=== PATIENT | female | born 1940 | race Two or more races ===

== ENCOUNTER 2019-05-01 16:51 | Inpatient (IN) | payer MEDICARE, MEDICAID ==
[~2019-05-01] VITALS: Ht 162.6 cm; Wt 118.1 kg
[~2019-05-01 16:51] MED LIST: ADVAIR 100-501 EACH INH; ALBUTEROL SULF8.5 GM INH; AMBIEN10 MG ORAL; AMIODARONE HCL200 MG ORAL; ATIVAN0.5 MG ORAL; ATIVAN2 MG ORAL; COLACE100 MG ORAL; GABAPENTIN300 MG ORAL; IBUPROFEN600 MG ORAL; LANOXIN250 MCG ORAL; LASIX20 M1 ORAL; LEVAQUIN250 M1 ORAL; MEDROL DOSEPAK4 MG ORAL; MYLANTA ORAL; NASAL SPRAY30 M1 NASAL; NITROSTAT0.4 M1 SL; PRAVACHOL20 MG ORAL; PREVACID15 MG ORAL; PROMETHAZINE-C118 M1 ORAL; QUETIAPINE FUMA25 MG ORAL; SPIRIVA18 MCG INH; THEOPHYLLINE A100 MG ORAL; TOPROL XL50 MG ORAL; TYLENOL650 MG/20. ORAL; XARELTO10 MG ORAL
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
[2019-05-01 17:00] VITALS: BP 156/75
[2019-05-01] MEDS ORDERED: Ipratropium 0.02% Inh Soln 2.5ml UD HHN ONE (17:00)
[2019-05-01] MEDS ORDERED: Solu-MEDROL 125mg Inj IVP ONE (17:00)
[2019-05-01] MEDS ORDERED: Albuterol ud Inhalation HHN ONE (17:00)
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
--- NOTE | 2019-05-01 17:05 | NUR ---
ED Nurse Note: rspiratory therapist on bedside giving nebulization.
--- NOTE | 2019-05-01 17:28 | NUR ---
ED Nurse Note: xray on bedside
[2019-05-01 17:41] LABS: BASOPHILS % (AUTO) 0.8 % (0.0-2.0); EOSINOPHILS % (AUTO) 2.1 % (0.0-3.0); HEMATOCRIT 37.8 % (37.0-47.0); HEMOGLOBIN 11.5 G/DL (12.0-16.0); LYMPHOCYTES % (AUTO) 17.3 % (20.0-45.0); MEAN CORPUSCULAR VOLUME 76 FL (80-99); MONOCYTES % (AUTO) 6.2 % (1.0-10.0); NEUTROPHILS % (AUTO) 73.6 % (45.0-75.0); PLATELET COUNT 269 K/UL (150-450); RED BLOOD COUNT 4.95 M/UL (4.20-5.40); RED CELL DISTRIBUTION WIDTH 17.2 % (11.6-14.8); WHITE BLOOD COUNT 10.7 K/UL (4.8-10.8)
[2019-05-01 17:54] LABS: ANION GAP 8 mmol/L (5-15); BLOOD UREA NITROGEN 10 mg/dL (7-18); CALCIUM 8.9 MG/DL (8.5-10.1); CARBON DIOXIDE 28 MMOL/L (21-32); CHLORIDE 106 MMOL/L (98-107); CREATININE 0.9 MG/DL (0.55-1.30); INR 1.6 (0.9-1.1); POTASSIUM 3.5 MMOL/L (3.5-5.1); SODIUM 142 MMOL/L (136-145)
[2019-05-01 18:03] LABS: ALANINE AMINOTRANSFERASE 16 U/L (12-78); ALBUMIN 3.3 G/DL (3.4-5.0); ALBUMIN/GLOBULIN RATIO 0.8 (1.0-2.7); ALKALINE PHOSPHATASE 96 U/L (46-116); ASPARTATE AMINO TRANSFERASE 29 U/L (15-37); BILIRUBIN,TOTAL 0.3 MG/DL (0.2-1.0); CREATINE KINASE 45 U/L (26-308)
[2019-05-01 18:13] VITALS: BP 158/80
[2019-05-01 18:14] LABS: APPEARANCE,URINE CLEAR; BILIRUBIN, URINE NEGATIVE (NEGATIVE); GLUCOSE, URINE (UA) NEGATIVE (NEGATIVE); KETONES,URINE NEGATIVE (NEGATIVE); LEUKOCYTE ESTERASE ,URINE 1+ (NEGATIVE); NITRITE,URINE NEGATIVE (NEGATIVE); PH,URINE 7 (4.5-8.0); PROTEIN,URINE 1+ (NEGATIVE); UROBILINOGEN,URINE 4 MG/DL (0.0-1.0)
[2019-05-01 18:15] LABS: COLOR,URINE YELLOW
[2019-05-01] MEDS ORDERED: Hydromorphone 0.5mg/0.5ml inj IVP ONE (18:30)
--- NOTE | 2019-05-01 18:34 | NUR ---
ED Nurse Note: ermd on bedside talking to pt regarding the hospital admission, pt is aware.
[2019-05-01] MEDS ORDERED: LORazepam Inj 2mg/ml 1ml IV ONE (19:00)
--- NOTE | 2019-05-01 19:35 | NUR ---
ED Nurse Note: Anabelle's O2 sat went down to 77, placed patient on 2L via NC.
[2019-05-01] MEDS ORDERED: Nitroglycerin Subl 0.4mg tab SL PRN (19:45)
[2019-05-01] MEDS ORDERED: LORazepam 0.5mg tab ORAL PRN (19:45)
[2019-05-01 20:00] VITALS: BP 161/85
[2019-05-01 20:50] VITALS: BP 155/76
--- NOTE | 2019-05-01 20:50 | NUR ---
ED Nurse Note: Patient was transfered to Tele due to CP, for observation. Patient was transfered to the unit via gurney by ACLS protocol, with all belongings. AAO x4, VSS at this time, skin is intact, warm to touch.
--- NOTE | 2019-05-01 21:00 | NUR ---
NURSE NOTES: Received report and patient via gurney from JERRY Steward from ED. Patient is awake showing no signs of acute distress. Respiration even and non labored 1.5L O2 NC. No sob noted. AOx4. ekg monitor tech on showing A-fib(hx, controlled). IV on right AC 20g patent and intact. Oriented to room and unit. Bed in lowest position, wheels locked and alarm on. Call light within reach. All needs attended and met. Will continue plan of care.
[2019-05-01] MEDS: Docusate 100mg cap ORAL SCH (21:32)
[2019-05-01] MEDS: QUEtiapine 200mg tab ORAL SCH (21:32)
[2019-05-01] MEDS: ALPRAZolam 0.5mg tab ORAL PRN (21:39)
--- NOTE | 2019-05-01 22:45 | History and Physical Report ---
DATE OF ADMISSION: 05/01/2019 REASON FOR ADMISSION: 1. Shortness of breath. 2. Chest pain. HISTORY OF PRESENT ILLNESS: The patient is a 78-year-old female brought in by EMS after complaining of some shortness of breath and wheezing along with chest pain. She does have known COPD and atrial fibrillation with multiple admissions in the past for similar complaints. The patient states she quit smoking approximately four years ago and that today despite her breathing treatments, she started to wheeze and not feel well and started developing progressive shortness of breath. The patient says she is quite anxious and takes Xanax on a regular basis and she feels dehydrated. She had been on Lasix. PAST MEDICAL HISTORY: 1. Atrial fibrillation. 2. COPD. 3. Chest pain. 4. Coronary artery disease. 5. Anxiety. 6. Hyperlipidemia. 7. CHF. PAST SURGICAL HISTORY: Noncontributory. ALLERGIES: Codeine and morphine. FAMILY HISTORY: Positive for hypertension and diabetes. REVIEW OF SYSTEMS: NEUROLOGIC: The patient denies headache, change in vision, syncope, or presyncopal episodes. CARDIOVASCULAR: She was having some chest pressure and tightness. PULMONARY: Mild shortness of breath and nonproductive cough. GASTROINTESTINAL/GENITOURINARY: No change in urinary or bowel habits. No nausea, vomiting, or diarrhea. ENDOCRINOLOGY: No night sweats, fevers, or chills. PHYSICAL EXAMINATION: VITAL SIGNS: Blood pressure 158/80, respiratory rate 20, pulse 90, and temperature 98.2. 100% oxygen saturation on room air. GENERAL: The patient is awake and alert, in mild respiratory distress. HEENT: Extraocular muscles intact. No lymphadenopathy noted. Oropharyngeal mucosa is clear and dry. CARDIOVASCULAR: S1, S2, irregular. PULMONARY: Mild diffuse expiratory wheezing, anterior and posterior upper and lower lobes. Fair air movement in all lung cid. ABDOMEN: Obese, nondistended, and nontender. EXTREMITIES: Mild erythema with edema. LABORATORY DATA: Labs dated 05/01/2019, white cell count 10.7, hemoglobin 11.5, and platelet count 269,000. Toxicology screen negative. BUN 10, creatinine 0.9, potassium 3.5, sodium 142. Troponin 0. ASSESSMENT AND PLAN: 1. Chronic obstructive pulmonary disease exacerbation. At this time, nebulizer treatments along with IV steroids have been initiated. Pulmonary has been consulted for further evaluation and management along with gentle hydration. 2. Chest pain. At this time, the patient says she has a history of coronary artery disease. Troponins are negative and unremarkable EKG and as such Cardiology has been consulted for further evaluation and management. Troponin initially at 0. We will repeat in a.m. 3. Hypertension. We will adjust medications as deemed appropriate. 4. Chronic anxiety followed by Psychiatry, on Xanax 2 mg every evening along with Seroquel 200 mg. 5. DVT prophylaxis. The patient is already on Xarelto. 6. Atrial fibrillation, chronic in nature. The patient on Xarelto. Edward Garcia MD DR: DERRICK JOB#: [id number] CC:
[2019-05-02] VITALS: BP 119/73
[2019-05-02] MEDS: Solu-MEDROL 40mg Inj IVP SCH ×4 (01:07→17:25)
[2019-05-02] MEDS: Albuterol/Ipratropium 3ml neb HHN SCH ×4 (01:44→19:13)
[2019-05-02 04:00] VITALS: BP 135/66
[2019-05-02 07:17] LABS: HEMATOCRIT 39.2 % (37.0-47.0); HEMOGLOBIN 11.9 G/DL (12.0-16.0); MEAN CORPUSCULAR VOLUME 78 FL (80-99); PLATELET COUNT 276 K/UL (150-450); RED BLOOD COUNT 5.02 M/UL (4.20-5.40); RED CELL DISTRIBUTION WIDTH 18.6 % (11.6-14.8)
--- NOTE | 2019-05-02 07:17 | NUR ---
HAND-OFF: Report given to JERRY Palacio.
--- NOTE | 2019-05-02 07:18 | NUR ---
NURSE NOTES: Received report from JERRY Venegas. Patient is resting in bed, sleeping in semi winters position. patient in stable condition with no hugh and symptoms of acute distress at this time. Breathing is unlabored with 1.5 liter Nasal cannula. Bed is in lowest position with two side rails up, brakes engaged . Call light and bed side table are within reach. Will continue plan of care.
[2019-05-02 07:41] LABS: ANION GAP 7 mmol/L (5-15); BLOOD UREA NITROGEN 11 mg/dL (7-18); CALCIUM 9.3 MG/DL (8.5-10.1); CARBON DIOXIDE 29 MMOL/L (21-32); CHLORIDE 107 MMOL/L (98-107); CREATININE 0.9 MG/DL (0.55-1.30); SODIUM 143 MMOL/L (136-145)
[2019-05-02 08:00] VITALS: BP 140/74
[2019-05-02] MEDS: Docusate 100mg cap ORAL SCH ×2 (09:04→20:41)
[2019-05-02] MEDS: Amiodarone 200mg tab ORAL SCH ×2 (09:04→17:26)
[2019-05-02] MEDS: Metoprolol Succinate XL 50mg tab ORAL SCH (09:05)
[2019-05-02] MEDS: Xarelto 15mg tab ORAL SCH (09:05)
[2019-05-02] MEDS: Aspirin Baby 81mg ORAL SCH (09:05)
--- NOTE | 2019-05-02 09:26 | Nephrology Progress Note ---
Assessment/Plan Assessment/Plan: 1. COPD exacerbation. -nebulizer treatments along with IV steroids - Pulmonary has been consulted for further evaluation and management - IVFs stopped 2. Chest pain. she has a history of coronary artery disease. - Troponins are negative and unremarkable EKG - Cardiology has been consulted 3. Hypertension. We will adjust medications as deemed appropriate. 4. Chronic anxiety followed by Psychiatry, on Xanax 2 mg every evening along with Seroquel 200 mg. 5. DVT prophylaxis. The patient is already on Xarelto. 6. Atrial fibrillation, chronic in nature. The patient on Xarelto. Subjective Date patient seen: May 02, 2019 Time patient seen: 09:23 ROS Limited/Unobtainable: No Allergies: Coded Allergies: CODEINE (Verified Allergy, Unknown, 09/03/16) MORPHINE (Unverified Allergy, Unknown, 05/01/19) Subjective Patient says chest pain better but still little short of breath Objective Last 24 Hour Vital Signs Date Time Temp Pulse Resp B/P (MAP) Pulse Ox O2 Delivery O2 Flow Rate FiO2 05/02/19 09:05 84 140/74 05/02/19 08:00 98.9 84 18 140/74 (96) 98 05/02/19 06:59 72 16 92 Nasal Cannula 2.0 28 05/02/19 06:58 76 18 97 Nasal Cannula 2.0 28 05/02/19 06:50 36 05/02/19 06:50 71 16 92 Room Air 21 05/02/19 04:00 87 05/02/19 04:00 98.6 100 18 135/66 (89) 95 05/02/19 01:50 86 20 96 Nasal Cannula 2.0 28 05/02/19 01:39 91 20 92 Nasal Cannula 2.0 28 05/02/19 00:00 98.6 80 20 119/73 (88) 97 05/02/19 00:00 103 05/01/19 21:00 Nasal Cannula 1.5 05/01/19 21:00 Nasal Cannula 1.5 05/01/19 20:50 98.3 98 20 155/76 97 Room Air 21 05/01/19 20:50 98.3 98 20 161/85 97 Room Air 21 05/01/19 20:00 96 05/01/19 20:00 98.3 98 20 161/85 (110) 97 05/01/19 19:08 98.2 05/01/19 18:13 90 20 158/80 95 05/01/19 17:10 88 18 100 Room Air 21 05/01/19 17:00 98.2 63 16 156/75 93 Room Air 21 05/01/19 17:00 63 16 93 Room Air 21 05/01/19 17:00 36 05/01/19 17:00 63 16 Room Air 21 05/01/19 17:00 78 16 93 Room Air 21 05/01/19 16:44 98.2 84 18 156/75 (102) 95 Room Air Intake and Output 05/01/19 05/02/19 19:00 07:00 Intake Total 300 ml 500 ml Balance 300 ml 500 ml Intake IV Total 300 ml Other 500 ml # Voids 3 Laboratory Tests 05/01/19 17:00: White Blood Count 10.7, Red Blood Count 4.95, Hemoglobin 11.5L, Hematocrit 37.8 , Mean Corpuscular Volume 76L, Mean Corpuscular Hemoglobin 23.3L, Mean Corpuscular Hemoglobin Concent 30.5L, Red Cell Distribution Width 17.2H, Platelet Count 269, Mean Platelet Volume 7.2, Neutrophils (%) (Auto) 73.6, Lymphocytes (%) (Auto) 17.3L, Monocytes (%) (Auto) 6.2, Eosinophils (%) (Auto) 2.1, Basophils (%) (Auto) 0.8, Prothrombin Time 16.7H, Prothromb Time International Ratio 1.6H, Activated Partial Thromboplast Time 45H, Sodium Level 142, Potassium Level 3.5, Chloride Level 106, Carbon Dioxide Level 28, Anion Gap 8, Blood Urea Nitrogen 10, Creatinine 0.9, Estimat Glomerular Filtration Rate , Glucose Level 119H, Lactic Acid Level 1.80, Calcium Level 8.9, Magnesium Level 1.9, Total Bilirubin 0.3, Aspartate Amino Transf (AST/SGOT) 29, Alanine Aminotransferase (ALT/SGPT) 16, Alkaline Phosphatase 96, Total Creatine Kinase 45, Troponin I 0.000, Pro-B-Type Natriuretic Peptide 1638H, Total Protein 7.2, Albumin 3.3L, Globulin 3.9, Albumin/Globulin Ratio 0.8L, Lipase 117, Serum Alcohol < 3 05/01/19 17:52: Urine Color Yellow, Urine Appearance Clear, Urine pH 7, Urine Specific [place] 1.005, Urine Protein 1+H, Urine Glucose (UA) Negative, Urine Ketones Negative, Urine Blood 1+H, Urine Nitrite Negative, Urine Bilirubin Negative, Urine Urobilinogen 4H, Urine Leukocyte Esterase 1+H, Urine RBC 0-2, Urine WBC 0-2, Urine Squamous Epithelial Cells Few, Urine Bacteria Occasional, Urine Opiates Screen Negative, Urine Barbiturates Screen Negative, Phencyclidine (PCP) Screen Negative, Urine Amphetamines Screen Negative, Urine Benzodiazepines Screen Negative, Urine Cocaine Screen Negative, Urine Marijuana (THC) Screen Negative 05/02/19 06:26: White Blood Count 9.0, Red Blood Count 5.02, Hemoglobin 11.9L, Hematocrit 39.2, Mean Corpuscular Volume 78L, Mean Corpuscular Hemoglobin 23.7L, Mean Corpuscular Hemoglobin Concent 30.3L, Red Cell Distribution Width 18.6H, Platelet Count 276, Mean Platelet Volume 7.7, Neutrophils (%) (Auto) , Lymphocytes (%) (Auto) , Monocytes (%) (Auto) , Eosinophils (%) (Auto) , Basophils (%) (Auto) , Sodium Level 143, Potassium Level 4.0, Chloride Level 107 , Carbon Dioxide Level 29, Anion Gap 7, Blood Urea Nitrogen 11, Creatinine 0.9, Estimat Glomerular Filtration Rate , Glucose Level 202H, Calcium Level 9.3, Troponin I 0.001, Differential Total Cells Counted 100, Neutrophils % (Manual) 85H, Lymphocytes % (Manual) 13L, Monocytes % (Manual) 2, Eosinophils % (Manual) 0, Basophils % (Manual) 0, Band Neutrophils 0, Platelet Estimate Adequate, Platelet Morphology Normal, Anisocytosis 1+ Height (Feet): 5 Height (Inches): 4.00 Weight (Pounds): 265 General Appearance: no apparent distress, alert EENT: normal ENT inspection Neck: normal alignment, supple Cardiovascular: normal rate, regular rhythm Respiratory/Chest: expiratory wheezing Abdomen: non tender, soft Edema: 1+ Arm (L), 1+ Arm (R), 1+ Leg (L), 1+ Leg (R), 1+ Pedal (L), 1+ Pedal ( R), 1+ Generalized Edward Garcia MD May 02, 2019 09:26
--- NOTE | 2019-05-02 11:20 | Diagnostic Imaging Report ---
Indication: Shortness of breath Technique: One view of the chest Comparison: 02/12/2016 Findings: The heart is enlarged. There is mild interstitial congestion. There is a new finding since prior exam. The pleural spaces are grossly clear. Impression: Cardiomegaly with evidence of mild interstitial edema.
--- NOTE | 2019-05-02 11:52 | NUR ---
PT NOTE Attempted to see patient for PT evaluation. Received patient asleep, arouseable to verbal stimuli. Began to interview patient regarding prior living situation and prior functional status. While speaking with the patient. the patient fell asleep and was not arouseable to verbal stimuli. Unable to complete PT evaluation at this time. Hakeem EDWARDS notified, will re-attempt PT evaluation tomorrow.
--- NOTE | 2019-05-02 11:56 | Consultation ---
History of Present Illness General Date patient seen: May 02, 2019 Time patient seen: 11:52 Chief Complaint: Chest Pain Present Illness HPI pt was brought in by ambulance from home c/o sob and chest pain. pt stated she has chest pain after having argument with her son, she was complaining of some shortness of breath and wheezing along with chest pain. She does have known COPD and atrial fibrillation with multiple admissions in the past for similar complaints. The patient states she quit smoking approximately four years ago and that today despite her breathing treatments, she started to wheeze and not feel well and started developing progressive shortness of breath. Chest x ray with Cardiomegaly with evidence of mild interstitial edema. Troponin negative, BNp elevated Allergies: Coded Allergies: CODEINE (Verified Allergy, Unknown, 09/03/16) MORPHINE (Unverified Allergy, Unknown, 05/01/19) Medication History Scheduled Amiodarone Hcl* (Cordarone*), 200 MG ORAL EVERY 12 HOURS, (Reported) Furosemide* (Lasix*), 20 MG ORAL TWICE A DAY, (Reported) Gabapentin* (Gabapentin*), 600 MG ORAL QHS, (Reported) Lansoprazole* (Prevacid*), MG ORAL DAILY, (Reported) Lorazepam* (Ativan*), 0.5 MG ORAL QHS, (Reported) Metoprolol Succinate* (Toprol Xl*), 50 MG ORAL DAILY, (Reported) Pravastatin Sod* (Pravachol*), 40 MG ORAL BEDTIME, (Reported) Rivaroxaban (Xarelto*), 15 MG ORAL DAILY, (Reported) Scheduled PRN Acetaminophen (Acetaminophen), 650 MG ORAL Q6H PRN for Prn Headache/Temp > 101, (Reported) Ibuprofen* (Motrin*), 600 MG ORAL Q6H PRN for For Pain, (Reported) Nitroglycerin (Nitrostat), 0.4 MG SL Q5M X3 DOSES PRN for CHEST PAIN, (Reported) Patient History Healthcare decision maker N Resuscitation status Full Code Advanced Directive on File Review of Systems Constitutional: Reports: no symptoms Eye: Reports: no symptoms ENT: Reports: no symptoms Respiratory: Reports: no symptoms Cardiovascular: Reports: chest pain Gastrointestinal: Reports: no symptoms Genitourinary: Reports: no symptoms Musculoskeletal: Reports: no symptoms Skin: Reports: no symptoms Psychiatric: Reports: no symptoms Neurological: Reports: no symptoms Endocrine: Reports: no symptoms Hematologic/Lymphatic: Reports: no symptoms Physical Exam General Appearance: no apparent distress, alert Lines, tubes and drains: peripheral HEENT: normocephalic, atraumatic, anicteric Neck: non-tender, normal alignment, supple, normal inspection Respiratory/Chest: chest wall non-tender, lungs clear, normal breath sounds Cardiovascular/Chest: normal peripheral pulses, normal rate, arrhythmia Abdomen: normal bowel sounds, non tender, soft, no organomegaly, no mass Extremities: normal range of motion, non-tender Last 24 Hour Vital Signs Date Time Temp Pulse Resp B/P (MAP) Pulse Ox O2 Delivery O2 Flow Rate FiO2 05/02/19 09:05 84 140/74 05/02/19 08:00 81 05/02/19 08:00 98.9 84 18 140/74 (96) 98 05/02/19 06:59 72 16 92 Nasal Cannula 2.0 28 05/02/19 06:58 76 18 97 Nasal Cannula 2.0 28 05/02/19 06:50 36 05/02/19 06:50 71 16 92 Room Air 21 05/02/19 04:00 87 05/02/19 04:00 98.6 100 18 135/66 (89) 95 05/02/19 01:50 86 20 96 Nasal Cannula 2.0 28 05/02/19 01:39 91 20 92 Nasal Cannula 2.0 28 05/02/19 00:00 98.6 80 20 119/73 (88) 97 05/02/19 00:00 103 05/01/19 21:00 Nasal Cannula 1.5 05/01/19 21:00 Nasal Cannula 1.5 05/01/19 20:50 98.3 98 20 155/76 97 Room Air 21 05/01/19 20:50 98.3 98 20 161/85 97 Room Air 21 05/01/19 20:00 96 05/01/19 20:00 98.3 98 20 161/85 (110) 97 05/01/19 19:08 98.2 05/01/19 18:13 90 20 158/80 95 05/01/19 17:10 88 18 100 Room Air 21 05/01/19 17:00 98.2 63 16 156/75 93 Room Air 21 05/01/19 17:00 63 16 93 Room Air 21 05/01/19 17:00 36 05/01/19 17:00 63 16 Room Air 21 05/01/19 17:00 78 16 93 Room Air 21 05/01/19 16:44 98.2 84 18 156/75 (102) 95 Room Air Intake and Output 05/01/19 05/02/19 19:00 07:00 Intake Total 300 ml 500 ml Balance 300 ml 500 ml Intake IV Total 300 ml Other 500 ml # Voids 3 Laboratory Tests Test 05/01/19 17:00 05/01/19 17:52 05/02/19 06:26 White Blood Count 10.7 K/UL (4.8-10.8) 9.0 K/UL (4.8-10.8) Red Blood Count 4.95 M/UL (4.20-5.40) 5.02 M/UL (4.20-5.40) Hemoglobin 11.5 G/DL (12.0-16.0) L 11.9 G/DL (12.0-16.0) L Hematocrit 37.8 % (37.0-47.0) 39.2 % (37.0-47.0) Mean Corpuscular Volume 76 FL (80-99) L 78 FL (80-99) L Mean Corpuscular Hemoglobin 23.3 PG (27.0-31.0) L 23.7 PG (27.0-31.0) L Mean Corpuscular Hemoglobin Concent 30.5 G/DL (32.0-36.0) L 30.3 G/DL (32.0-36.0) L Red Cell Distribution Width 17.2 % (11.6-14.8) H 18.6 % (11.6-14.8) H Platelet Count 269 K/UL (150-450) 276 K/UL (150-450) Mean Platelet Volume 7.2 FL (6.5-10.1) 7.7 FL (6.5-10.1) Neutrophils (%) (Auto) 73.6 % (45.0-75.0) % (45.0-75.0) Lymphocytes (%) (Auto) 17.3 % (20.0-45.0) L % (20.0-45.0) Monocytes (%) (Auto) 6.2 % (1.0-10.0) % (1.0-10.0) Eosinophils (%) (Auto) 2.1 % (0.0-3.0) % (0.0-3.0) Basophils (%) (Auto) 0.8 % (0.0-2.0) % (0.0-2.0) Prothrombin Time 16.7 SEC (9.30-11.50) H Prothromb Time International Ratio 1.6 (0.9-1.1) H Activated Partial Thromboplast Time 45 SEC (23-33) H Sodium Level 142 MMOL/L (136-145) 143 MMOL/L (136-145) Potassium Level 3.5 MMOL/L (3.5-5.1) 4.0 MMOL/L (3.5-5.1) Chloride Level 106 MMOL/L (98-107) 107 MMOL/L (98-107) Carbon Dioxide Level 28 MMOL/L (21-32) 29 MMOL/L (21-32) Anion Gap 8 mmol/L (5-15) 7 mmol/L (5-15) Blood Urea Nitrogen 10 mg/dL (7-18) 11 mg/dL (7-18) Creatinine 0.9 MG/DL (0.55-1.30) 0.9 MG/DL (0.55-1.30) Estimat Glomerular Filtration Rate mL/min (>60) mL/min (>60) Glucose Level 119 MG/DL (74-106) H 202 MG/DL (74-106) H Lactic Acid Level 1.80 mmol/L (0.4-2.0) Calcium Level 8.9 MG/DL (8.5-10.1) 9.3 MG/DL (8.5-10.1) Magnesium Level 1.9 MG/DL (1.8-2.4) Total Bilirubin 0.3 MG/DL (0.2-1.0) Aspartate Amino Transf (AST/SGOT) 29 U/L (15-37) Alanine Aminotransferase (ALT/SGPT) 16 U/L (12-78) Alkaline Phosphatase 96 U/L (46-116) Total Creatine Kinase 45 U/L (26-308) Troponin I 0.000 ng/mL (0.000-0.056) 0.001 ng/mL (0.000-0.056) Pro-B-Type Natriuretic Peptide 1638 pg/mL (0-125) H Total Protein 7.2 G/DL (6.4-8.2) Albumin 3.3 G/DL (3.4-5.0) L Globulin 3.9 g/dL Albumin/Globulin Ratio 0.8 (1.0-2.7) L Lipase 117 U/L (73-393) Serum Alcohol < 3 mg/dL Urine Color Yellow Urine Appearance Clear Urine pH 7 (4.5-8.0) Urine Specific [place] 1.005 (1.005-1.035) Urine Protein 1+ (NEGATIVE) H Urine Glucose (UA) Negative (NEGATIVE) Urine Ketones Negative (NEGATIVE) Urine Blood 1+ (NEGATIVE) H Urine Nitrite Negative (NEGATIVE) Urine Bilirubin Negative (NEGATIVE) Urine Urobilinogen 4 MG/DL (0.0-1.0) H Urine Leukocyte Esterase 1+ (NEGATIVE) H Urine RBC 0-2 /HPF (0 - 2) Urine WBC 0-2 /HPF (0 - 2) Urine Squamous Epithelial Cells Few /LPF (NONE/OCC) Urine Bacteria Occasional /HPF (NONE) Urine Opiates Screen Negative (NEGATIVE) Urine Barbiturates Screen Negative (NEGATIVE) Phencyclidine (PCP) Screen Negative (NEGATIVE) Urine Amphetamines Screen Negative (NEGATIVE) Urine Benzodiazepines Screen Negative (NEGATIVE) Urine Cocaine Screen Negative (NEGATIVE) Urine Marijuana (THC) Screen Negative (NEGATIVE) Differential Total Cells Counted 100 Neutrophils % (Manual) 85 % (45-75) H Lymphocytes % (Manual) 13 % (20-45) L Monocytes % (Manual) 2 % (1-10) Eosinophils % (Manual) 0 % (0-3) Basophils % (Manual) 0 % (0-2) Band Neutrophils 0 % (0-8) Platelet Estimate Adequate Platelet Morphology Normal Anisocytosis 1+ Height (Feet): 5 Height (Inches): 4.00 Weight (Pounds): 265 Medications Current Medications Medications (Trade) Dose Ordered Sig/Hoa Route PRN Reason Start Time Stop Time Status Last Admin Dose Admin Acetaminophen (Tylenol) 650 mg Q4H PRN ORAL Mild Pain (Pain Scale 1-3) 05/01/19 19:45 05/31/19 19:44 Albuterol/ Ipratropium (Albuterol/ Ipratropium) 3 ml Q6HRT HHN 05/02/19 01:00 05/07/19 00:59 05/02/19 06:57 Alprazolam (Xanax) 2 mg QHS PRN ORAL For Anxiety 05/01/19 20:00 05/08/19 19:59 05/01/19 21:39 Amiodarone HCl (Cordarone) 200 mg BID ORAL 05/02/19 09:00 06/01/19 08:59 05/02/19 09:04 Aspirin (ASA) 81 mg DAILY ORAL 05/02/19 09:00 06/01/19 08:59 05/02/19 09:05 Dextrose (Dextrose 50%) 25 ml Q30M PRN IV Hypoglycemia 05/01/19 19:45 05/31/19 19:44 Dextrose (Dextrose 50%) 50 ml Q30M PRN IV Hypoglycemia 05/01/19 19:45 05/31/19 19:44 Docusate Sodium (Colace) 100 mg EVERY 12 HOURS ORAL 05/01/19 21:00 05/31/19 20:59 05/02/19 09:04 Famotidine (Pepcid) 40 mg DAILY ORAL 05/02/19 09:00 06/01/19 08:59 05/02/19 09:05 Gabapentin (Neurontin) 600 mg QHS ORAL 05/01/19 21:00 05/31/19 20:59 05/01/19 21:32 Methylprednisolone Sodium Succinate (Solu-MEDROL) 40 mg EVERY 6 HOURS IVP 05/02/19 00:00 06/01/19 00:00 05/02/19 05:56 Metoprolol Succinate (Toprol XL) 50 mg DAILY ORAL 05/02/19 09:00 06/01/19 08:59 05/02/19 09:05 Nitroglycerin (Ntg) 0.4 mg Q5M PRN SL Prn Chest Pain 05/01/19 19:45 05/31/19 19:44 Pravastatin Sodium (Pravachol) 40 mg QHS ORAL 05/01/19 21:00 05/31/19 20:59 05/01/19 21:32 Quetiapine Fumarate (SEROquel) 200 mg QHS ORAL 05/01/19 21:00 05/31/19 20:59 05/01/19 21:32 Rivaroxaban (Xarelto) 15 mg DAILY ORAL 05/02/19 09:00 06/01/19 08:59 05/02/19 09:05 Assessment/Plan Assessment/Plan: Assessment: 1. Atrial fibrillation. 2. COPD. 3. Chest pain. 4. Coronary artery disease. 5. Anxiety. 6. Hyperlipidemia. 7. CHF. 8. chest pain PLAN: Echocardiogram to evaluate LV function Lexican stress test given CP and hx of CAD Continue xarelto amiodarone and metoprolol for AFIB Continue aspirin and pravastatin for CAD Vahe Garrett MD May 02, 2019 11:56
[2019-05-02] MEDS ORDERED: Lexiscan 0.4mg/5ml syringe IV PRN (11:58)
[2019-05-02 12:00] VITALS: BP 150/81
--- NOTE | 2019-05-02 12:16 | Diagnostic Imaging Report ---
Indication: Bilateral leg pain Technique: Grayscale duplex images of the bilateral lower extremity veins Comparison: none Findings: Bilaterally, grayscale duplex images demonstrate no evidence of intraluminal thrombus. Normal phasic Doppler waveforms, demonstrating normal augmentation response, no evidence of valvular insufficiency. Normal compressibility. Impression: Negative for evidence of lower extremity deep venous thrombosis This agrees with the preliminary interpretation provided overnight by Dr. Osorio
--- NOTE | 2019-05-02 13:00 | Consultation ---
Consult Note Consult Note HISTORY OF PRESENT ILLNESS: The patient is a 78-year-old female brought in by EMS after complaining of some shortness of breath and wheezing along with chest pain. She has a history of COPD and atrial fibrillation with multiple admissions in the past for similar complaints. The patient states she quit smoking approximately four years ago and that today despite her breathing treatments, she started to wheeze and not feel well and started developing progressive shortness of breath. The patient says she is quite anxious and takes Xanax on a regular basis and she feels dehydrated. She had been on Lasix. PAST MEDICAL HISTORY: 1. Atrial fibrillation. 2. COPD. 3. Chest pain. 4. Coronary artery disease. 5. Anxiety. 6. Hyperlipidemia. 7. CHF. PAST SURGICAL HISTORY: Noncontributory. ALLERGIES: Codeine and morphine. FAMILY HISTORY: Positive for hypertension and diabetes. REVIEW OF SYSTEMS: NEUROLOGIC: The patient denies headache, change in vision, syncope, or presyncopal episodes. CARDIOVASCULAR: She was having some chest pressure and tightness. PULMONARY: Mild shortness of breath and nonproductive cough. GASTROINTESTINAL/GENITOURINARY: No change in urinary or bowel habits. No nausea, vomiting, or diarrhea. ENDOCRINOLOGY: No night sweats, fevers, or chills. PHYSICAL EXAMINATION: VITAL SIGNS: Blood pressure 158/80, respiratory rate 20, pulse 90, and temperature 98.2. 100% oxygen saturation on room air. GENERAL: The patient is awake and alert, in mild respiratory distress. HEENT: Extraocular muscles intact. No lymphadenopathy noted. Oropharyngeal mucosa is clear and dry. CARDIOVASCULAR: S1, S2, irregular. PULMONARY: Mild diffuse expiratory wheezing, anterior and posterior upper and lower lobes. Fair air movement in all lung cid. ABDOMEN: Obese, nondistended, and nontender. EXTREMITIES: Mild erythema with edema. LABORATORY DATA: Labs dated 05/01/2019, white cell count 10.7, hemoglobin 11.5, and platelet count 269,000. Toxicology screen negative. BUN 10, creatinine 0.9, potassium 3.5, sodium 142. Troponin 0. ASSESSMENT AND PLAN: 1. Chronic obstructive pulmonary disease exacerbation. Agree with nebulizer treatments along with IV steroids have been initiated. 2. Chest pain. Troponins are negative and unremarkable EKG 3. Hypertension. 4. Chronic anxiety 5. DVT prophylaxis. The patient is already on Xarelto. 6. Atrial fibrillation, chronic in nature. The patient on Xarelto. Hugo Estrella MD, MD May 02, 2019 13:00
--- NOTE | 2019-05-02 14:16 | NUR ---
ST NOTE: REFERRED FOR SWALLOW EVALUATION BY DR. FLORENCE SEE FULL REPORT TO FOLLOW. DYSPHAGIA RISK FACTORS FOR THIS 78 Y.O. AMERICAN-SPEAKING (DOLORES) FEMALE: ACUTE COPD EXACERBATION, CP, AND SOB, RR 16, CARDIOMEGALY WITH EVIDENCE OF MID INTERSTITIAL EDEMA. PER RT PROBLEMS CLEARING HER SECRETIONS. POOR AND MISSING DENTITION (HAS ONE UPPER LOOSE TOOTH MD AWARE AND CANNOT BE PULLED NOW) H/O DEMENTIA, SMOKING QUIT 4 YEARS AGO, OBESE CLASS II, ANXIETY, HTN, CAD, AF, CHF. CURRENTLY ON LOW REG TEXTURE DIET AND THIN LIQUIDS (PER RN COUGHS WITH MEAL ? INTAKE NOT RECORDED) ON 1999 JESÚS RESTRICTION SCREENING AND INITIAL IMPRESSIONS: PATIENT ALERT (ON 1.5 LITERS 02 NC) AND SAYS SHE COUGHS ON THIN LIQUIDS. GIVEN 3 OZ SEQUENTIAL SIPS WATER TEST KERMIT SWALLOW PROTOCOL, ONLY ABLE TO TAKE 2 SIPS VIA STRAW BEFORE SHE NEEDS TO TAKE A BREATH. NO OVERT S/S OF ASPIRATION BUT PT REPORTEDLY COUGHS WITH THIS CONSISTENCY. GROSSLY FUNCTIONAL SWALLOW WITH NECTAR THICK LIQUIDS VIA CUP ONE SIP BEST AND PUREED TSP. PATIENT STATES SHE CANNOT SWALLOW SOLIDS SINCE HER THROAT CLOSES UP (REFUSED MASTICATED SOLIDS BUT JERRY BROWN SAYS SHE COUGHS DURING MEALS). HAS SILENT ASP RISK DUE TO DEMENTIA DX AND ASP RISK DUE TO COPD EXACERBATION RECOMMENDATIONS: DOWNGRADE TO LOW NA PUREED AND NECTAR THICK LIQUIDS WITH POSTED ASP/REFLUX PREC FOR NOW SUPERVISE MEALS MOD BARIUM SWALLOW STUDY TO FURTHER ASSESS SWALLOW, DETERMINE SILENT ASP RISK/ETIOLOGY, AND ATTEMPT TRIAL TX TECHNIQUES SKILLED DYSPHAGIA MANAGEMENT AND TX COG-COM EVAL/TX D/W JRERY BROWN AND DR FLORENCE PATIENT AGREES.
--- NOTE | 2019-05-02 14:44 | NUR ---
CASE MANAGEMENT:REVIEW 78 YR OLD FEMALE FROM HOME TO ER CC: CHEST PAIN AND SOB SI: CHEST PAIN. COPD 98.3 84 18 156/75 95% ON RA...SATS DROPPED TO 77% BNP+1638 IS: PLACED ON 2L/NC DUONEB HHN IV SOLUMEDROL 1L NS BOLUS CHEST XRAY BLOOD CX : TO TELEMETRY IS: ASA PO QD DUONEB HHN Q6HRS RTC XARELTO PO QD IV SOLUMEDROL Q6HRS INTERQUAL CRITERIA MET
[2019-05-02 16:00] VITALS: BP 131/79
--- NOTE | 2019-05-02 18:03 | Cardiology Report ---
APPROVED REPORT EXAM: Two-dimensional and M-mode echocardiogram with Doppler and color Doppler. INDICATION Chest Pain M-Mode DIMENSIONS IVSd1.3 (0.7-1.1cm)Left Atrium (MM)3.8 (1.6-4.0cm) LVDd5.4 (3.5-5.6cm)Aortic Root3.0 (2.0-3.7cm) PWd1.0 (0.7-1.1cm)Aortic Cusp Exc.1.8 (1.5-2.0cm) IVSs1.6 cm LVDs3.8 (2.5-4.0cm) PWs1.3 cm Other Information Technically limited study due to body habitus. Normal left ventricular chamber size, systolic function and wall motion. Left ventricular ejection fraction estimated to be 60%. Mild left ventricular hypertrophy . Trace posterior pericardial effusion Mild left atrial enlargement Right ventricle seem fore shortened otherwise chamber size are within normal limits. Aortic valve calcification with evidence of adequate cusp excursion on one view Mildly thickened mitral valve leaflets with normal excursion. Mild mitral annulus and aortic root calcification. Pulmonic valve not well visualized. Normal tricuspid valve structure IVC meausured at 1.4cm with physiologic collapse . A color flow and spectral Doppler study was performed and revealed: Mild aortic insufficiency doppler images show a Peak gradient 24 mmhg , and mean gradient of 11 mmhg across the aortic valve however, there may flow contamination from the TR profile Mitral inflow indicate normal left ventricular diastolic function. mild to moderate mitral regurgitation. Moderate tricuspid regurgitation. Tricuspid systolic velocities suggests peak right ventricular systolic pressure of 59mmHg, consistent with moderate pulmonary hypertension turbulent flow noted at the pulmonic valve level , more detail imaging will need to be done , i have asked the tech to repeat imaging in this area to clearer information
--- NOTE | 2019-05-02 18:51 | Cardiology Report ---
APPROVED REPORT EKG Measurement Heart [id number] Atrial fibrillation Low voltage QRS Prolonged QT Abnormal ECG
--- NOTE | 2019-05-02 19:30 | NUR ---
HAND-OFF: Report given to JERRY Queen.
--- NOTE | 2019-05-02 19:48 | NUR ---
NURSE NOTES: RECEIVED PATIENT RESTING IN BED, NO COMPLAINTS OF PAIN AT THIS TIME. FALL AND ASPIRATION PRECAUTIONS IN PLACE: CALL LIGHT AND BEDSIDE TABLE WITHIN REACH, BED IN LOW POSITION AND BED ALARM ON ZONE 2. WILL CONTINUE WITH PLAN OF CARE.
[2019-05-02 20:00] VITALS: BP 142/76
[2019-05-02] MEDS: QUEtiapine 200mg tab ORAL SCH (20:41)
[2019-05-03] VITALS: BP 151/76
[2019-05-03] MEDS: Solu-MEDROL 40mg Inj IVP SCH ×2 (00:15→06:20)
[2019-05-03] MEDS: Albuterol/Ipratropium 3ml neb HHN SCH ×4 (01:05→19:57)
--- NOTE | 2019-05-03 02:32 | NUR ---
HAND-OFF: Report given to Devang CAMARENA RN. PATIENT RESTING IN BED, NO SIGNS OF DISTRESS NOTED.
--- NOTE | 2019-05-03 02:40 | NUR ---
NURSE NOTES: Received report from JERRY Queen. Patient in bed asleep showing no signs of acute distress. Respiration even and non labored on 1.5L O2NC. No sob noted. VS stable. IV patent and intact. Bed in lowest position, wheels locked and alarm on. Call light within reach. All needs attended and met. Will continue plan of care,.
[2019-05-03 04:00] VITALS: BP 152/83
--- NOTE | 2019-05-03 07:33 | NUR ---
HAND-OFF: Report given to JERRY Saravia.
--- NOTE | 2019-05-03 07:33 | NUR ---
NURSE NOTES: Report received from Marvin EDWARDS. Pt asleep but responsive to verbal stimuli. No c/o pain. No signs of distress noted. IV site RAC 20G SL intact and asymptomatic. Bed in its lowest position and locked. On O2 1.5 via N/C. No SOB noted. Rhythm with A-fib reported from previous shift. HOB elevated with 45degree. Call light within reach. Will continue to plan of care.
--- NOTE | 2019-05-03 07:59 | Nephrology Progress Note ---
Assessment/Plan Assessment/Plan: 1. COPD exacerbation. -nebulizer treatments. wean steroids - Pulmonary mgmt 2. Chest pain. she has a history of coronary artery disease. - Troponins are negative and unremarkable EKG - lexistress test. Appreciate cardiology - DC patient once cleared by cardiology 3. Hypertension. stable 4. Chronic anxiety followed by Psychiatry, on Xanax 2 mg every evening along with Seroquel 200 mg. 5. DVT prophylaxis. The patient is already on Xarelto. 6. Atrial fibrillation, chronic in nature. The patient on Xarelto and amio Subjective Date patient seen: May 03, 2019 Time patient seen: 07:55 ROS Limited/Unobtainable: No Allergies: Coded Allergies: CODEINE (Verified Allergy, Unknown, 09/03/16) MORPHINE (Unverified Allergy, Unknown, 05/01/19) Subjective Patient says chest pain better. Feeling and breathing better Objective Last 24 Hour Vital Signs Date Time Temp Pulse Resp B/P (MAP) Pulse Ox O2 Delivery O2 Flow Rate FiO2 05/03/19 07:00 78 18 93 Nasal Cannula 2.0 28 05/03/19 04:00 97.4 82 18 152/83 (106) 93 05/03/19 04:00 86 05/03/19 01:08 92 18 96 Nasal Cannula 2.0 28 05/03/19 01:06 89 18 94 Nasal Cannula 2.0 28 05/03/19 00:00 97.8 92 18 151/76 (101) 95 05/03/19 00:00 90 05/02/19 21:00 Nasal Cannula 1.5 05/02/19 20:00 98.1 95 18 142/76 (98) 94 05/02/19 20:00 89 05/02/19 19:23 88 18 97 Nasal Cannula 2.0 28 05/02/19 19:13 85 18 93 Nasal Cannula 2.0 28 05/02/19 19:13 85 18 93 Nasal Cannula 2.0 28 05/02/19 16:00 89 05/02/19 16:00 97.5 80 18 131/79 (96) 98 05/02/19 13:03 77 16 96 Nasal Cannula 2.0 28 05/02/19 12:50 76 18 94 Nasal Cannula 2.0 28 05/02/19 12:50 36 05/02/19 12:00 85 05/02/19 12:00 98.0 86 19 150/81 (104) 96 05/02/19 09:05 84 140/74 05/02/19 09:00 Nasal Cannula 1.5 05/02/19 08:00 81 05/02/19 08:00 98.9 84 18 140/74 (96) 98 Intake and Output 05/02/19 05/03/19 19:00 07:00 Intake Total 650 ml 120 ml Balance 650 ml 120 ml Intake Oral 120 ml Other 650 ml # Voids 3 Height (Feet): 5 Height (Inches): 4.00 Weight (Pounds): 260 General Appearance: no apparent distress, alert EENT: normal ENT inspection Neck: normal alignment, supple Cardiovascular: normal rate, regular rhythm Respiratory/Chest: expiratory wheezing Abdomen: non tender, soft Edema: 1+ Arm (L), 1+ Arm (R), 1+ Leg (L), 1+ Leg (R), 1+ Pedal (L), 1+ Pedal ( R), 1+ Generalized Edward Garcia MD May 03, 2019 07:59
[2019-05-03] MEDS: Metoprolol Succinate XL 50mg tab ORAL SCH (08:09)
--- NOTE | 2019-05-03 08:30 | Pulmonology Progress Note ---
Assessment/Plan Assessment/Plan ASSESSMENT AND PLAN: 1. Chronic obstructive pulmonary disease exacerbation. Agree with nebulizer treatments along with steroids. 2. Chest pain. Troponins are negative and unremarkable EKG 3. Hypertension. 4. Chronic anxiety 5. DVT prophylaxis. The patient is already on Xarelto. 6. Atrial fibrillation, chronic in nature. Continue Xarelto. Subjective Interval Events: Looking and feeling better Constitutional: Reports: no symptoms HEENT: Repors: no symptoms Respiratory: Reports: no symptoms, shortness of breath Cardiovascular: Reports: no symptoms Gastrointestinal/Abdominal: Reports: no symptoms Allergies: Coded Allergies: CODEINE (Verified Allergy, Unknown, 09/03/16) MORPHINE (Unverified Allergy, Unknown, 05/01/19) Objective Last 24 Hour Vital Signs Date Time Temp Pulse Resp B/P (MAP) Pulse Ox O2 Delivery O2 Flow Rate FiO2 05/03/19 07:11 90 18 96 Nasal Cannula 2.0 28 05/03/19 07:10 90 18 96 Nasal Cannula 2.0 28 05/03/19 07:00 78 18 93 Nasal Cannula 2.0 28 05/03/19 04:00 97.4 82 18 152/83 (106) 93 05/03/19 04:00 86 05/03/19 01:08 92 18 96 Nasal Cannula 2.0 28 05/03/19 01:06 89 18 94 Nasal Cannula 2.0 28 05/03/19 00:00 97.8 92 18 151/76 (101) 95 05/03/19 00:00 90 05/02/19 21:00 Nasal Cannula 1.5 05/02/19 20:00 98.1 95 18 142/76 (98) 94 05/02/19 20:00 89 05/02/19 19:23 88 18 97 Nasal Cannula 2.0 28 05/02/19 19:13 85 18 93 Nasal Cannula 2.0 28 05/02/19 19:13 85 18 93 Nasal Cannula 2.0 28 05/02/19 16:00 89 05/02/19 16:00 97.5 80 18 131/79 (96) 98 05/02/19 13:03 77 16 96 Nasal Cannula 2.0 28 05/02/19 12:50 76 18 94 Nasal Cannula 2.0 28 05/02/19 12:50 36 05/02/19 12:00 85 05/02/19 12:00 98.0 86 19 150/81 (104) 96 05/02/19 09:05 84 140/74 05/02/19 09:00 Nasal Cannula 1.5 Intake and Output 05/02/19 05/03/19 19:00 07:00 Intake Total 650 ml 120 ml Balance 650 ml 120 ml Intake Oral 120 ml Other 650 ml # Voids 3 General Appearance: no acute distress Respiratory/Chest: chest wall non-tender, decreased breath sounds Cardiovascular: normal peripheral pulses Microbiology Date/Time Source Procedure Growth Status 05/01/19 17:10 Blood Blood Culture - Preliminary NO GROWTH AFTER 24 HOURS Resulted 05/01/19 16:55 Blood Blood Culture - Preliminary NO GROWTH AFTER 24 HOURS Resulted Current Medications Medications (Trade) Dose Ordered Sig/Hoa Route PRN Reason Start Time Stop Time Status Last Admin Dose Admin Acetaminophen (Tylenol) 650 mg Q4H PRN ORAL Mild Pain (Pain Scale 1-3) 05/01/19 19:45 05/31/19 19:44 Albuterol/ Ipratropium (Albuterol/ Ipratropium) 3 ml Q6HRT HHN 05/02/19 01:00 05/07/19 00:59 05/03/19 07:00 Alprazolam (Xanax) 2 mg QHS PRN ORAL For Anxiety 05/01/19 20:00 05/08/19 19:59 05/01/19 21:39 Amiodarone HCl (Cordarone) 200 mg BID ORAL 05/02/19 09:00 06/01/19 08:59 05/02/19 17:26 Aspirin (ASA) 81 mg DAILY ORAL 05/02/19 09:00 06/01/19 08:59 05/02/19 09:05 Dextrose (Dextrose 50%) 25 ml Q30M PRN IV Hypoglycemia 05/01/19 19:45 05/31/19 19:44 Dextrose (Dextrose 50%) 50 ml Q30M PRN IV Hypoglycemia 05/01/19 19:45 05/31/19 19:44 Docusate Sodium (Colace) 100 mg EVERY 12 HOURS ORAL 05/01/19 21:00 05/31/19 20:59 05/02/19 20:41 Famotidine (Pepcid) 40 mg DAILY ORAL 05/02/19 09:00 06/01/19 08:59 05/02/19 09:05 Gabapentin (Neurontin) 600 mg QHS ORAL 05/01/19 21:00 05/31/19 20:59 05/02/19 20:41 Metoprolol Succinate (Toprol XL) 50 mg DAILY ORAL 05/02/19 09:00 06/01/19 08:59 05/02/19 09:05 Nitroglycerin (Ntg) 0.4 mg Q5M PRN SL Prn Chest Pain 05/01/19 19:45 05/31/19 19:44 Pravastatin Sodium (Pravachol) 40 mg QHS ORAL 05/01/19 21:00 05/31/19 20:59 05/02/19 20:41 Prednisone (predniSONE) 20 mg DAILY ORAL 05/03/19 09:00 06/02/19 08:59 Quetiapine Fumarate (SEROquel) 200 mg QHS ORAL 05/01/19 21:00 05/31/19 20:59 05/02/19 20:41 Regadenoson (Lexiscan) 0.4 mg ONCE PRN IV cardiology 05/02/19 11:58 05/03/19 23:59 Rivaroxaban (Xarelto) 15 mg DAILY ORAL 05/02/19 09:00 06/01/19 08:59 05/02/19 09:05 Hugo Ortiz MD May 03, 2019 08:30
[2019-05-03 09:00] VITALS: BP 156/91
--- NOTE | 2019-05-03 09:15 | NUR ---
CASE MANAGEMENT:REVIEW 05/03/19 SI: COPD EXACERBATION. CHEST PAIN 97.3 87 20 156/91 96% ON 2L/NC TROPONIN(-) X2 IS: PREDNISONE PO QD ASA PO QD PEPCID PO QD AMIODARONE PO BID TOPROL XL PO QD XARELTO PO QD DUONEB HHN Q6HRS RTC : TELEMETRY STATUS DCP: PATIENT IS FROM HOME PLAN: CARDIAC STRESS TEST ORDERED
[2019-05-03] MEDS: Amiodarone 200mg tab ORAL SCH ×2 (09:20→18:22)
[2019-05-03] MEDS: Aspirin Baby 81mg ORAL SCH (09:20)
[2019-05-03] MEDS: Xarelto 15mg tab ORAL SCH (09:21)
[2019-05-03] MEDS: Docusate 100mg cap ORAL SCH ×2 (09:21→21:40)
--- NOTE | 2019-05-03 09:38 | Cardiology Progress Note ---
Assessment/Plan Status: stable Assessment/Plan Assessment/Plan Assessment/Plan: Assessment: 1. Atrial fibrillation. 2. COPD. 3. Chest pain. 4. Coronary artery disease. 5. Anxiety. 6. Hyperlipidemia. 7. CHF. 8. chest pain PLAN: Echocardiogram to evaluate LV function Lexican stress test given CP and hx of CAD Continue xarelto amiodarone and metoprolol for AFIB Continue aspirin and pravastatin for CAD Subjective Cardiovascular: Reports: no symptoms Respiratory: Reports: no symptoms Gastrointestinal/Abdominal: Reports: no symptoms Genitourinary: Reports: no symptoms Subjective No acute events, no Chest pain, awaiting stress test today Objective Last 24 Hour Vital Signs Date Time Temp Pulse Resp B/P (MAP) Pulse Ox O2 Delivery O2 Flow Rate FiO2 05/03/19 09:00 97.3 87 20 156/91 (112) 96 05/03/19 07:11 90 18 96 Nasal Cannula 2.0 28 05/03/19 07:10 90 18 96 Nasal Cannula 2.0 28 05/03/19 07:00 78 18 93 Nasal Cannula 2.0 28 05/03/19 04:00 97.4 82 18 152/83 (106) 93 05/03/19 04:00 86 05/03/19 01:08 92 18 96 Nasal Cannula 2.0 28 05/03/19 01:06 89 18 94 Nasal Cannula 2.0 28 05/03/19 00:00 97.8 92 18 151/76 (101) 95 05/03/19 00:00 90 05/02/19 21:00 Nasal Cannula 1.5 05/02/19 20:00 98.1 95 18 142/76 (98) 94 05/02/19 20:00 89 05/02/19 19:23 88 18 97 Nasal Cannula 2.0 28 05/02/19 19:13 85 18 93 Nasal Cannula 2.0 28 05/02/19 19:13 85 18 93 Nasal Cannula 2.0 28 05/02/19 16:00 89 05/02/19 16:00 97.5 80 18 131/79 (96) 98 05/02/19 13:03 77 16 96 Nasal Cannula 2.0 28 05/02/19 12:50 76 18 94 Nasal Cannula 2.0 28 05/02/19 12:50 36 05/02/19 12:00 85 05/02/19 12:00 98.0 86 19 150/81 (104) 96 General Appearance: no apparent distress EENT: PERRL/EOMI, normal ENT inspection, TMs normal, pharynx normal Neck: non-tender, normal alignment, supple, normal inspection, no JVD Rhythm: Afib Cardiovascular: normal peripheral pulses, normal rate, regularly irregular, arrhythmia Respiratory/Chest: chest wall non-tender, lungs clear, normal breath sounds Abdomen: normal bowel sounds, non tender, soft, no organomegaly Extremities: normal range of motion, non-tender, normal inspection, no calf tenderness, no swelling 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
--- NOTE | 2019-05-03 09:40 | NUR ---
PT EVALUATION NOTE Patient seen for initial evaluation, see complete evaluation for details. Patient presents with generalized weakness, LE pain, impaired balance and decreased safety awareness which impairs patient's ability to perform mobility tasks. Patient lives in a second floor apartment without elevator access. Patient will benefit from skilled inpatient PT intervention to address strength, balance, endurance and safety for improved functional mobility. Recommend discharge to SNF for rehab vs home with home PT depending on patient's progress once medically cleared by MD. Patient has FWW and wheelchair at home. Addendum: 05/03/19 at 1248 by NADIR LUCIO PT Amended: Links added.
--- NOTE | 2019-05-03 10:47 | NUR ---
UPDATED SWALLOW/SPEECH THERAPY NOTE AND SWALLOW EVAL RESULTS: REFERRED FOR SWALLOW EVALUATION BY DR. FLORENCE SEE FULL REPORT TO FOLLOW. DYSPHAGIA RISK FACTORS FOR THIS 78 Y.O. OCCITAN-SPEAKING (KENYAN) FEMALE: ACUTE COPD EXACERBATION, CP, AND SOB, RR 16, CARDIOMEGALY WITH EVIDENCE OF MID INTERSTITIAL EDEMA. POOR AND MISSING DENTITION (HAS ONE UPPER LOOSE TOOTH MD AWARE AND CANNOT BE PULLED NOW) H/O DEMENTIA, SMOKING QUIT 4 YEARS AGO, OBESE CLASS II, ANXIETY, HTN, CAD, AF, CHF. NO POLST REGARDING TUBE FEEDING PREFERENCES. AT HOME REG DIET TEXTURE AND THIN LIQUIDS CURRENTLY ON LOW REG TEXTURE DIET AND THIN LIQUIDS (PER RN COUGHS WITH MEAL ? INTAKE NOT RECORDED).PER RT PROBLEMS CLEARING HER SECRETIONS PER ANOTHER RN 05/03/19 PT SOMETIMES COUGHS WITH LARGE TSP NECTAR THICK LIQUID. PER RD, PT ON 1999 [address] RESTRICTION. PATIENT ALERT (ON 1.5 LITERS 02 NC) AND SAYS SHE COUGHS ON THIN LIQUIDS AND CHOKES ON MASTICATED SOLIDS. INITIAL IMPRESSIONS: S/S OF SIGNIFICANT DYSPHAGIA WITH THIN LIQUIDS, LARGE TSP OF NECTAR THICK LIQUIDS (DISLIKES HONEY THICK LIQUIDS), AND MASTICATED SOLIDS. HAS SILENT ASPIRATION RISK DUE TO DX OF DEMENTIA IN CHART AND HIGH ASP RISK DUE TO COPD EXACERBATION STATUS. OROMOTOR SKILLS ADEQUATE VOICE IS CLEAR AND VOLITIONAL COUGH FAIR GIVEN 3 OZ SEQUENTIAL SIPS WATER TEST CHELSEA SWALLOW PROTOCOL, ONLY ABLE TO TAKE 2 SIPS VIA STRAW BEFORE SHE NEEDS TO TAKE A BREATH. NO OVERT S/S OF ASPIRATION. GROSSLY FUNCTIONAL SWALLOW WITH NECTAR THICK LIQUIDS VIA CUP ONE SIP BEST AND PUREED TSP. PATIENT STATES SHE CANNOT SWALLOW SOLIDS SINCE HER THROAT CLOSES UP REFUSED MASTICATED SOLIDS BUT JERRY BROWN SAYS SHE COUGHS DURING MEALS. RECOMMENDATIONS: DOWNGRADE TO LOW NA PUREED AND NECTAR THICK LIQUIDS (SMALL TSP LEVEL) WITH POSTED ASP/REFLUX PRECAUTIONS FOR NOW SUPERVISE MEALS. MOD BARIUM SWALLOW STUDY TO FURTHER ASSESS SWALLOW, DETERMINE SILENT ASP RISK/ETIOLOGY, AND ATTEMPT TRIAL TX TECHNIQUES SKILLED DYSPHAGIA MANAGEMENT AND TX COG-COM EVAL/TX D/W JERRY BROWN AND DR FLORENCE PATIENT AGREES D/W NEW RN MIN ON 05/03/19 Addendum: 05/03/19 at 1059 by CORDELIA ALVARADO DIVISION TOLL WIRE CHIEF ADDENDUM: SWALLOW STATUS: PATIENT GETTING A STRESS TEST,WILL TRY TO COMPLETE THE MOD BARIUM SWALLOW STUDY TODAY. PER RN, MIN, PT DID COUGH WITH LARGE TSP NECTAR THICK LIQUID BUT DID NOT HAVE A PROBLEM WITH PUREED AND CRUSHED MEDS. INTAKE WAS 50X2 AND 100%. GOALS MET FOR NEW RN MIN EDUCATED/TRAINED IN POSTED ASP PRECAUTIONS. WILL NOT DOWNGRADE TO HONEY THICK LIQUIDS (PT DISLIKES) PLAN: CONTINUE WITH PUREED AND NECTAR THICK LIQUIDS (SMALL TSP ONLY) FOR NOW UNTIL MODIFIED BARIUM SWALLOW STUDY COMPLETED SOON.
--- NOTE | 2019-05-03 11:20 | NUR ---
NURSE NOTES: Pt c/o SOB and O2 sat with 96% on O2 1.5LPM via N/C. Dr. Garcia notified. DuoNeb Q4 PRN Added to meds for SOB. Made Dr. Ortiz aware.
--- NOTE | 2019-05-03 11:28 | NUR ---
INSURANCE UPDATED CLINICALS and REVIEW HAVE BEEN FAXED PLEASE FAX THE REVIEW AND CLINICAL TO: [facility] REPORTED TO: [place] :[phone] AUTH# [id number] FAX ALL CLINICALS TO: [phone]
[2019-05-03 12:00] VITALS: BP 160/83
[2019-05-03] MEDS: traMADol 50mg tab ORAL SCH ×2 (14:20→15:11)
--- NOTE | 2019-05-03 14:55 | NUR ---
NURSE NOTES: Dobutamin stress test done without complication
[2019-05-03] MEDS: Albuterol/Ipratropium 3ml neb HHN PRN (15:15)
[2019-05-03 16:00] VITALS: BP 143/69
--- NOTE | 2019-05-03 16:53 | NUR ---
Social Service Note JOCELYNN met with patient to complete home safety evaluation. Patient is alert, oriented and verbally responsive. Patient states she lives at home with her son Armin Frank [phone]. Son is her primary caregiver. Patient receives [facility] however recently has fired caregiver due to poor behaviors. Patient states she requires assistance with walking. Patient states she has a bedside commode and FWW. Patient states her poor ambulation keeps her at home due to inability to walk down the stairs of her apartment. Apartment doesn't have an elevator. Patient states she last seen her PCP Dr. Charles Nguyen [phone] was 3 months ago. Patient states she has O2 at home, Cpap and nebulizer. Patient indicates she would like to return home upon discharge. Home health not visiting at this time. Upon discharge patient will require ambulance transportation home. JOCELYNN left a message to [facility] to determine if there is/are open cases. No return call at this time. Patient is full code. Will continue to monitor and assist as needed.
--- NOTE | 2019-05-03 19:20 | NUR ---
HAND-OFF: Report given to reymundo EDWARDS. Pt remains stable.
--- NOTE | 2019-05-03 19:21 | NUR ---
NURSE NOTES: Received pt from JERRY Higginbotham. Pt is awake and resting at bedside. Iv site intact. Bed locked in lowest position, call light within reach. Will continue with plan of care. Addendum: 05/03/19 at 2305 by ABELARDO NASH RN Received pt from JERRY Saravia.
[2019-05-03 20:00] VITALS: BP 142/88
[2019-05-03] MEDS: QUEtiapine 200mg tab ORAL SCH (21:41)
[2019-05-03] MEDS: ALPRAZolam 0.5mg tab ORAL PRN (21:55)
[2019-05-04] VITALS: BP 157/84
[2019-05-04] MEDS: Albuterol/Ipratropium 3ml neb HHN SCH ×3 (01:18→13:36)
[2019-05-04 04:00] VITALS: BP 151/81
--- NOTE | 2019-05-04 04:05 | NUR ---
HAND-OFF: Report given to JERRY Blanton. Pt is sleeping in bed in no acute distress. Breathing unlabored and even. Endorsed plan of care.
--- NOTE | 2019-05-04 07:11 | NUR ---
HAND-OFF: Report given to JERRY Saravia. Endorsed that pt refused labs.
--- NOTE | 2019-05-04 07:11 | NUR ---
NURSE NOTES: Pt alert and oriented and lying in the bed. No signs of distress noted. IV site intact. Pt refused blood tests scheduled this morning. Made Dr. Garcia aware. call light within easy reach. Bed in lowest position and locked. Noted A-fib on cardiac cath technologist during previous shift. The patient might discharge today after ST and cardio clear the pt. Will continue plan of care.
--- NOTE | 2019-05-04 07:11 | NUR ---
NURSE NOTES: Pt alert and oriented and lying in the bed. No signs of distress noted. IV site intact. Pt refused blood tests scheduled this morning. Made Dr. Garcia aware. call light within easy reach. Bed in lowest position and locked. Noted A-fib on canine enforcement officer during previous shift. The patient might discharge today after ST and cardio clear the pt. Will continue plan of care.
--- NOTE | 2019-05-04 07:44 | Nephrology Progress Note ---
Assessment/Plan Status: stable Assessment/Plan: 1. COPD exacerbation. -nebulizer treatments. weaning steroids - Pulmonary mgmt 2. Chest pain. she has a history of coronary artery disease. - Troponins are negative and unremarkable EKG - nonischemic stress test 3. Hypertension. stable 4. Chronic anxiety followed by Psychiatry, on Xanax 2 mg every evening along with Seroquel 200 mg. 5. DVT prophylaxis. The patient is already on Xarelto. 6. Atrial fibrillation, chronic in nature. The patient on Xarelto and amio DC patient today once cleared by speech and cardiology Subjective Date patient seen: May 04, 2019 Time patient seen: 07:41 ROS Limited/Unobtainable: No Allergies: Coded Allergies: CODEINE (Verified Allergy, Unknown, 09/03/16) MORPHINE (Unverified Allergy, Unknown, 05/01/19) Subjective Patient resting. Sleeping flat and no SOB Objective Last 24 Hour Vital Signs Date Time Temp Pulse Resp B/P (MAP) Pulse Ox O2 Delivery O2 Flow Rate FiO2 05/04/19 04:00 98.0 88 24 151/81 (104) 95 05/04/19 04:00 94 05/04/19 01:28 91 18 96 Nasal Cannula 2.0 28 05/04/19 01:18 87 18 96 Nasal Cannula 2.0 28 05/04/19 00:00 98.0 90 20 157/84 (108) 96 05/04/19 00:00 90 05/03/19 21:00 Nasal Cannula 1.5 05/03/19 20:07 91 18 97 Nasal Cannula 2.0 28 05/03/19 20:00 98.2 88 24 142/88 (106) 96 05/03/19 20:00 88 05/03/19 19:57 88 18 95 Nasal Cannula 2.0 28 05/03/19 19:57 88 18 95 Nasal Cannula 2.0 28 05/03/19 16:00 97.5 85 20 143/69 (93) 96 05/03/19 16:00 87 05/03/19 15:15 90 18 96 Nasal Cannula 2.0 28 05/03/19 12:39 97.3 05/03/19 12:00 97.3 81 18 160/83 (108) 95 05/03/19 12:00 79 05/03/19 11:41 79 18 97 Nasal Cannula 2.0 28 05/03/19 11:31 76 18 96 Nasal Cannula 2.0 28 05/03/19 09:00 Nasal Cannula 1.5 05/03/19 09:00 97.3 87 20 156/91 (112) 96 05/03/19 08:00 76 Intake and Output 05/03/19 05/04/19 19:00 07:00 Intake Total 360 ml Balance 360 ml Intake Oral 360 ml # Voids 3 2 Height (Feet): 5 Height (Inches): 4.00 Weight (Pounds): 260 General Appearance: no apparent distress EENT: normal ENT inspection Neck: normal alignment, supple Cardiovascular: normal rate, regular rhythm Respiratory/Chest: expiratory wheezing Abdomen: non tender, soft Edema: no edema noted Arm (L), no edema noted Arm (R), no edema noted Leg (L), no edema noted Leg (R), no edema noted Pedal (L), no edema noted Pedal (R), no edema noted Generalized Edward Garcia MD May 04, 2019 07:44
[2019-05-04 08:00] VITALS: BP 132/91
--- NOTE | 2019-05-04 09:02 | Cardiology Progress Note ---
Assessment/Plan Status: stable Assessment/Plan Assessment/Plan Assessment/Plan: Assessment: 1. Atrial fibrillation. 2. COPD. 3. Chest pain. 4. Coronary artery disease. 5. Anxiety. 6. Hyperlipidemia. 7. CHF. 8. chest pain PLAN: Continue xarelto amiodarone and metoprolol for AFIB Continue aspirin and pravastatin for CAD Stress test negative Ok to discharge home today Subjective Cardiovascular: Reports: no symptoms Respiratory: Reports: no symptoms Gastrointestinal/Abdominal: Reports: no symptoms Genitourinary: Reports: no symptoms Subjective No acute events, no Chest pain Dobutamine stress test negative for ischemia Objective Last 24 Hour Vital Signs Date Time Temp Pulse Resp B/P (MAP) Pulse Ox O2 Delivery O2 Flow Rate FiO2 05/04/19 08:03 88 18 97 Nasal Cannula 2.0 28 05/04/19 08:00 98.6 88 18 132/91 (105) 98 05/04/19 04:00 98.0 88 24 151/81 (104) 95 05/04/19 04:00 94 05/04/19 01:28 91 18 96 Nasal Cannula 2.0 28 05/04/19 01:18 87 18 96 Nasal Cannula 2.0 28 05/04/19 00:00 98.0 90 20 157/84 (108) 96 05/04/19 00:00 90 05/03/19 21:00 Nasal Cannula 1.5 05/03/19 20:07 91 18 97 Nasal Cannula 2.0 28 05/03/19 20:00 98.2 88 24 142/88 (106) 96 05/03/19 20:00 88 05/03/19 19:57 88 18 95 Nasal Cannula 2.0 28 05/03/19 19:57 88 18 95 Nasal Cannula 2.0 28 05/03/19 16:00 97.5 85 20 143/69 (93) 96 05/03/19 16:00 87 05/03/19 15:15 90 18 96 Nasal Cannula 2.0 28 05/03/19 12:39 97.3 05/03/19 12:00 97.3 81 18 160/83 (108) 95 05/03/19 12:00 79 05/03/19 11:41 79 18 97 Nasal Cannula 2.0 28 05/03/19 11:31 76 18 96 Nasal Cannula 2.0 28 General Appearance: no apparent distress, alert EENT: PERRL/EOMI, normal ENT inspection, TMs normal Neck: non-tender, normal alignment, supple Rhythm: NSR Cardiovascular: normal peripheral pulses, normal rate Respiratory/Chest: chest wall non-tender, lungs clear, normal breath sounds, no respiratory distress, no accessory muscle use Abdomen: normal bowel sounds, non tender, soft, no organomegaly, no mass Extremities: normal range of motion, non-tender, normal inspection, no calf tenderness, no swelling 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
[2019-05-04] MEDS: Docusate 100mg cap ORAL SCH (09:20)
[2019-05-04] MEDS: Xarelto 15mg tab ORAL SCH (09:21)
[2019-05-04] MEDS: Aspirin Baby 81mg ORAL SCH (09:21)
[2019-05-04] MEDS: Metoprolol Succinate XL 50mg tab ORAL SCH (09:22)
[2019-05-04] MEDS: Amiodarone 200mg tab ORAL SCH ×2 (09:22→18:00)
--- NOTE | 2019-05-04 10:01 | NUR ---
NURSE NOTES: Pt picked up by transporter via bed with O2 2LPM via N/C for video swallow test. No signs of distress noted.
--- NOTE | 2019-05-04 10:02 | Pulmonology Progress Note ---
Assessment/Plan Assessment/Plan ASSESSMENT AND PLAN: 1. Chronic obstructive pulmonary disease exacerbation. Agree with nebulizer treatments along with steroids. 2. Chest pain. Troponins are negative and unremarkable EKG 3. Hypertension. 4. Chronic anxiety 5. DVT prophylaxis. The patient is already on Xarelto. 6. Atrial fibrillation, chronic in nature. Continue Xarelto. Subjective Interval Events: None new Constitutional: Reports: no symptoms HEENT: Repors: no symptoms Respiratory: Reports: no symptoms Cardiovascular: Reports: no symptoms Gastrointestinal/Abdominal: Reports: no symptoms Genitourinary: Reports: no symptoms Neurologic: Reports: no symptoms Allergies: Coded Allergies: CODEINE (Verified Allergy, Unknown, 09/03/16) MORPHINE (Unverified Allergy, Unknown, 05/01/19) Objective Last 24 Hour Vital Signs Date Time Temp Pulse Resp B/P (MAP) Pulse Ox O2 Delivery O2 Flow Rate FiO2 05/04/19 09:22 88 132/91 05/04/19 08:13 91 18 98 Nasal Cannula 2.0 28 05/04/19 08:03 88 18 97 Nasal Cannula 2.0 28 05/04/19 08:00 98.6 88 18 132/91 (105) 98 05/04/19 04:00 98.0 88 24 151/81 (104) 95 05/04/19 04:00 94 05/04/19 01:28 91 18 96 Nasal Cannula 2.0 28 05/04/19 01:18 87 18 96 Nasal Cannula 2.0 28 05/04/19 00:00 98.0 90 20 157/84 (108) 96 05/04/19 00:00 90 05/03/19 21:00 Nasal Cannula 1.5 05/03/19 20:07 91 18 97 Nasal Cannula 2.0 28 05/03/19 20:00 98.2 88 24 142/88 (106) 96 05/03/19 20:00 88 05/03/19 19:57 88 18 95 Nasal Cannula 2.0 28 05/03/19 19:57 88 18 95 Nasal Cannula 2.0 28 05/03/19 16:00 97.5 85 20 143/69 (93) 96 05/03/19 16:00 87 05/03/19 15:15 90 18 96 Nasal Cannula 2.0 28 05/03/19 12:39 97.3 05/03/19 12:00 97.3 81 18 160/83 (108) 95 05/03/19 12:00 79 05/03/19 11:41 79 18 97 Nasal Cannula 2.0 28 05/03/19 11:31 76 18 96 Nasal Cannula 2.0 28 Intake and Output 05/03/19 05/04/19 19:00 07:00 Intake Total 360 ml 120 ml Balance 360 ml 120 ml Intake Oral 360 ml 120 ml # Voids 3 2 General Appearance: no acute distress HEENT: normocephalic Respiratory/Chest: chest wall non-tender, decreased breath sounds Cardiovascular: normal peripheral pulses Abdomen: normal bowel sounds Microbiology Date/Time Source Procedure Growth Status 05/01/19 17:10 Blood Blood Culture - Preliminary NO GROWTH AFTER 48 HOURS Resulted 05/01/19 16:55 Blood Blood Culture - Preliminary NO GROWTH AFTER 48 HOURS Resulted Current Medications Medications (Trade) Dose Ordered Sig/Hoa Route PRN Reason Start Time Stop Time Status Last Admin Dose Admin Acetaminophen (Tylenol) 650 mg Q4H PRN ORAL Mild Pain (Pain Scale 1-3) 05/01/19 19:45 05/31/19 19:44 05/03/19 12:09 Albuterol/ Ipratropium (Albuterol/ Ipratropium) 3 ml Q4H PRN HHN Shortness of Breath 05/03/19 11:30 05/08/19 11:29 05/03/19 15:15 Albuterol/ Ipratropium (Albuterol/ Ipratropium) 3 ml Q6HRT HHN 05/02/19 01:00 05/07/19 00:59 05/04/19 08:02 Alprazolam (Xanax) 2 mg QHS PRN ORAL For Anxiety 05/01/19 20:00 05/08/19 19:59 05/03/19 21:55 Amiodarone HCl (Cordarone) 200 mg BID ORAL 05/02/19 09:00 06/01/19 08:59 05/04/19 09:22 Aspirin (ASA) 81 mg DAILY ORAL 05/02/19 09:00 06/01/19 08:59 05/04/19 09:21 Dextrose (Dextrose 50%) 25 ml Q30M PRN IV Hypoglycemia 05/01/19 19:45 05/31/19 19:44 Dextrose (Dextrose 50%) 50 ml Q30M PRN IV Hypoglycemia 05/01/19 19:45 05/31/19 19:44 Docusate Sodium (Colace) 100 mg EVERY 12 HOURS ORAL 05/01/19 21:00 05/31/19 20:59 05/04/19 09:20 Famotidine (Pepcid) 40 mg DAILY ORAL 05/02/19 09:00 06/01/19 08:59 05/04/19 09:22 Gabapentin (Neurontin) 600 mg QHS ORAL 05/01/19 21:00 05/31/19 20:59 05/03/19 21:41 Metoprolol Succinate (Toprol XL) 50 mg DAILY ORAL 05/02/19 09:00 06/01/19 08:59 05/04/19 09:22 Nitroglycerin (Ntg) 0.4 mg Q5M PRN SL Prn Chest Pain 05/01/19 19:45 05/31/19 19:44 Pravastatin Sodium (Pravachol) 40 mg QHS ORAL 05/01/19 21:00 05/31/19 20:59 05/03/19 21:41 Prednisone (predniSONE) 10 mg DAILY ORAL 05/04/19 09:00 06/02/19 08:59 05/04/19 09:21 Quetiapine Fumarate (SEROquel) 200 mg QHS ORAL 05/01/19 21:00 05/31/19 20:59 05/03/19 21:41 Rivaroxaban (Xarelto) 15 mg DAILY ORAL 05/02/19 09:00 06/01/19 08:59 05/04/19 09:21 Huog Ortiz MD May 04, 2019 10:02
--- NOTE | 2019-05-04 11:00 | NUR ---
PT NOTE Attempted to see patient for PT treatment. Patient off floor for video swallow test. Will re-attempt later as schedule permits, Min RN notified.
[2019-05-04 11:57] VITALS: BP 109/65
--- NOTE | 2019-05-04 12:57 | NUR ---
SWALLOW/SPEECH THERAPY NOTE: COMPLETED MOD BARIUM SWALLOW STUDY, SEE FULL REPORT TO FOLLOW IN [facility] ACTIVITY SECTION OR CALL [phone]. ALERT BUT AT TIMES WILL FALL ASLEEP. COUGHS UP PHLEGM AND C/O OF THROAT BEING "ON FIRE" WHEN SHE COUGHS AND SWALLOW (ODYNOPHAGIA). GETS SOB BUT RR ADEQUATE 16 AND ON 1.5 LITERS 02 NC. 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 MILD ESOPHAGEAL DYSPHAGIA NO ASPIRATION BUT HAS HIGH RISK FOR CHRONIC TRACE ASPIRATION WITH ALL CONSISTENCIES (WORSE WITH THICKER CONSISTENCIES AND SOLIDS) DUE TO OROPHARYNGEAL DYSMOTILITY, DELAYED AND WEAK SWALLOW, LATE AND INCOMPLETE CLOSURE OF LARYNGEAL VESTIBULE, AND REDUCED ESOPHAGEAL MOTILITY. THING LIQUIDS TRACE LARYNGEAL PENETRATION NOTED WITH THIN LIQUIDS (TSP, CUP TO ABOVE VOCAL FOLDS WITH EJECTION, AND WITH STRAW SEQUENTIAL TO LEVEL OF VOCAL FOLDS NOT EJECTED AND AUDIBLE DUE TO REDUCED HYOLARYNGEAL EXCURSION, DELAYED SWALLOW,AND REDUCED TONGUE BASE RETRACTION). NECTAR THICK LIQUIDS TRACE LARYNGEAL PENETRATION TO LEVEL OF VOCAL FOLDS WITH EJECTION AND SILENT AFTER THE SWALLOW DUE TO REDUCED HYOLARYNGEAL EXCURSION, BUT HAS ADDITIONAL RISK DUE TO REDUCED TONGUE BASE RETRACTION AND PHARYNGEAL STRIPPING WAVE DYSMOTILITY THAT RESULTS IN RESIDUE AFTER THE SWALLOW ESPECIALLY WITH LARGER AMOUNTS. HONEY THICK LIQUIDS AND PUREED NO APSIRATION BUT HAS TRACE LARYNGEAL PENETRATION TO LEVEL OF VOCAL FOLDS WITH EJECTION AND SILENT AFTER THE SWALLOW DUE TO REDUCED BASE OF TONGUE RETRACTION. ADDITIONAL AND SIGNIFICANT RISK OF ASPIRATION AFTER THE SWALLOW DUE TO OP DYSMOTILITY AND RESIDUE (NEEDS EXTRA SWALLOW AND EXPECTORATES SOME RESIDUE). PUREED TSP NO ASP NOR PENETRATION BUT HAS RISK DUE TO SEVERE OROPHARYNGEAL DYSMOTILITY AND RESIDUE AND NEEDED TSP WATER WAST AND COUGHING OUT MIN PHARYNGEAL RESIDUE TO CLEAR BOLUSES. NO TIME FOR MASTICATED SOLIDS NOR OTHER STRATEGIES. DEFICITS/COMPONENTS NOTED: Oral Motor Decreased oral sensation Decreased lingual ROM Dentition Missing Teeth Oral Impairment Lip Closure Tongue Control Bolus prep/mastication Bolus messina/lingual motion Oral residue Init. pharyngeal swallow Pharyngeal Impairment Soft palate elevation Laryngeal elevation (LE) Ant. hyoid excursion Epiglottic movement Laryngeal vestibule closure Pharyngoesophageal segment Opening Tongue base retraction Pharyngeal residue Decreased pharyngeal sensation (variable) Esophageal Impairment Esophageal Clearance BACKFLOW WITH NECTAR THICK LIQUID TSP AFTER SECOND BENEFITS FROM TSP LEVEL, CHIN NEUTRAL (SHE TENDS TO KEEP HER CHIN UP SO SHE CAN BREATHE), EXTRA HARD SWALLOWS 2-3 (SOME CUED), REST WHEN SOB, COUGH OUT RESIDUE, TSP THIN LIQUID WASH CONSIDER HEAD TURN R OR L AND SUPER SUPRAGLOTTIC SWALLOW IF POSSIBLE SINCE HAS RESP ISSUES HAS C2,C3,C4 MAYBE MORE HYPERTROPHIC SPURS OR ENDPLATE OSTEOPHYTES PER RADIOLOGIST DR ABBOTT THAT DO NOT APPEAR TO BE OBSTRUCTING THE BOLUS FLOW. RECOMMENDATIONS: SINCE PT IS NOT RECEPTIVE TO NONORAL FEEDINGS AND WANTS TO EAT/DRINK FOR QUALITY OF LIFE PURPOSES (TAKES 75-100% OF PUREED AND NECTAR THICK LIQUID DIET), CONSIDER DOWNGRADING TO LIQUIFIED PUREED LIKE NECTAR THICK SOUP CONSISTENCY WITH TSP ONLY AND ADDITIONAL UPDATED AND POSTED ASPIRATION AND REFLUX PRECAUTIONS. CONSIDER GI CONSULT REGARDING ESOPHAGEAL DYSPHAGIA NEEDS REFLUX PRECAUTIONS EDUCATED/TRAINED RN AND PATIENT IN ASP PREC AND SWALLOW STRATEGIES D/W DR FLORENCE AND HE WILL SEND [employer] SINGLE WIRE SAW OPERATOR TO SEE HER FOR DYSPHAGIA MANAGEMENT AND TX Addendum: 05/04/19 at 1314 by CORDELIA ALVARADO SINGLE WIRE SAW OPERATOR CONSIDER WORKUP FOR SLEEP APNEA RESP TREATMENT DISCHARGE SWALLOW/SPEECH THERAPY NOTE: PATIENT SEEN FOR DYSPHAGIA, SEE SWALLOW EVAL AND MOD BARIUM SWALLOW STUDY (FULL REPORT TO FOLLOW) GOALS MET FOR INTAKE AND FOR STAFF/PT EDUCATED IN POSTED ASPIRATION PRECAUTIONS PLAN: F/UP WITH HOME CARE SINGLE WIRE SAW OPERATOR FOR SKILLED DYSPHAGIA MANAGEMENT AND TX
--- NOTE | 2019-05-04 13:35 | NUR ---
CASE MANAGEMENT:REVIEW 05/04/19 SI: COPD EXACERBATION. CHEST PAIN 97.6 76 20 109/65 98% ON 1.5L/NC IS: PREDNISONE PO QD ASA PO QD PEPCID PO QD AMIODARONE PO BID TOPROL XL PO QD XARELTO PO QD DUONEB HHN Q6HRS RTC : TELEMETRY STATUS DCP: PATIENT IS FROM HOME PLAN: DISCHARGE HOME WITH HOME HEALTH
--- NOTE | 2019-05-04 13:49 | Diagnostic Imaging Report ---
Indication: chest pain Technique: The study was conducted under the supervision of a environmental engineering professor. lexiscan (regadenoson) infusion over 10 seconds followed by intravenous administration of 30.9 mCi of technetium 99m Myoview was performed. Three plane SPECT imaging of the heart was then performed. A resting study was performed as part of the one-day protocol with 11 mCi of technetium 99m myoview injected intravenously at that time. Three plane SPECT imaging of the heart was obtained. Comparison: None Clinical data: 1. Clinical response: Non ischemic 2. Electrocardiographic response: Non ischemic Findings: The myocardial perfusion scan demonstrates no definite fixed or reversible perfusion defects. Left ventricular ejection fraction estimated at 66%. IMPRESSION: No evidence of myocardial ischemia
--- NOTE | 2019-05-04 13:58 | NUR ---
DISCHARGE PLANNING DISCHARGE ORDER NOTED PATIENT HAS BEEN REFERRED TO COUNT INCLUDES THE [facility] T:[phone]
--- NOTE | 2019-05-04 14:20 | NUR ---
NURSE NOTES: Spoke to Zac, the son of the patient and made him aware of patient's discharge home.
--- NOTE | 2019-05-04 14:47 | NUR ---
RD ASSESSMENT & RECOMMENDATIONS SEE CARE ACTIVITY FOR COMPLETE ASSESSMENT DAILY ESTIMATED NEEDS: Needs based on Pulmonary 69kg adj 20-25 kcals/kg 9577-9035 total kcals 1-1.5 g protein/kg 69-104 g total protein 25-30 mL/kg 6117-1022 total fluid mLs NUTRITION DIAGNOSIS: 1) Swallowing difficulty r/t dysphagia as evidenced by ELECTROPLATER APPRENTICE eval, VSS, recs for puree texture w/ NTL. 2) Altered nutrition related lab values r/t hyperglycemia, h/o COPD as evidenced by BG 202, pt on prednisone CURRENT DIET: Low Na now puree w/ NTL PO DIET RECOMMENDATIONS--->>> LOW NA/ CCHO LOW DIET / texture per ELECTROPLATER APPRENTICE ADDITIONAL RECOMMENDATIONS: 1) Monitor for continued good po intake on puree diet 2) Rec NISS, bg is elev (pt on prednisone) 3) Monitor need for snacks/ supplements 4) Calibrated bed scale wt as able EMR WT: 260# vs BEDSCALE WT: 249#
--- NOTE | 2019-05-04 15:08 | NUR ---
INSURANCE UPDATED CLINICALS and REVIEW HAVE BEEN FAXED PLEASE FAX THE REVIEW AND CLINICAL TO: [facility] REPORTED TO: L[facility]ONT :[phone] AUTH# [id number] FAX ALL CLINICALS TO: [phone] Addendum: 05/04/19 at 1509 by ROHAN BLAIR CM WRONG INFORMATION DISREGARD
[2019-05-04 16:00] VITALS: BP 135/82
[2019-05-04] MEDS ORDERED: DUONEB 0.5-3(2.53 ML HHN ×2 (16:07→16:09)
--- NOTE | 2019-05-04 16:15 | NUR ---
*-* INSURANCE *-* ALL CLINICALS AND REVIEWS HAVE BEEN FAXED TO: [facility] REPORTED TO: LAMONT :[phone] AUTH# [id number] FAX ALL CLINICALS TO: [phone]
[2019-05-04] MEDS: Albuterol/Ipratropium 3ml neb HHN PRN (18:07)
--- NOTE | 2019-05-04 18:48 | NUR ---
Discharge: Patient is being discharged from medical care. Awake, alert and oriented x3. After care instructions, including referral to community resources were given. Patient verbalized understanding of After care instructions; at this time patient does not request medications, equipment or placement. Patient was refused to sign the discharge consent due to general weakness. Report given to ambulance personnels. All medical devices such as installer inspector final, IV and ID band were removed. Patient picked up by [facility] ambulance personnels via gurney with all personal belongings.
--- NOTE | 2019-05-05 09:19 | Discharge Summary ---
Discharge Summary Discharge Summary _ DATE OF ADMISSION: 05/01/2019 DATE OF DISCHARGE: 05/04/2019 DISCHARGED BY: Dr. Edward Garcia CONSULTANTS: Dr. Vahe Ortiz BRIEF HOSPITAL COURSE: Patient is a 78-year-old female, who was brought in by EMS for complaints of shortness of breath and wheezing along with chest pain. Patient is a known COPD and atrial fibrillation with multiple admissions in the past for similar complaints. The patient quit smoking approximately 4 years ago. She stated despite using her home breathing treatments, she developed progressive shortness of breath and was wheezing. Patient was anxious and takes Xanax on regular basis. On evaluation at ED, blood pressure was 156/75, pulse rate 84, 95% saturation on room air. Blood work did not show any leukocytosis. Hemoglobin and hematocrit were stable. Electrolytes were normal. Troponin negative. proBNP 1638. Urinalysis with +1 leukocyte esterase, 0-2 urine RBC, 0-2 urine WBC, negative nitrite, +1 blood, negative glucose, +1 protein. Urine toxicology screen was negative. EKG showed atrial fib/flutter with no acute changes. Chest x-ray showed cardiomegaly with evidence of mild interstitial edema. She was given gentle IV hydration. She was given nebulizer treatments. Planes of bilateral lower extremity pain. She was noted to have redness and swelling. Venous duplex of the lower extremity was negative for DVT. She was then admitted for evaluation of COPD exacerbation and chest pain. She was given nebulizer treatments. IV steroids initiated. Cardiac enzymes were monitored. She was continued on Xanax and Seroquel. She was continued on Xarelto for DVT prophylaxis and atrial fibrillation. She was continued on metoprolol and amiodarone for A. fib. She was given aspirin and pravastatin for coronary artery disease. Echocardiogram done showed EF 60%. Cardiac enzymes were negative. She underwent Lexiscan stress test. There was no definite fixed or reversible perfusion defects. No evidence of myocardial ischemia. Left ventricular ejection fraction estimated at 66%. She was weaned off IV steroids. She was given PT and OT. She was eventually discharged home. FINAL DIAGNOSES: Acute COPD exacerbation Hypertension, stable Chest pain/coronary artery disease Chronic anxiety Atrial fibrillation on Xarelto Hyperlipidemia DISPOSITION: Patient was discharged home with home health. DISCHARGE MEDICATIONS: Refer to Discharge Medication List. DISCHARGE INSTRUCTIONS: Follow-up in a week. I have been assigned to complete a discharge summary on this account, I was not involved with the patient's management.--NORMAN Smith Jacqueline Robles NP May 05, 2019 09:19
--- NOTE | 2019-05-05 09:25 | NUR ---
*-* INSURANCE *-* DISCHARGE SUMMARY HAS BEEN FAXED TO: [facility] REPORTED TO: LAMONT :[phone] AUTH# [id number] FAX ALL CLINICALS TO: [phone]
--- NOTE | 2019-05-05 15:17 | Diagnostic Imaging Report ---
Indications: Reason For Exam: DYSPHAGIA Technique: Fluoroscopic supervision provided to speech pathology by Dr. Osorio Patient ingested multiple substances under the supervision of speech pathology. Video fluoroscopic recording performed. Total fluoroscopy time 302 seconds. Total dose area product 0.64366 mGycm2 Total number of images-12 Comparison: none Findings: There is early pooling of thin liquid barium in the vallecula and piriform sinuses. No definite aspiration or penetration. Other substances demonstrate early pooling, no evidence of aspiration or penetration. There is delayed pooling of barium puree, incompletely cleared by repeated swallowing Impression: Negative for evidence of aspiration or penetration Please refer to speech pathology report for more detailed analysis
== END 2019-05-04 18:50 | disposition home health service (06) | DRG 140 ==
LOC: EDBD 16:51 → EMR 17:21 → 2E 18:05 → EDBEDREQ 20:32 → 2E 05-02 23:10
DX: J44.1 Chronic obstructive pulmonary disease with (acute) exacerbation (principal); I48.2 Chronic atrial fibrillation; I11.0 Hypertensive heart disease with heart failure; I50.9 Heart failure, unspecified; R07.9 Chest pain, unspecified; I25.10 Atherosclerotic heart disease of native coronary artery without angina pectoris; Z87.891 Personal history of nicotine dependence; E78.5 Hyperlipidemia, unspecified; Z88.6 Allergy status to analgesic agent; Z79.01 Long term (current) use of anticoagulants
CPT/HCPCS: 36415; 71045; 74230; 78452; 80048; 80053; 80307; 80329; 81003; 82550; 83605; 83690; 83735; 83880; 84484; 85007; 85025; 85610; 85730; 87040; 93005; 93017; 93306; 93970; 94640; 94664; 96374; 96375; 99285; J2405; J7620

== ENCOUNTER 2020-03-18 19:33 | Inpatient (IN) | payer MEDICAID, MEDICARE ==
[~2020-03-18] VITALS: Ht 152.4 cm; Wt 97.1 kg
[~2020-03-18 19:33] MED LIST changes: +DUONEB 0.5-3(2.53 ML HHN
[2020-03-18] MEDS ORDERED: Naloxone 1mg/ml 2ml IVP ONE (20:00)
[2020-03-18] MEDS ORDERED: Cefepime HCl 2 GM in NS 110 ML IV ONE (20:00)
--- NOTE | 2020-03-18 20:03 | NUR ---
ED Nurse Note: pt VIKY WHITE RA 67 from home for OD, per EMS, pt took an unk amount of unk meds, pt has pinpoint pupils on exam but able to follow commands, VSS pt is noted to not be ambulatory
[2020-03-18 20:23] LABS: BASOPHILS % (AUTO) 1.4 % (0.0-2.0); EOSINOPHILS % (AUTO) 0.5 % (0.0-3.0); HEMOGLOBIN 12.3 G/DL (12.0-16.0); LYMPHOCYTES % (AUTO) 31.3 % (20.0-45.0); MEAN CORPUSCULAR VOLUME 76 FL (80-99); NEUTROPHILS % (AUTO) 59.8 % (45.0-75.0); PLATELET COUNT 233 K/UL (150-450); RED BLOOD COUNT 5.52 M/UL (4.20-5.40); RED CELL DISTRIBUTION WIDTH 17.4 % (11.6-14.8); WHITE BLOOD COUNT 8.1 K/UL (4.8-10.8)
--- NOTE | 2020-03-18 20:28 | NUR ---
ED Nurse Note: pt taken to CT, she is arousable to pain and when asked if she knows where she is,, she is able to shake her head "no" but speaks nonsensically and began dancing during questioning. her pupils are still pinpoint, will cont to monitor
--- NOTE | 2020-03-18 20:28 | NUR ---
ED Nurse Note: when asked if pt knows what she took, she responds with a "no" head shake, but nods her head "yes" when asked if she took some pills
[2020-03-18 20:32] LABS: APPEARANCE,URINE CLEAR; BILIRUBIN, URINE NEGATIVE (NEGATIVE); COLOR,URINE PALE YELLOW; GLUCOSE, URINE (UA) NEGATIVE (NEGATIVE); KETONES,URINE NEGATIVE (NEGATIVE); LEUKOCYTE ESTERASE ,URINE NEGATIVE (NEGATIVE); NITRITE,URINE NEGATIVE (NEGATIVE); PH,URINE 7 (4.5-8.0); PROTEIN,URINE NEGATIVE (NEGATIVE); UROBILINOGEN,URINE 1 MG/DL (0.0-1.0)
[2020-03-18 20:40] VITALS: BP 123/73
--- NOTE | 2020-03-18 20:44 | Diagnostic Imaging Report ---
EXAM: CT Head Without Intravenous Contrast CLINICAL HISTORY: AMS TECHNIQUE: Axial computed tomography images of the head/brain without intravenous contrast. CTDI is 3 mGy and DLP is 1045 mGy-cm. One or more of the following dose reduction techniques were used: automated exposure control, adjustment of the mA and/or kV according to patient size, use of iterative reconstruction technique. COMPARISON: No relevant prior studies available. FINDINGS: Brain: Parenchymal volume loss. Nonspecific white matter hypoattenuation likely secondary to chronic microvascular ischemia. Cerebrovascular ASVD. No hemorrhage. Ventricles: Unremarkable. No ventriculomegaly. Bones/joints: Unremarkable. No acute fracture. Soft tissues: Unremarkable. Sinuses: Unremarkable as visualized. No acute sinusitis. Mastoid air cells: Unremarkable as visualized. No mastoid effusion. IMPRESSION: 1. No acute intracranial abnormality. 2. Mild chronic senescent findings above. 3. Otherwise unremarkable study.
[2020-03-18 21:22] LABS: ANION GAP 10 mmol/L (5-15); BLOOD UREA NITROGEN 14 mg/dL (7-18); CALCIUM 8.3 MG/DL (8.5-10.1); CARBON DIOXIDE 29 MMOL/L (21-32); CHLORIDE 103 MMOL/L (98-107); CREATININE 1.1 MG/DL (0.55-1.30); POTASSIUM 4.3 MMOL/L (3.5-5.1); SODIUM 142 MMOL/L (136-145)
[2020-03-18 21:35] LABS: ALANINE AMINOTRANSFERASE 20 U/L (12-78); ALBUMIN/GLOBULIN RATIO 0.8 (1.0-2.7); ALKALINE PHOSPHATASE 84 U/L (46-116); ASPARTATE AMINO TRANSFERASE 31 U/L (15-37); BILIRUBIN,TOTAL 0.6 MG/DL (0.2-1.0); CKMB 1.5 NG/ML (0.0-3.6); CREATINE KINASE 54 U/L (26-308); PHOSPHORUS 4.5 MG/DL (2.5-4.9)
[2020-03-18 23:30] VITALS: BP 127/67
--- NOTE | 2020-03-19 00:08 | NUR ---
ED Nurse Note: report given to JERRY Desouza
[2020-03-19 00:20] VITALS: BP 149/70
--- NOTE | 2020-03-19 00:25 | NUR ---
NURSE NOTES: Received report from JERRY Crane. Patient transported from ER to room 220-2 via gurney. Patient assisted to bed, awake, alert and oriented x 2. Oriented to room and telemetry unit. monitor car operator is on shows atrial fibrillation with no chest pain nor any discomfort reported. IV site is on right wrist g-22 saline lock that is intact and patent. Patient is incontinent x 2, pure wick is on. Safety measures are in placed, bed in lowest and locked position, bed alarm is on. Call light and bedside table within reach. Will call MD for admission orders.
--- NOTE | 2020-03-19 01:00 | NUR ---
NURSE NOTES: Called Dr. Jim to get admission orders, awaiting for call back.
--- NOTE | 2020-03-19 02:00 | NUR ---
NURSE NOTES: Called Dr. Jmi again to get an admission orders and spoke to the pilot plant operator helper "Jennifer" that Dr. Jim is not picking up his phone and she will send a text message. Will call again after an hour.
[2020-03-19 04:00] VITALS: BP 145/73
--- NOTE | 2020-03-19 05:50 | NUR ---
NURSE NOTES: Called again Dr. Jim but still wasn't able to get an admission order. RN spoke with "Erika", she's the operation who answered the call.
--- NOTE | 2020-03-19 06:10 | NUR ---
NURSE NOTES: Received an admission order from Dr. Jim, will carry out. Patient is in stable condition.
[2020-03-19] MEDS ORDERED: Acetaminophen 650mg/20.3ml ORAL PRN (06:30)
[2020-03-19] MEDS ORDERED: Albuterol/Ipratropium 3ml neb HHN PRN (06:30)
[2020-03-19] MEDS ORDERED: Nitroglycerin Subl 0.4mg tab SL PRN (06:30)
--- NOTE | 2020-03-19 07:37 | NUR ---
NURSE NOTES: Received report from JERRY Crews. Pt awake and alert. Sitting up in bed very sleepy. Breakfast tray at bedside. Right wrist SL. Purewick in place draining our yellow urine. Bed in low position, side rails up x2 and call ligth within reach. Will continue to monitor.
--- NOTE | 2020-03-19 07:42 | NUR ---
HAND-OFF: Report given to Carla/JERRY Beaver. Patient is awake, eating breakfast in stable condition, no complaints made at this time. RN made aware of code status. Plan of care endorsed.
[2020-03-19 08:00] VITALS: BP 148/77
--- NOTE | 2020-03-19 08:22 | NUR ---
NURSE NOTES: Notified Dr. Jim about heart rate going down to 30's and 40's with lowest of 34. Awaiting call back. Will continue to monitor
--- NOTE | 2020-03-19 08:42 | NUR ---
*-* INSURANCE *-* [facility]: DARYL REF [id number] P: [phone] F: [phone]
[2020-03-19] MEDS ORDERED: Amiodarone 200mg tab ORAL SCH (09:00)
[2020-03-19] MEDS ORDERED: Metoprolol Succinate XL 50mg tab ORAL SCH (09:00)
--- NOTE | 2020-03-19 09:06 | Diagnostic Imaging Report ---
Procedure: XRAY Chest 1v Reason for study: Shortness of breath. Comparison films: None. FINDINGS: A single one view chest is obtained. Prominent vascularity unchanged. The lung cid are clear bilaterally. Cardiomegaly and tortuous aorta is stable. CP angles are sharp. The bony thorax appear unremarkable. IMPRESSION: NO SIGNIFICANT CHANGE COMPARED TO PREVIOUS EXAM.
--- NOTE | 2020-03-19 09:54 | NUR ---
NURSE NOTES: Informed Dr. Jim about the pt going deysi. He ordered consult Dr. Wu. Dr. De Leon notified and he ordered stat EKG and 2Decho. Will continue with plan of care.
[2020-03-19 12:00] VITALS: BP 152/79
--- NOTE | 2020-03-19 12:39 | Cardiac Electrophysiology PN ---
Subjective Subjective [id number] Objective Last 24 Hour Vital Signs Date Time Temp Pulse Resp B/P (MAP) Pulse Ox O2 Delivery O2 Flow Rate FiO2 03/19/20 12:00 97.1 96 18 152/79 (103) 93 03/19/20 09:00 Room Air 03/19/20 08:00 97.2 99 18 148/77 (100) 95 03/19/20 04:00 97.9 77 21 145/73 (97) 95 03/19/20 04:00 73 03/19/20 01:35 Room Air 03/19/20 00:41 77 03/19/20 00:20 98.1 79 22 149/70 (96) 97 03/19/20 00:14 97.3 84 12 123/73 98 Room Air 03/18/20 23:30 97.3 89 15 127/67 99 Room Air 03/18/20 20:40 84 12 123/73 98 Room Air 03/18/20 20:40 83 12 Room Air 03/18/20 19:34 97.3 83 12 123/73 (90) 98 Room Air Intake and Output 03/18/20 03/19/20 19:00 07:00 Intake Total 0 ml Balance 0 ml Intake Oral 0 ml Laboratory Tests Test 03/18/20 20:00 03/18/20 20:15 03/18/20 20:23 03/18/20 20:56 White Blood Count 8.1 K/UL (4.8-10.8) Red Blood Count 5.52 M/UL (4.20-5.40) H Hemoglobin 12.3 G/DL (12.0-16.0) Hematocrit 42.0 % (37.0-47.0) Mean Corpuscular Volume 76 FL (80-99) L Mean Corpuscular Hemoglobin 22.3 PG (27.0-31.0) L Mean Corpuscular Hemoglobin Concent 29.3 G/DL (32.0-36.0) L Red Cell Distribution Width 17.4 % (11.6-14.8) H Platelet Count 233 K/UL (150-450) Mean Platelet Volume 8.4 FL (6.5-10.1) Neutrophils (%) (Auto) 59.8 % (45.0-75.0) Lymphocytes (%) (Auto) 31.3 % (20.0-45.0) Monocytes (%) (Auto) 7.0 % (1.0-10.0) Eosinophils (%) (Auto) 0.5 % (0.0-3.0) Basophils (%) (Auto) 1.4 % (0.0-2.0) Lactic Acid Level 1.20 mmol/L (0.4-2.0) Urine Color Pale yellow Urine Appearance Clear Urine pH 7 (4.5-8.0) Urine Specific [place] 1.005 (1.005-1.035) Urine Protein Negative (NEGATIVE) Urine Glucose (UA) Negative (NEGATIVE) Urine Ketones Negative (NEGATIVE) Urine Blood Negative (NEGATIVE) Urine Nitrite Negative (NEGATIVE) Urine Bilirubin Negative (NEGATIVE) Urine Urobilinogen 1 MG/DL (0.0-1.0) H Urine Leukocyte Esterase Negative (NEGATIVE) Urine Opiates Screen Negative (NEGATIVE) Urine Barbiturates Screen Negative (NEGATIVE) Phencyclidine (PCP) Screen Negative (NEGATIVE) Urine Amphetamines Screen Positive (NEGATIVE) H Urine Benzodiazepines Screen Negative (NEGATIVE) Urine Cocaine Screen Negative (NEGATIVE) Urine Marijuana (THC) Screen Negative (NEGATIVE) Sodium Level 142 MMOL/L (136-145) Potassium Level 4.3 MMOL/L (3.5-5.1) Chloride Level 103 MMOL/L (98-107) Carbon Dioxide Level 29 MMOL/L (21-32) Anion Gap 10 mmol/L (5-15) Blood Urea Nitrogen 14 mg/dL (7-18) Creatinine 1.1 MG/DL (0.55-1.30) Estimat Glomerular Filtration Rate 47.8 mL/min (>60) Glucose Level 87 MG/DL (74-106) Calcium Level 8.3 MG/DL (8.5-10.1) L Phosphorus Level 4.5 MG/DL (2.5-4.9) Magnesium Level 2.2 MG/DL (1.8-2.4) Total Bilirubin 0.6 MG/DL (0.2-1.0) Aspartate Amino Transf (AST/SGOT) 31 U/L (15-37) Alanine Aminotransferase (ALT/SGPT) 20 U/L (12-78) Alkaline Phosphatase 84 U/L (46-116) Total Creatine Kinase 54 U/L (26-308) Creatine Kinase MB 1.5 NG/ML (0.0-3.6) Creatine Kinase MB Relative Index 2.7 Troponin I 0.011 ng/mL (0.000-0.056) Total Protein 6.8 G/DL (6.4-8.2) Albumin 3.0 G/DL (3.4-5.0) L Globulin 3.8 g/dL Albumin/Globulin Ratio 0.8 (1.0-2.7) L Test 03/18/20 21:39 Arterial Blood pH 7.405 (7.350-7.450) Arterial Blood Partial Pressure CO2 39.6 mmHg (35.0-45.0) Arterial Blood Partial Pressure O2 89.7 mmHg (75.0-100.0) Arterial Blood HCO3 24.3 mmol/L (22.0-26.0) Arterial Blood Oxygen Saturation 96.4 % (95-100) Arterial Blood Base Excess -0.3 (-2-2) Jam Test Positive Gregory Wu MD Mar 19, 2020 12:39
[2020-03-19 16:00] VITALS: BP 166/65
--- NOTE | 2020-03-19 16:07 | NUR ---
CORRESPONDENCE RENEW CLERK NOTE SW received notification that pt may have social worker concern. SW attempted to meet w/ pt but pt was sleeping. SW will attempt on the next day.
--- NOTE | 2020-03-19 16:10 | NUR ---
CASE MANAGEMENT:REVIEW 79 YR OLD FEMALE BIBA FROM HOME CC; FOUND UNRESPONSIVE W/PINPOINT PUPILS PMH: SUBSTANCE ABUSE SI: AMS 97.4 83 12 123/73 98% ON RA URINE(+) AMPHETAMINES CA-8.3 IS: IV NARCAN X1 STAT 1L NS BOLUS IV CEFEPIME IV FLAGYL : TO TELEMETRY UNIT DCP: FROM HOME
[2020-03-19] MEDS ORDERED: Xarelto 15mg tab ORAL SCH (16:30)
[2020-03-19] MEDS: Xarelto 10mg tab ORAL SCH (17:50)
--- NOTE | 2020-03-19 19:04 | Emergency Room Report ---
History of Present Illness General Chief Complaint: Substance Abuse Source: Patient Present Illness HPI Patient is an 79-year-old female brought in by ambulance after increased altered mental status. Possible overdose. Patient had been given Narcan prior to arrival. She was noted to be somewhat lethargic. Patient was noted to have diminished level of consciousness. History is markedly limited by patient's mental status. Allergies: Coded Allergies: CODEINE (Verified Allergy, Unknown, 09/03/16) MORPHINE (Unverified Allergy, Unknown, 05/01/19) COVID-19 Screening Contact w/high risk pt: No Recent Travel to affected area: No Experienced COVID-19 symptoms?: No COVID-19 Testing performed SHIRT MAKER: No Patient History Past Medical History: see triage record Now: No Reviewed Nursing Documentation: PMH: Agreed; PSxH: Agreed Nursing Documentation-PMH Past Medical History: No History, Except For Hx Cardiac Problems: Yes - CHF, A Fib Hx Hypertension: Yes Hx Asthma: Yes Hx COPD: Yes Hx Cancer: No Hx Gastrointestinal Problems: Yes Hx Neurological Problems: No Review of Systems All Other Systems: limited - Limited by mental status. Physical Exam Vital Signs Date Time Temp Pulse Resp B/P (MAP) Pulse Ox O2 Delivery O2 Flow Rate FiO2 03/18/20 19:34 97.3 83 12 123/73 (90) 98 Room Air General Appearance: alert, obese, Chronically Ill Neck: full range of motion, supple Respiratory: lungs clear Cardiovascular #1: normal inspection Gastrointestinal: normal inspection, soft Neurologic: other - Somnolent, pupils equal and reactive. Psychiatric: normal inspection Medical Decision Making Diagnostic Impression: Primary Impression: Altered mental status ER Course Patient presented for altered mental status. Differential diagnosis included was not limited to CVA, overdose, encephalopathy, hypoglycemic episode, hypercapnia among others. Because of complexity of patient's case laboratory tests and imaging studies were ordered. CT imaging did not show any evidence of acute CVA. See radiology report for full details. Patient was given Narcan in the emergency department without any change in mental status. She started on IV fluids. Arterial blood gas showed no evidence of CO2 retention. Urine drug screen did not show any evidence of opiates. Patient was noted to have some improvement in mental status over time. Dr. Hayder Jim was contacted for inpatient management due to panel physician. Labs Test 03/18/20 20:00 03/18/20 20:15 03/18/20 20:23 03/18/20 20:56 White Blood Count 8.1 K/UL (4.8-10.8) Red Blood Count 5.52 M/UL (4.20-5.40) Hemoglobin 12.3 G/DL (12.0-16.0) Hematocrit 42.0 % (37.0-47.0) Mean Corpuscular Volume 76 FL (80-99) Mean Corpuscular Hemoglobin 22.3 PG (27.0-31.0) Mean Corpuscular Hemoglobin Concent 29.3 G/DL (32.0-36.0) Red Cell Distribution Width 17.4 % (11.6-14.8) Platelet Count 233 K/UL (150-450) Mean Platelet Volume 8.4 FL (6.5-10.1) Neutrophils (%) (Auto) 59.8 % (45.0-75.0) Lymphocytes (%) (Auto) 31.3 % (20.0-45.0) Monocytes (%) (Auto) 7.0 % (1.0-10.0) Eosinophils (%) (Auto) 0.5 % (0.0-3.0) Basophils (%) (Auto) 1.4 % (0.0-2.0) Lactic Acid Level 1.20 mmol/L (0.4-2.0) Urine Color Pale yellow Urine Appearance Clear Urine pH 7 (4.5-8.0) Urine Specific [place] 1.005 (1.005-1.035) Urine Protein Negative (NEGATIVE) Urine Glucose (UA) Negative (NEGATIVE) Urine Ketones Negative (NEGATIVE) Urine Blood Negative (NEGATIVE) Urine Nitrite Negative (NEGATIVE) Urine Bilirubin Negative (NEGATIVE) Urine Urobilinogen 1 MG/DL (0.0-1.0) Urine Leukocyte Esterase Negative (NEGATIVE) Urine Opiates Screen Negative (NEGATIVE) Urine Barbiturates Screen Negative (NEGATIVE) Phencyclidine (PCP) Screen Negative (NEGATIVE) Urine Amphetamines Screen Positive (NEGATIVE) Urine Benzodiazepines Screen Negative (NEGATIVE) Urine Cocaine Screen Negative (NEGATIVE) Urine Marijuana (THC) Screen Negative (NEGATIVE) Sodium Level 142 MMOL/L (136-145) Potassium Level 4.3 MMOL/L (3.5-5.1) Chloride Level 103 MMOL/L (98-107) Carbon Dioxide Level 29 MMOL/L (21-32) Anion Gap 10 mmol/L (5-15) Blood Urea Nitrogen 14 mg/dL (7-18) Creatinine 1.1 MG/DL (0.55-1.30) Estimat Glomerular Filtration Rate 47.8 mL/min (>60) Glucose Level 87 MG/DL (74-106) Calcium Level 8.3 MG/DL (8.5-10.1) Phosphorus Level 4.5 MG/DL (2.5-4.9) Magnesium Level 2.2 MG/DL (1.8-2.4) Total Bilirubin 0.6 MG/DL (0.2-1.0) Aspartate Amino Transf (AST/SGOT) 31 U/L (15-37) Alanine Aminotransferase (ALT/SGPT) 20 U/L (12-78) Alkaline Phosphatase 84 U/L (46-116) Total Creatine Kinase 54 U/L (26-308) Creatine Kinase MB 1.5 NG/ML (0.0-3.6) Creatine Kinase MB Relative Index 2.7 Troponin I 0.011 ng/mL (0.000-0.056) Total Protein 6.8 G/DL (6.4-8.2) Albumin 3.0 G/DL (3.4-5.0) Globulin 3.8 g/dL Albumin/Globulin Ratio 0.8 (1.0-2.7) Test 03/18/20 21:39 Arterial Blood pH 7.405 (7.350-7.450) Arterial Blood Partial Pressure CO2 39.6 mmHg (35.0-45.0) Arterial Blood Partial Pressure O2 89.7 mmHg (75.0-100.0) Arterial Blood HCO3 24.3 mmol/L (22.0-26.0) Arterial Blood Oxygen Saturation 96.4 % (95-100) Arterial Blood Base Excess -0.3 (-2-2) Jam Test Positive Last Vital Signs Date Time Temp Pulse Resp B/P (MAP) Pulse Ox O2 Delivery O2 Flow Rate FiO2 03/19/20 16:00 97.7 98 18 166/65 (98) 96 03/19/20 09:00 Room Air Status: unchanged Disposition: ADMITTED INPATIENT Condition: Stable Referrals: NOT CHOSEN IPA/,REFERRING (PCP) Andrés Vance MD Mar 19, 2020 19:04
--- NOTE | 2020-03-19 19:15 | History and Physical Report ---
DATE OF ADMISSION: 03/18/2020 HISTORY OF PRESENT ILLNESS: This is an 79-year-old female who came to the emergency room and generalized weakness, tired, fatigue, and the patient was also having cough and abdominal pain, rule out COVID. PAST MEDICAL HISTORY: Significant for colonic polyps, colonoscopy, atrial fibrillator, and drug overdose. MEDICATIONS: She is taking Tylenol as needed, Lasix, gabapentin, ibuprofen, Remeron, metoprolol, nitroglycerin, pravastatin, and Xarelto. ALLERGIES: The patient is allergic to codeine and morphine. FAMILY HISTORY: The patient claims she lives at home. PHYSICAL EXAMINATION: GENERAL: This is an elderly obese female in the bed. VITAL SIGNS: Blood pressure 148/77, pulse 99, respirations 18, and temperature 97.2. HEENT: NAD. CHEST: Bilateral decreased breath sounds. Scattered crackles. CARDIOVASCULAR: Regular rhythm. ABDOMEN: Soft. EXTREMITIES: No edema. GENITOURINARY: Deferred. LABORATORY DATA: White counts are 8.1, hemoglobin 12, hematocrit 42, and platelets are 233. Chemistry, sodium 142, potassium 4.3, BUN 14, creatinine 1.1, and glucose is 87. Troponins are 0.11. The patient has ABG done in the ER showing pH 7.40, pCO2 39, and oxygen 89. Urine is negative. Toxicology screen is positive for amphetamines. ASSESSMENT: 1. Chest pain. 2. Short of breath. 3. Substance abuse. PLAN: The patient is admitted on telebed. Discontinue gabapentin. Continue pravastatin and amiodarone. Consider psych consult and PT and OT. The patient is not sure full code DNR. Hayder Jim M.D. DR: Luke JOB#: [id number] CC:
--- NOTE | 2020-03-19 19:30 | NUR ---
NURSE NOTES: Received report from JERRY Beaver. Patient is awake, alert and oriented x 2. On regular, soft easy chew, instructed and amenable. school lunch monitor is on shows atrial fibrillation with no chest pain nor any discomfort reported. IV site is on right wrist g-22 saline lock that is intact and patent. Patient is incontinent x 2, pure wick is on. Safety measures are in placed, bed in lowest and locked position, bed alarm is on. Call light and bedside table within reach. Will continue plan of care.
--- NOTE | 2020-03-19 19:30 | NUR ---
HAND-OFF: Report given to Eleonora Syed RN. Patient stable. $230 dollars taken to safe. Endorsed plan of care.
[2020-03-19 20:00] VITALS: BP 166/86
--- NOTE | 2020-03-19 21:45 | Consultation ---
DATE OF CONSULTATION: 03/19/2020 CARDIOLOGY CONSULTATION CONSULTING PHYSICIAN: Gregory Wu MD. REFERRING PHYSICIAN: Amos Jim MD. REASON FOR CONSULTATION: Bradycardia, heart rate in the 30s as well as atrial fibrillation. HISTORY OF PRESENT ILLNESS: Patient is an 79-year-old lady who was brought in for from home. Patient was found unresponsive and pinpoint pupil. she has history of substance abuse. Patient also was noted to be in atrial fibrillation. Patient had episodes of bradycardia with heart rate in the 30s and Cardiology consultation was obtained for further evaluation and management. REVIEW OF SYSTEMS: Negative other what was mentioned in the history of present illness. PAST MEDICAL HISTORY: 1. Hypertension. 2. Atrial fibrillation. 3. Congestive heart failure. 4. Asthma. 5. COPD. 6. Obesity. FAMILY HISTORY: Noncontributory. SOCIAL HISTORY: She lives at home. Does not smoke or drink alcohol. PHYSICAL EXAMINATION: VITAL SIGNS: Show blood pressure of 110/70, pulse is 90, respirations 18, she is afebrile. HEAD AND NECK: Shows no JVD. LUNGS: Clear. CARDIOVASCULAR: Shows regular S1 and S2 with no gallop. ABDOMEN: Soft. EXTREMITIES: No pitting edema. LABORATORY AND DIAGNOSTIC DATA: Her labs show white count of 8, hemoglobin 12, hematocrit 42, and platelet count 233. Sodium 142, potassium 4.3, BUN of 14, creatinine 1.5, glucose of 87. First troponin is negative. Her urine toxicology is positive for amphetamine. ASSESSMENT AND PLAN: 1. Atrial fibrillation with episodes of bradycardia. Heart rate dropping to 30s. The heart rate currently is stable. Patient is already on Xarelto 20 mg daily that will be continued. She is also on amiodarone 200 mg b.i.d. that will be decreased to 200 mg daily and she is also on Toprol-XL 50 mg daily. At this time, we will continue to watch the patient on telemetry. We will get an echocardiogram as well. 2. History of congestive heart failure, on Lasix 20 p.o. b.i.d. and Toprol 50 mg daily. Echocardiogram is pending at this time. 3. Altered mental status with substance abuse including urine tox that was positive for amphetamine. Further evaluation by Psychiatry. Patient is on Ativan and Neurontin. 4. Hyperlipidemia, on Pravachol. Thank you very much for allowing me to participate in the care of this patient. Please do not hesitate to contact me for any questions regarding my evaluation. Gregory Wu M.D. DR: ZHEN JOB#: [id number] CC:
--- NOTE | 2020-03-19 21:50 | NUR ---
NURSE NOTES: Patient had an episode of slow Afib, HR of 33. RN checked and assessed the patient and at this time, she denied any chest pain nor any discomfort. Informed Dr. Wu and no orders have been made. Patient is in stable condition, will continue to monitor.
[2020-03-19] MEDS: LORazepam 0.5mg tab ORAL SCH (21:55)
[2020-03-19] MEDS ORDERED: OLANZapine 2.5mg tab ORAL PRN (22:30)
[2020-03-20] VITALS: BP 142/90
--- NOTE | 2020-03-20 03:45 | Consultation ---
DATE OF CONSULTATION: 03/19/2020 CONSULTING PHYSICIAN: Janice Shoemaker M.D. HISTORY OF PRESENT ILLNESS: The patient is an 7-year-old female with a history of substance use disorder, as well as anxiety disorder, who has been admitted to the hospital for weakness, fatigue, cough, and abdominal pain. The patient is confused and she is a poor historian, unable to provide any meaningful history. The patient initially was unresponsive and have been . During the evaluation, the patient is awake. However, was unable to answer the question. Has episode of anxiety. She outside of the hospital and has poor memory. PAST PSYCHIATRIC HISTORY: Anxiety disorder and . PAST MEDICAL HISTORY: Significant for acute coronary syndrome, constipation, and atrial flutter. ALLERGIES: Codeine and Morphine. SUBSTANCE ABUSE HISTORY: No known history of alcohol, however, the patient has a history of opiate dependence. MENTAL STATUS EXAMINATION: Alert and oriented times self, place. Mood is anxious. Affect is flat. Thought process is a paucity of thought content. Thought content, no suicidal or homicidal ideation. Cognition is impaired. Insight and judgment is impaired. ASSESSMENT: [place] I Acute encephalopathy most likely due to opiates and medical condition. Anxiety disorder. [place] II Deferred. [place] III Rule out COVID-19. [place] IV Low. [place] V 20 PLAN: 1. Continue Ativan 0.5 mg at bedtime. 2. Zyprexa as needed. 3. . Janice Shoemaker M.D. DR: RICHA JOB#: [id number] CC:
[2020-03-20 04:00] VITALS: BP 145/94
--- NOTE | 2020-03-20 07:51 | NUR ---
HAND-OFF: Report given to JERRY Anthony. Patient is sleeping in stable condition, no chestpain nor desaturation. Plan of care endorsed.
[2020-03-20 08:00] VITALS: BP 123/65
--- NOTE | 2020-03-20 08:01 | NUR ---
NURSE NOTES: Received report from JERRY Crews. Observed pt sleeping, no s/sx of acute distress. Pt on 2L NC, breathing even and unlabored. IV site on R wrist patent and asymptomatic. Bed on lowest position, call light within reach. Will continue plan of care.
--- NOTE | 2020-03-20 08:54 | NUR ---
CASE MANAGEMENT:REVIEW 03/20/20 SI: CHEST PAIN. SOB. SUBSTANCE ABUSE URINE(+) AMPHETAMINES 96.4 95 20 123/65 94% ON RA IS: AMIODARONE PO QD TOPROL XL PO QD NEURONTIN PO QHS ATIVAN PO QHS PRAVACHOL PO QHS XARELTO PO QPM LASIX PO BID PROTONIX PO QD : TELEMETRY STATUS DCP: FROM HOME PLAN: SOCIAL SERVICE CONSULT
--- NOTE | 2020-03-20 08:55 | NUR ---
ETCHER AIRCRAFT NOTE SW received consult for substance abuse. SW attempted to meet w/ pt. Pt informed this SW that she has not been sleeping for 4 days that she does not want to get disturbed. SW will attempt later. RUDS positive for methamphetamine. Addendum: 03/20/20 at 1346 by MANN KING SW SW met w/ pt and attempted to assess substance abuse issue. Pt did not want to engage w/ this SW, stating that she is "tired and confused". Pt reports he resides alone at [address], [place] [address]. Pt denies SI/HI and denies current substance abuse, stating "I am taking a lot of medication". Pt also declined to discuss the overdose incident prior to admission. SW attempted to gather psychosocial information. However, pt declined to discuss/engage w/ this SW further. SW to F/U as needed. Emergency contact listed: Armin Frank (son) [phone]
[2020-03-20] MEDS ORDERED: Amiodarone 200mg tab ORAL SCH (09:00)
[2020-03-20] MEDS ORDERED: Metoprolol Succinate XL 25mg tab ORAL SCH (09:00)
[2020-03-20 12:00] VITALS: BP 129/60
--- NOTE | 2020-03-20 13:55 | NUR ---
*-* INSURANCE *-* UPDATED CLINICALS AND REVIEWS HAVE BEEN FAXED TO: [facility]: DARYL REF [id number] P: [phone] F: [phone]
--- NOTE | 2020-03-20 13:56 | Cardiac Electrophysiology PN ---
Assessment/Plan Assessment/Plan 1. Atrial fibrillation with episodes of bradycardia. Heart rate dropped to 30s. On Xarelto 20 mg daily. The heart rate better with decreasing amiodarone to 200 mg daily and Toprol-XL to 25 mg daily. 2. History of congestive heart failure, on Lasix 20 p.o. b.i.d. and Toprol 25 mg daily. Echocardiogram EF 65% 3. Altered mental status with substance abuse including urine tox that was positive for amphetamine. Further evaluation by Psychiatry. Patient is on Ativan and Neurontin. 4. Hyperlipidemia, on Pravachol. Subjective Subjective No Cardiac issues. Comfortable in NAD Objective Last 24 Hour Vital Signs Date Time Temp Pulse Resp B/P (MAP) Pulse Ox O2 Delivery O2 Flow Rate FiO2 03/20/20 12:00 96.8 89 22 129/60 (83) 95 03/20/20 11:32 85 03/20/20 09:02 95 123/65 03/20/20 09:00 Room Air 03/20/20 08:00 96.4 95 20 123/65 (84) 94 03/20/20 07:45 96 03/20/20 04:00 98.1 92 17 145/94 (111) 99 03/20/20 04:00 76 03/20/20 00:00 98.2 90 18 142/90 (107) 100 03/20/20 00:00 92 03/19/20 21:00 Room Air 03/19/20 20:00 80 03/19/20 20:00 97.9 86 15 166/86 (112) 96 03/19/20 16:00 97.7 98 18 166/65 (98) 96 03/19/20 16:00 83 Intake and Output 03/19/20 03/20/20 19:00 07:00 Intake Total 720 ml Output Total 1200 ml 1150 ml Balance -480 ml -1150 ml Intake Oral 720 ml Output Urine Total 1200 ml 1150 ml # Voids 2 Microbiology Date/Time Source Procedure Growth Status 03/18/20 20:15 Blood Blood Culture - Preliminary NO GROWTH AFTER 24 HOURS Resulted 03/18/20 20:00 Blood Blood Culture - Preliminary NO GROWTH AFTER 24 HOURS Resulted Objective HEAD AND NECK: Shows no JVD. LUNGS: Clear. CARDIOVASCULAR: Shows regular S1 and S2 with no gallop. ABDOMEN: Soft. EXTREMITIES: No pitting edema. Gregory Wu MD Mar 20, 2020 13:56
[2020-03-20 15:59] VITALS: BP 146/68
[2020-03-20] MEDS: Xarelto 10mg tab ORAL SCH (17:24)
--- NOTE | 2020-03-20 19:30 | NUR ---
NURSE NOTES: Report received from Gabrielle EDWARDS. Patient is awake and alert x 2. Patient is Ken[place] speaking but is able to make needs known. Patient is noted to be on 2 liters of oxygen via nasal canula. Denies shortness of breath and chest pain at this time. Patient is noted to have 22 sudarshan IV in right wrist. Was endorsed that patient is a full code status, patient requested to be DNR. Was endorsed that MD did not feel as though patient is psychologically able to make this decision at this time. Endorsed that patient is a high fall risk. Bed alarm on and in lowest position. Call light in reach. Endorsed that patient has orders to be transferred to medical surgical floor, waiting for open room. Will continue to follow plan of care.
--- NOTE | 2020-03-20 19:51 | NUR ---
HAND-OFF: Report given to JERRY Owens. Pt in stable condition, endorsed plan of care.
[2020-03-20 20:00] VITALS: BP 139/81
[2020-03-20] MEDS: LORazepam 0.5mg tab ORAL SCH (22:17)
--- NOTE | 2020-03-20 22:36 | NUR ---
NURSE NOTES: Receive a report from JERRY Owens. Pt transferred via hospital bed. Awake and alert X 3. Verbally responsive. No acute distress noted. Breathing is even and non labored. On O2 2L NC. No chest discomfort noted. Given room orientation with fall precautions and using call light. Will continue to monitor.
--- NOTE | 2020-03-20 22:36 | NUR ---
HAND-OFF: Report given to Tania RN. Endorsed that patient is a fall risk. Endorsed that patient has no skin break down at this time, but has Optifoam in place for preventative measures. Patient in stable condition at time of transfer. Patient is awake and alert x 3 at time of transfer. Patient had no complaints at time of transfer. Patient transferred via bed in stable condition. Endorsed plan of care.
--- NOTE | 2020-03-20 23:00 | NUR ---
NURSE NOTES: Checking belonging list with receipt of vang that pt brought with. Done body assessment. Sacrum area is no noted skin breakdown. Taken photos and reapply optiform after cleaning. No cracking on lung sound. Bowel sound intact. Reapply alejo-wick for incontinent. Inform to pt's son for transferring and pt spoke with him. Bed is locked and lowest. Call light within reach. Will continue to monitor.
--- NOTE | 2020-03-20 23:13 | Psych Consult Progress Note ---
Psychiatry Progress Note Psychiatry Progress Note Medications Current Medications Medications (Trade) Dose Ordered Sig/Hoa Route PRN Reason Start Time Stop Time Status Last Admin Dose Admin Acetaminophen (Tylenol) 650 mg Q6H PRN ORAL PRNH/TEMP 03/21/20 00:30 04/18/20 06:29 Albuterol/ Ipratropium (Albuterol/ Ipratropium) 3 ml Q4H PRN HHN Shortness of Breath 03/21/20 02:30 03/24/20 06:29 Amiodarone HCl (Cordarone) 200 mg DAILY ORAL 03/21/20 09:00 06/17/20 08:59 Furosemide (Lasix) 20 mg BID ORAL 03/21/20 09:00 04/18/20 08:59 Gabapentin (Neurontin) 600 mg QHS ORAL 03/21/20 21:00 04/18/20 20:59 Ibuprofen (Motrin) 600 mg Q6H PRN ORAL For Pain 03/21/20 00:30 04/18/20 06:29 Lorazepam (Ativan) 0.5 mg QHS ORAL 03/21/20 21:00 03/26/20 20:59 Metoprolol Succinate (Toprol XL) 25 mg DAILY ORAL 03/21/20 09:00 06/17/20 08:59 Nitroglycerin (Ntg) 0.4 mg PRN PRN SL CHEST PAIN 03/21/20 06:30 04/18/20 06:29 Olanzapine (ZyPREXA) 2.5 mg EVERY 6 HOURS PRN ORAL Agitation 03/21/20 00:00 05/03/20 22:29 Pantoprazole (Protonix) 40 mg DAILY ORAL 03/21/20 09:00 04/18/20 08:59 Pravastatin Sodium (Pravachol) 40 mg BEDTIME ORAL 03/21/20 21:00 04/18/20 20:59 Rivaroxaban (Xarelto) 20 mg QPM ORAL 03/21/20 16:30 06/17/20 16:29 Neurological/Psychiatric: Reports: anxiety, depressed, emotional problems Allergies: Coded Allergies: CODEINE (Verified Allergy, Unknown, 09/03/16) MORPHINE (Unverified Allergy, Unknown, 05/01/19) Objective Data Height (Feet): 5 Height (Inches): 0.00 Weight (Pounds): 214 Additional Comments: Alert and oriented times self, place. Mood is anxious. Affect is flat. Thought process is a paucity of thought content. Thought content, no suicidal or homicidal ideation. Cognition is impaired. Insight and judgment is impaired. Assessment/Plan Assessment/Plan: ASSESSMENT: [place] I Acute encephalopathy most likely due to opiates and medical condition. Anxiety disorder. [place] II Deferred. [place] III Rule out COVID-19. [place] IV Low. [place] V 20 PLAN: 1. Continue Ativan 0.5 mg at bedtime. 2. Zyprexa as needed. Janice Shoemaker MD Mar 20, 2020 23:13
--- NOTE | 2020-03-20 23:30 | Progress Note ---
DATE: 03/20/2020 SUBJECTIVE: This is an elderly female who came with altered mental status and abdominal pain. The patient is a sleeping. Also, drug scan was positive. OBJECTIVE: VITAL SIGNS: Blood pressure 126/60, pulse 89, no fever. CHEST: Bilaterally decreased breath sounds. CARDIOVASCULAR: Regular rhythm. ABDOMEN: Soft. SKIN: Turgor skin is positive for amphetamines. ASSESSMENT: 1. Altered mental status. 2. Confusion. 3. Dementia. PLAN: Consider Neurology consult. the patient's blood cultures are so far negative. We will order PT and OT. Consider psych consult. Hayder Jim M.D. DR: DAVID JOB#: [id number] CC:
[2020-03-21] VITALS: BP 142/85
[2020-03-21] MEDS: OLANZapine 2.5mg tab ORAL PRN ×3 (02:49→22:12)
[2020-03-21 04:00] VITALS: BP 135/87
--- NOTE | 2020-03-21 05:00 | NUR ---
NURSE NOTES: No acute distress noted. Denies pain. Provide fall precautions. Will continue to monitor.
[2020-03-21] MEDS ORDERED: Nitroglycerin Subl 0.4mg tab SL PRN (06:30)
--- NOTE | 2020-03-21 07:40 | NUR ---
HAND-OFF: Report given to JERRY Palmer. Round is done.
--- NOTE | 2020-03-21 07:52 | NUR ---
Made AM round, pt is in the bed asleep. No SOB noted. No facial grimacing for pain noted. Right AC IV site in place, no infiltration noted, will continue to follow plan of care.
[2020-03-21 08:00] VITALS: BP 145/81
[2020-03-21] MEDS: Metoprolol Succinate XL 25mg tab ORAL SCH (09:00)
[2020-03-21] MEDS: Amiodarone 200mg tab ORAL SCH (09:00)
--- NOTE | 2020-03-21 10:26 | NUR ---
RD ASSESSMENT & RECOMMENDATIONS SEE CARE ACTIVITY FOR COMPLETE ASSESSMENT DAILY ESTIMATED NEEDS: Needs based on cardiac, obese/ 58kg abw 25-28 kcals/kg 8612-2529 total kcals 1-1.5 g protein/kg 58-87 g total protein 25-30 mL/kg 6714-7723 total fluid mLs NUTRITION DIAGNOSIS: Decreased sodium and fat intake needs R/T cardiac hx, obesity as evidenced by h/o CHF, pt on diuretics therapy, BMI >40. CURRENT DIET:REGULAR, soft easy chew PO DIET RECOMMENDATIONS: CARDIAC/ texture as tolerated or per DIE CUTTER APPRENTICE ADDITIONAL RECOMMENDATIONS: 1) Calibrated bedscale wt 2) Monitor lytes w/ diuretics, replete as needed 3) Consider DIE CUTTER APPRENTICE eval for appropriate texture -> seen by DIE CUTTER APPRENTICE last April 2019, w/ rec for pureed moist w/ NTL .
[2020-03-21 12:00] VITALS: BP 149/83
--- NOTE | 2020-03-21 14:47 | NUR ---
CASE MANAGEMENT:REVIEW 03/21/20 SI: CHEST PAIN. SOB. SUBSTANCE ABUSE URINE(+) AMPHETAMINES 97.6 92 20 149/83 94% ON RA IS: AMIODARONE PO QD TOPROL XL PO QD LASIX PO BID PROTONIX PO QD ZYPREXA PO Q6HR : TELEMETRY STATUS DCP: FROM HOME PLAN: SOCIAL SERVICE CONSULT-NOT SPEAKING WITH SW SW WILL ATTEMPT TO INTERVIEW AGAIN COVID SWAB NEEDED FOR TRANSFER
--- NOTE | 2020-03-21 15:14 | NUR ---
POWER TRANSFORMER REPAIRER NOTE SW met w/ pt and assessed pt's home safety and re-assessed substance abuse. Pt presents as A&O 3x and hyperverbal. Pt is ambulatory w/ walker and her son, Armin Frank is providing some assistance w/ ADLs. Pt has two sons. Another son's name is Jovan Pimentel/Carlos JAMIE 02/04/1955 Pt denies ETOH/any other substance abuse. Pt reports she has a lot of medical issues and that she takes many medications. Pt reports her PCP is Dr. Graciela Gutierrez and her lung doctor is Jimenez Adams [phone] [place] [address]. Pt provided verbal consent to contact her son, Armin Frank. SW spoke w/ Armin [phone] that he is living w/ pt and that he is providing assistance and accommodating pt's needs. Mr. Funez does not share any concerns/needs/difficulties providing care/assistance. Pt plans to return home upon DC. SW to F/U as needed.
--- NOTE | 2020-03-21 15:18 | Cardiac Electrophysiology PN ---
Assessment/Plan Assessment/Plan 1. Atrial fibrillation with episodes of bradycardia down to 30s. On Xarelto 20 mg daily. The heart rate better with decreasing amiodarone to 200 mg daily and Toprol-XL to 25 mg daily. 2. History of congestive heart failure, on Lasix 20 p.o. b.i.d. and Toprol 25 mg daily. Echo EF 65% 3. Altered mental status with substance abuse including urine tox that was positive for amphetamine. Patient is on Ativan and Neurontin. 4. Hyperlipidemia, on Pravachol. Subjective Subjective No Cardiac issues. Comfortable in NAD. RN at bedside. Off tele Objective Last 24 Hour Vital Signs Date Time Temp Pulse Resp B/P (MAP) Pulse Ox O2 Delivery O2 Flow Rate FiO2 03/21/20 12:00 97.6 92 20 149/83 (105) 94 03/21/20 09:00 Room Air 03/21/20 09:00 80 145/81 03/21/20 08:00 98.3 80 18 145/81 (102) 92 03/21/20 04:00 97.4 96 18 135/87 (103) 97 03/21/20 00:00 98.2 91 18 142/85 (104) 97 03/20/20 21:00 Room Air 03/20/20 20:00 97.2 84 20 139/81 (100) 98 03/20/20 15:59 97.0 78 20 146/68 (94) 96 Intake and Output 03/20/20 03/21/20 19:00 07:00 Intake Total 360 ml 150 ml Output Total 600 ml 600 ml Balance -240 ml -450 ml Intake Oral 360 ml 150 ml Output Urine Total 600 ml 600 ml Microbiology Date/Time Source Procedure Growth Status 03/18/20 20:15 Blood Blood Culture - Preliminary NO GROWTH AFTER 48 HOURS Resulted 03/18/20 20:00 Blood Blood Culture - Preliminary NO GROWTH AFTER 48 HOURS Resulted Objective HEAD AND NECK: Shows no JVD. LUNGS: Clear. CARDIOVASCULAR: Shows regular S1 and S2 with no gallop. ABDOMEN: Soft. EXTREMITIES: No pitting edema. Gregory Wu MD Mar 21, 2020 15:18
--- NOTE | 2020-03-21 15:20 | NUR ---
NOTIFY PT'S DC TO SON KENZIE KOEHLER [phone] IN ADVANCE
[2020-03-21 16:00] VITALS: BP 136/76
[2020-03-21] MEDS: Xarelto 10mg tab ORAL SCH (16:40)
--- NOTE | 2020-03-21 17:07 | NUR ---
*-* INSURANCE *-* UPDATED CLINICALS AND REVIEWS HAVE BEEN FAXED TO: [facility]: DARYL REF [id number] P: [phone] F: [phone]
[2020-03-21] MEDS: Albuterol/Ipratropium 3ml neb HHN PRN (19:02)
--- NOTE | 2020-03-21 19:50 | NUR ---
NURSE NOTES: Received report from JERRY Palmer. Pt is awake, lying semi-winters's; comfortably resting. Pt denies any pain at this time. No signs of acute distress noted. AOx3; able to make needs known. Checked IV site; patent and flushed. No bleeding or infiltration noted. Redness on the sacrum noted with optifoam. Bed at lowest position. Brakes on. Siderails up x 3. Call light within reach. Will continue to monitor.
[2020-03-21 20:00] VITALS: BP 143/90
[2020-03-21] MEDS: LORazepam 0.5mg tab ORAL SCH (21:16)
[2020-03-22] VITALS (10 sets, daily range): BP systolic 109–148; BP diastolic 56–90
--- NOTE | 2020-03-22 00:20 | Psych Consult Progress Note ---
Psychiatry Progress Note Psychiatry Progress Note Subjective 03/21/20 Medications Current Medications Medications (Trade) Dose Ordered Sig/Hoa Route PRN Reason Start Time Stop Time Status Last Admin Dose Admin Acetaminophen (Tylenol) 650 mg Q6H PRN ORAL PRNH/TEMP 03/21/20 00:30 04/18/20 06:29 Albuterol/ Ipratropium (Albuterol/ Ipratropium) 3 ml Q4H PRN HHN Shortness of Breath 03/21/20 02:30 03/24/20 06:29 03/21/20 19:02 Amiodarone HCl (Cordarone) 200 mg DAILY ORAL 03/21/20 09:00 06/17/20 08:59 03/21/20 09:00 Furosemide (Lasix) 20 mg BID ORAL 03/21/20 09:00 04/18/20 08:59 03/21/20 17:48 Gabapentin (Neurontin) 600 mg QHS ORAL 03/21/20 21:00 04/18/20 20:59 03/21/20 21:17 Ibuprofen (Motrin) 600 mg Q6H PRN ORAL For Pain 03/21/20 00:30 04/18/20 06:29 Lorazepam (Ativan) 0.5 mg QHS ORAL 03/21/20 21:00 03/26/20 20:59 03/21/20 21:16 Metoprolol Succinate (Toprol XL) 25 mg DAILY ORAL 03/21/20 09:00 06/17/20 08:59 03/21/20 09:00 Nitroglycerin (Ntg) 0.4 mg PRN PRN SL CHEST PAIN 03/21/20 06:30 04/18/20 06:29 Olanzapine (ZyPREXA) 2.5 mg EVERY 6 HOURS PRN ORAL Agitation 03/21/20 00:00 05/03/20 22:29 03/21/20 22:12 Pantoprazole (Protonix) 40 mg DAILY ORAL 03/21/20 09:00 04/18/20 08:59 03/21/20 09:00 Pravastatin Sodium (Pravachol) 40 mg BEDTIME ORAL 03/21/20 21:00 04/18/20 20:59 03/21/20 21:17 Rivaroxaban (Xarelto) 20 mg QPM ORAL 03/21/20 16:30 06/17/20 16:29 03/21/20 16:40 Allergies: Coded Allergies: CODEINE (Verified Allergy, Unknown, 09/03/16) MORPHINE (Unverified Allergy, Unknown, 05/01/19) Objective Data Height (Feet): 5 Height (Inches): 0.00 Weight (Pounds): 214 General Appearance: no apparent distress, alert Assessment/Plan Status: stable Assessment/Plan: ASSESSMENT: [place] I Acute encephalopathy most likely due to opiates and medical condition. Anxiety disorder. [place] II Deferred. [place] III Rule out COVID-19. [place] IV Low. [place] V 20 PLAN: 1. Continue Ativan 0.5 mg at bedtime. 2. Zyprexa as needed. Janice Shoemaker MD Mar 22, 2020 00:19
--- NOTE | 2020-03-22 07:17 | NUR ---
NURSE NOTES: Report received from Cynthia EDWARDS, rounds made. Patient sleeping, calm, respirations even/unlabored on RA. Purewik in place, y/cl urine in canister. Call light in reach, bed in lowest position, will continue to monitor.
--- NOTE | 2020-03-22 07:25 | NUR ---
HAND-OFF: Report given to JERRY Mckinley. Pt is sleeping and in stable condition. Plan of care endorsed.
[2020-03-22] MEDS: Metoprolol Succinate XL 25mg tab ORAL SCH (09:00)
[2020-03-22] MEDS: Amiodarone 200mg tab ORAL SCH (09:00)
--- NOTE | 2020-03-22 11:04 | NUR ---
*-* INSURANCE *-* UPDATED CLINICALS HAVE BEEN FAXED TO: [facility]: DARYL REF [id number] P: [phone] F: [phone]
--- NOTE | 2020-03-22 11:08 | Cardiac Electrophysiology PN ---
Assessment/Plan Assessment/Plan 1. Atrial fibrillation with episodes of bradycardia down to 30s. On Xarelto 20 mg daily. Now on low dose amiodarone 200 mg daily and Toprol-XL 25 mg daily. 2. History of congestive heart failure, on Lasix 20 p.o. b.i.d. and Toprol 25 mg daily. EF 65% 3. Altered mental status with substance abuse including urine tox that was positive for amphetamine. Patient is on Ativan and Neurontin. 4. Hyperlipidemia, on Pravachol. Subjective Subjective Comfortable in NAD. RN at bedside.VSS. Confused Objective Last 24 Hour Vital Signs Date Time Temp Pulse Resp B/P (MAP) Pulse Ox O2 Delivery O2 Flow Rate FiO2 03/22/20 09:00 80 124/56 03/22/20 08:00 98.3 80 20 124/56 (78) 94 03/22/20 03:49 98.1 78 20 126/73 (90) 95 03/22/20 00:00 98.1 81 19 119/57 (77) 96 03/21/20 21:00 Room Air 03/21/20 20:00 97.9 98 18 143/90 (107) 96 03/21/20 18:59 76 20 95 Nasal Cannula 1.0 24 73 20 90 03/21/20 16:00 97.7 74 18 136/76 (96) 96 03/21/20 12:00 97.6 92 20 149/83 (105) 94 Intake and Output 03/21/20 03/22/20 19:00 07:00 Output Total 1800 ml Balance -1800 ml Output Urine Total 1800 ml Objective HEAD AND NECK: Shows no JVD. LUNGS: Clear. CARDIOVASCULAR: Shows regular S1 and S2 with no gallop. ABDOMEN: Soft. EXTREMITIES: No pitting edema. Gregory Wu MD Mar 22, 2020 11:08
[2020-03-22] MEDS: Nitroglycerin Subl 0.4mg tab SL PRN ×2 (12:14→12:19)
--- NOTE | 2020-03-22 13:48 | NUR ---
CASE MANAGEMENT:REVIEW 03/22/20 SI: CHEST PAIN. SOB. SUBSTANCE ABUSE URINE(+) AMPHETAMINES 98.3 80 20 124/56 94% ON RA IS: AMIODARONE PO QD TOPROL XL PO QD LASIX PO BID PROTONIX PO QD ZYPREXA PO Q6HR NEURONTIN PO QHS PRAVACHOL PO QHS ALBUTEROL Q4HR/PRN : 3E MED SURG UNIT DCP: HOME WITH SON WHEN STABLE PLAN: PT EVAL AND THERAPY EKG AND TROP
--- NOTE | 2020-03-22 14:05 | NUR ---
NURSE NOTES: Patient complains of chest pain 11/27-03/27 that comes and goes. Vitals stable, T 97.2 P 79 RR 20 BP 124/75 O2 sat 94% on RA. No SOB. Patient calm. Dr. De Leon notified, orders received from NTG 0.4 mg SL every 5 min x3, STAT Troponin and ECG (lab and cardiology notified), patient updated with new orders, medicated with NTG x1 at 1219, patient denies CP. Vitals monitored, see vitals (remains stable)
--- NOTE | 2020-03-22 14:15 | NUR ---
P.T Note: P.T evaluation completed and tx initiated. Please refer to P.T evaluation for current functional status. Pt is alert, O x 4 , pleasant and cooperative. Pt reports c/o chest pain 3/10 aggravated when coughing. Pt reports c/o generalize weakness and fatigue. Pt currently requires MIN A X 1 for bed mobility , transfers and gait/ambulation activities using the FWW. Vitals were stable , no dizziness nor increased in chest pain during entire functional activities. Skilled P.T services is warranted to improved her strength and endurance to increased mobility independence and safety. Recommend Home P.T at [place]. Pt is cleared for OOB activities with nursing assist and FWW.
--- NOTE | 2020-03-22 15:00 | NUR ---
NURSE NOTES: Troponin negative. Patient denies CP.
--- NOTE | 2020-03-22 16:00 | NUR ---
NURSE NOTES: Dr. Jim updated with patient current status. Patient requesting respiratory treatment due to history of COPD per patient, RT called notified of current status, recent complains of CP and feeling a little SOB at rest. Orders received for CXR and MOM (patient requesting laxative due to no BM since 03/19). Will continue to monitor.
[2020-03-22] MEDS: Xarelto 10mg tab ORAL SCH (16:15)
[2020-03-22] MEDS: Acetaminophen 650mg/20.3ml ORAL PRN (16:23)
[2020-03-22] MEDS ORDERED: Milk of Magnesia 30ml Ud ORAL PRN (16:45)
--- NOTE | 2020-03-22 19:15 | NUR ---
NURSE NOTES: Received report from JERRY Morel. Pt is awake, lying semi winters's; comfortably resting. No signs of acute distress noted. Pt denies any pain at this time. AOx3; able to make needs known. Checked IV site; patent and flushed. No erythema, bleeding or infiltration noted. Bed at lowest position. Brakes on. Siderails up x3. Bed alarm on. Call light within reach. Will continue to monitor.
--- NOTE | 2020-03-22 19:45 | NUR ---
HAND-OFF: Report given to Cynthia EDWARDS, rounds made, patient stable. Endorsed patient requesting respiratory treatment (RT already notified).
--- NOTE | 2020-03-22 20:15 | Progress Note ---
DATE: 03/22/2020 SUBJECTIVE: This is an 79-year-old female came with altered mental status, chest pain, and coronary artery disease. Patient is currently in bed, comfortable. OBJECTIVE: VITAL SIGNS: Blood pressure 124/56, pulse 80s, temperature 98.3. HEENT: NAD. CHEST: Bilateral crackles. CARDIOVASCULAR: Regular rhythm. ABDOMEN: Soft. EXTREMITIES: No CCE. NEUROLOGICAL: Generalized weakness. ASSESSMENT: 1. Acute coronary syndrome. 2. Hypertension. 3. Anxiety. 4. History of substance abuse. PLAN: 1. Continue current treatment. 2. PT and OT. Hayder Jim M.D. DR: PREETI JOB#: [id number] CC:
[2020-03-22] MEDS: Albuterol/Ipratropium 3ml neb HHN PRN (20:26)
[2020-03-22] MEDS: LORazepam 0.5mg tab ORAL SCH ×2 (21:19→21:35)
--- NOTE | 2020-03-22 22:56 | Psych Consult Progress Note ---
Psychiatry Progress Note Psychiatry Progress Note Medications Current Medications Medications (Trade) Dose Ordered Sig/Hoa Route PRN Reason Start Time Stop Time Status Last Admin Dose Admin Acetaminophen (Tylenol) 650 mg Q6H PRN ORAL PRNH/TEMP 03/21/20 00:30 04/18/20 06:29 03/22/20 16:23 Albuterol/ Ipratropium (Albuterol/ Ipratropium) 3 ml Q4H PRN HHN Shortness of Breath 03/21/20 02:30 03/24/20 06:29 03/22/20 20:26 Amiodarone HCl (Cordarone) 200 mg DAILY ORAL 03/21/20 09:00 06/17/20 08:59 03/22/20 09:00 Furosemide (Lasix) 20 mg BID ORAL 03/21/20 09:00 04/18/20 08:59 03/22/20 18:00 Gabapentin (Neurontin) 600 mg QHS ORAL 03/21/20 21:00 04/18/20 20:59 03/22/20 21:19 Ibuprofen (Motrin) 600 mg Q6H PRN ORAL For Pain 03/21/20 00:30 04/18/20 06:29 Lorazepam (Ativan) 0.5 mg QHS ORAL 03/21/20 21:00 03/26/20 20:59 03/22/20 21:35 Magnesium Hydroxide (Mom) 30 ml BIDPRN PRN ORAL Constipation 03/22/20 16:45 04/21/20 16:44 03/22/20 18:37 Metoprolol Succinate (Toprol XL) 25 mg DAILY ORAL 03/21/20 09:00 06/17/20 08:59 03/22/20 09:00 Nitroglycerin (Ntg) 0.4 mg Q5M PRN SL Prn Chest Pain 03/22/20 12:00 04/21/20 11:59 03/22/20 12:19 Olanzapine (ZyPREXA) 2.5 mg EVERY 6 HOURS PRN ORAL Agitation 03/21/20 00:00 05/03/20 22:29 03/21/20 22:12 Pantoprazole (Protonix) 40 mg DAILY ORAL 03/21/20 09:00 04/18/20 08:59 03/22/20 09:00 Pravastatin Sodium (Pravachol) 40 mg BEDTIME ORAL 03/21/20 21:00 04/18/20 20:59 03/22/20 21:35 Rivaroxaban (Xarelto) 20 mg QPM ORAL 03/21/20 16:30 06/17/20 16:29 03/22/20 16:15 Neurological/Psychiatric: Reports: anxiety, depressed, emotional problems Allergies: Coded Allergies: CODEINE (Verified Allergy, Unknown, 09/03/16) MORPHINE (Unverified Allergy, Unknown, 05/01/19) Objective Data Height (Feet): 5 Height (Inches): 0.00 Weight (Pounds): 214 General Appearance: WD/WN, no apparent distress, alert Additional Comments: Alert and oriented times self, place. Mood is anxious. Affect is flat. Thought process is a paucity of thought content. Thought content, no suicidal or homicidal ideation. Cognition is impaired. Insight and judgment is impaired. Assessment/Plan Status: stable Assessment/Plan: ASSESSMENT: [place] I Acute encephalopathy most likely due to opiates and medical condition. Anxiety disorder. [place] II Deferred. [place] III Rule out COVID-19. [place] IV Low. [place] V 20 PLAN: 1. Continue Ativan 0.5 mg at bedtime. 2. Zyprexa as needed. Janice Shoemaker MD Mar 22, 2020 22:56
[2020-03-23 04:00] VITALS: BP 129/78
--- NOTE | 2020-03-23 06:44 | Cardiac Electrophysiology PN ---
Assessment/Plan Assessment/Plan 1. Atrial fibrillation with episodes of bradycardia down to 30s. On Xarelto 20 mg daily. Rate stable now on low dose amiodarone 200 mg daily and Toprol-XL 25 mg daily. 2. History of congestive heart failure, on Lasix 20 p.o. b.i.d. and Toprol 25 mg daily. EF 65% 3. Altered mental status with substance abuse including urine tox that was positive for amphetamine. Patient is on Ativan and Neurontin. 4. Hyperlipidemia, on Pravachol. Subjective Subjective Comfortable in NAD.VSS. Confused Objective Last 24 Hour Vital Signs Date Time Temp Pulse Resp B/P (MAP) Pulse Ox O2 Delivery O2 Flow Rate FiO2 03/23/20 04:00 97.3 74 16 129/78 (95) 96 03/22/20 21:00 Room Air 03/22/20 20:25 74 20 98 Nasal Cannula 2.0 28 73 20 97 03/22/20 20:00 97.2 66 22 143/76 (98) 97 03/22/20 16:00 97.3 76 20 142/74 (96) 99 03/22/20 14:05 84 20 124/90 (101) 96 03/22/20 13:35 72 20 148/84 (105) 95 03/22/20 12:30 80 109/69 (82) 03/22/20 12:19 146/86 03/22/20 12:15 83 146/86 (106) 03/22/20 12:00 97.2 79 20 124/75 (91) 94 03/22/20 09:00 80 124/56 03/22/20 09:00 Room Air 03/22/20 08:00 98.3 80 20 124/56 (78) 94 Intake and Output 03/22/20 03/23/20 19:00 07:00 Intake Total 680 ml Output Total 400 ml Balance 280 ml Intake Oral 680 ml Output Urine Total 400 ml Laboratory Tests Test 03/22/20 13:00 Troponin I 0.000 ng/mL (0.000-0.056) Objective HEAD AND NECK: Shows no JVD. LUNGS: Clear. CARDIOVASCULAR: Shows regular S1 and S2 with no gallop. ABDOMEN: Soft. EXTREMITIES: No pitting edema. Gregory Wu MD Mar 23, 2020 06:44
--- NOTE | 2020-03-23 07:10 | NUR ---
HAND-OFF: Report given to JERRY Mckinley. Pt is sleeping and in stable condition. Plan of car endorsed.
--- NOTE | 2020-03-23 07:35 | NUR ---
HAND-OFF: Report given to JERRY Mckinley. Pt is awake and in stable condition. Plan of care endorsed. Addendum: 03/23/20 at 0736 by Mian Mooney RN Duplicate of previous note.
[2020-03-23 08:00] VITALS: BP 151/79
--- NOTE | 2020-03-23 08:26 | Diagnostic Imaging Report ---
EXAM: XR Chest, 1 View CLINICAL HISTORY: Shortness of breath TECHNIQUE: Frontal view of the chest. COMPARISON: Chest x-ray dated 03/18/20 FINDINGS: Lungs: Mild pulmonary vascular congestion. The lungs are otherwise clear without focal consolidation. Pleural space: Unremarkable. The costophrenic angles are sharp. No visible pneumothorax. Heart: Cardiomegaly. Mediastinum: Unremarkable. Bones/joints: Unremarkable. Vasculature: Mild atherosclerotic calcifications are noted within the aortic arch. IMPRESSION: 1. Cardiomegaly. 2. Mild pulmonary vascular congestion.
--- NOTE | 2020-03-23 09:35 | NUR ---
RADIOLOGY DEPT., CHEST X-RAY DONE.-P.DYE
[2020-03-23] MEDS: Amiodarone 200mg tab ORAL SCH (09:43)
[2020-03-23] MEDS: Metoprolol Succinate XL 25mg tab ORAL SCH (09:44)
[2020-03-23] MEDS: Albuterol/Ipratropium 3ml neb HHN PRN (10:31)
--- NOTE | 2020-03-23 11:33 | NUR ---
NURSE NOTES: Dr. Jim notified of PCXR results and patient has dry cough/lungs clear, received respiratory treatment, orders received for Lasix 20 mg IV x 3 days, see order/eMAR. Will follow as ordered.
[2020-03-23 12:00] VITALS: BP 151/69
[2020-03-23] MEDS: Acetaminophen 650mg/20.3ml ORAL PRN (14:10)
--- NOTE | 2020-03-23 15:00 | NUR ---
CASE MANAGEMENT:REVIEW SI;ACUTE ENCEPHALOPATHY. AMS. AC CORONARY SYNDROME. Hx SUBSTANCE ABUSE 97.3 76 20 151/79 92% 2L NC IS;LASIX IV BID XARELTO PO QPM AMIODARONE PO QD TOPROL PO QD PROTONIX PO QD PRAVACHOL PO QHS ALBUTEROL Q4HR/PRN MED SURG STATUS DCP;PATIENT WILL DC HOME WITH SON PLAN;PT/OT
[2020-03-23 16:00] VITALS: BP 149/77
[2020-03-23] MEDS: Xarelto 10mg tab ORAL SCH (17:37)
--- NOTE | 2020-03-23 18:00 | NUR ---
NURSE NOTES: Patient up with one assist, transfers from bed to chair, repositions in bed with assistance, skin remains intact, no redness to sacral area or heels. Patient incontinent, Purewik in place. Skin care provided throughout shift.
--- NOTE | 2020-03-23 19:20 | NUR ---
NURSE NOTES: Received report from carrie addison. patient is on bed, awake and verbally responsive. denies any pain or discomfort. no sob. with iv on the right forearm, saline lock. noted with external catheter, draining well. reiterated to call and ask for assistance by using call light. call light and light button within easy reach. bed locked and in lowest position. bed alarm on. needs attended and met. provided rest and comfort.will continue plan of care.
--- NOTE | 2020-03-23 19:32 | NUR ---
HAND-OFF: Report given to Elizabeth EDWARDS, rounds made, patient stable.
[2020-03-23 20:00] VITALS: BP 128/68
[2020-03-23] MEDS: LORazepam 0.5mg tab ORAL SCH (20:21)
[2020-03-23] MEDS: OLANZapine 2.5mg tab ORAL PRN (23:13)
--- NOTE | 2020-03-23 23:47 | Psych Consult Progress Note ---
Psychiatry Progress Note Psychiatry Progress Note Subjective the pt was anxious and has poor cognition Medications Current Medications Medications (Trade) Dose Ordered Sig/Hoa Route PRN Reason Start Time Stop Time Status Last Admin Dose Admin Acetaminophen (Tylenol) 650 mg Q6H PRN ORAL PRNH/TEMP 03/21/20 00:30 04/18/20 06:29 03/23/20 14:10 Albuterol/ Ipratropium (Albuterol/ Ipratropium) 3 ml Q4H PRN HHN Shortness of Breath 03/21/20 02:30 03/24/20 06:29 03/23/20 10:31 Amiodarone HCl (Cordarone) 200 mg DAILY ORAL 03/21/20 09:00 06/17/20 08:59 03/23/20 09:43 Furosemide (Lasix) 20 mg TWICE A DAY IV 03/23/20 18:00 03/26/20 09:01 03/23/20 17:37 Gabapentin (Neurontin) 600 mg QHS ORAL 03/21/20 21:00 04/18/20 20:59 03/23/20 20:21 Ibuprofen (Motrin) 600 mg Q6H PRN ORAL For Pain 03/21/20 00:30 04/18/20 06:29 Lorazepam (Ativan) 0.5 mg QHS ORAL 03/21/20 21:00 03/26/20 20:59 03/23/20 20:21 Magnesium Hydroxide (Mom) 30 ml BIDPRN PRN ORAL Constipation 03/22/20 16:45 04/21/20 16:44 03/22/20 18:37 Metoprolol Succinate (Toprol XL) 25 mg DAILY ORAL 03/21/20 09:00 06/17/20 08:59 03/23/20 09:44 Nitroglycerin (Ntg) 0.4 mg Q5M PRN SL Prn Chest Pain 03/22/20 12:00 04/21/20 11:59 03/22/20 12:19 Olanzapine (ZyPREXA) 2.5 mg EVERY 6 HOURS PRN ORAL Agitation 03/21/20 00:00 05/03/20 22:29 03/23/20 23:13 Pantoprazole (Protonix) 40 mg DAILY ORAL 03/21/20 09:00 04/18/20 08:59 03/23/20 09:43 Pravastatin Sodium (Pravachol) 40 mg BEDTIME ORAL 03/21/20 21:00 04/18/20 20:59 03/23/20 20:21 Rivaroxaban (Xarelto) 20 mg QPM ORAL 03/21/20 16:30 06/17/20 16:29 03/23/20 17:37 Neurological/Psychiatric: Reports: anxiety, depressed, emotional problems Allergies: Coded Allergies: CODEINE (Verified Allergy, Unknown, 09/03/16) MORPHINE (Unverified Allergy, Unknown, 05/01/19) Objective Data Height (Feet): 5 Height (Inches): 0.00 Weight (Pounds): 214 Additional Comments: Alert and oriented times self, place. Mood is anxious. Affect is flat. Thought process is a paucity of thought content. Thought content, no suicidal or homicidal ideation. Cognition is impaired. Insight and judgment is impaired. Assessment/Plan Status: stable Assessment/Plan: ASSESSMENT: [place] I Acute encephalopathy most likely due to opiates and medical condition. Anxiety disorder. [place] II Deferred. [place] III Rule out COVID-19. [place] IV Low. [place] V 20 PLAN: 1. Continue Ativan 0.5 mg at bedtime. 2. Zyprexa as needed. Janice Shoemaker MD Mar 23, 2020 23:47
--- NOTE | 2020-03-24 01:00 | Progress Note ---
DATE: 03/23/2020 SUBJECTIVE: This is an 79-year-old female, currently in the bed, comfortable, complaining constipation and anxiety. OBJECTIVE: VITAL SIGNS: Blood pressure is 130/70, pulse 84, respirations 18, no fever. SKIN: Good skin turgor. HEENT: NAD. CHEST: Bilaterally decreased breath sounds. CARDIOVASCULAR: Regular rhythm. ABDOMEN: Soft. EXTREMITIES: CCE. NEUROLOGICAL: Generalized weakness. ASSESSMENT: 1. CHF, decompensated. 2. Hypertension. 3. Anxiety. 4. History of substance abuse. PLAN: 1. We will currently continue antibiotic, continue Lasix, bronchodilator treatments. 2. Discussed with the charge nurse. Hayder Jim M.D. DR: DAVID JOB#: [id number] CC:
--- NOTE | 2020-03-24 01:29 | NUR ---
NURSE NOTES: patient is complaining that she cannot sleep. dr. dawn informed with a new order of ambien 5mg po QHS prn for insomnia. order noted and carried out. charge nurse made aware
[2020-03-24] MEDS ORDERED: Zolpidem 5mg tab ORAL PRN (01:30)
[2020-03-24] MEDS: Albuterol/Ipratropium 3ml neb HHN PRN ×3 (01:46→21:36)
[2020-03-24 04:00] VITALS: BP 130/73
--- NOTE | 2020-03-24 07:34 | NUR ---
NURSE NOTES: Report received from Elizabeth EDWARDS, rounds made. Patient sleeping, calm, respirations even/unlabored on RA, no distress. Purewik in place, y/cl urine in canister. Call light in reach, bed in lowest position, will continue to monitor.
--- NOTE | 2020-03-24 07:40 | NUR ---
HAND-OFF: Report given to carrie addison. patient is asleep. no sob. plan of care endorsed
[2020-03-24 08:00] VITALS: BP 145/97
[2020-03-24] MEDS: Metoprolol Succinate XL 25mg tab ORAL SCH (09:17)
[2020-03-24] MEDS: Amiodarone 200mg tab ORAL SCH (09:17)
--- NOTE | 2020-03-24 11:45 | NUR ---
NURSE NOTES: Dr. De Leon updated at bedside on patient current status (CXR results, Lasix 20 mg IV BID), no further orders.
[2020-03-24 12:00] VITALS: BP 112/60
--- NOTE | 2020-03-24 12:00 | Cardiac Electrophysiology PN ---
Assessment/Plan Assessment/Plan 1. Atrial fibrillation with episodes of bradycardia down to 30s. On Xarelto 20 mg daily. On amiodarone 200 mg daily and Toprol-XL 25 mg daily. 2. History of congestive heart failure, on Lasix 20 p.o. b.i.d. and Toprol 25 mg daily. EF 65% 3. Altered mental status with substance abuse including urine tox that was positive for amphetamine. Patient is on Ativan and Neurontin. 4. Hyperlipidemia, on Pravachol. Subjective Subjective Comfortable in NAD.VSS. Had CXR Objective Last 24 Hour Vital Signs Date Time Temp Pulse Resp B/P (MAP) Pulse Ox O2 Delivery O2 Flow Rate FiO2 03/24/20 09:17 87 145/97 03/24/20 08:00 98.7 87 19 145/97 (113) 97 03/24/20 05:26 80 19 99 Nasal Cannula 2.0 28 81 20 96 03/24/20 04:00 98.2 75 19 130/73 (92) 95 03/24/20 01:44 78 18 99 Nasal Cannula 2.0 28 79 20 95 03/23/20 21:00 Room Air 03/23/20 20:00 97.9 72 20 128/68 (88) 96 03/23/20 16:00 98.3 72 20 149/77 (101) 97 03/23/20 12:00 97.9 81 18 151/69 (96) 96 Intake and Output 03/23/20 03/24/20 19:00 07:00 Intake Total 960 ml Balance 960 ml Intake Oral 960 ml # Bowel Movements 2 Objective HEAD AND NECK: No JVD. LUNGS: Clear. CARDIOVASCULAR: Regular S1 and S2 with no gallop. ABDOMEN: Soft. EXTREMITIES: No pitting edema. Gregory Wu MD Mar 24, 2020 12:00
--- NOTE | 2020-03-24 12:30 | NUR ---
NURSE NOTES: Dr. Jim notified of patient continues to complain of dry cough and wants antibiotic treatment, orders received for Rocephin 1 gm IV Q24 hr, patient updated, verbalized understanding.
[2020-03-24] MEDS: cefTRIAXone 1 GM in D5W 55 ML IVPB SCH (13:43)
[2020-03-24 16:00] VITALS: BP 153/75
[2020-03-24] MEDS: Xarelto 10mg tab ORAL SCH (16:43)
--- NOTE | 2020-03-24 16:50 | NUR ---
NURSE NOTES: Dr. Jim notified of patient complains of BLE pain to touch (more on right leg/thigh), slight erythema, pitting edema +1, no further orders.
--- NOTE | 2020-03-24 19:36 | NUR ---
HAND-OFF: Report given to Zainab EDWARDS, rounds made, patient stable.
--- NOTE | 2020-03-24 19:45 | NUR ---
NURSE NOTES: Received report from JERRY Mckinley. Patient awake, alert. Wishes to sit on chair. Assisted to chair, also with help from walker. Bed linen changed, incontinent of urine. Bed in low position, locked, side rails up x2, call light within reach. Instructed to call when ready to get back in bed or as needed. Will continue to monitor.
--- NOTE | 2020-03-24 19:45 | NUR ---
NURSE NOTES: Pt requested to take out some of money from saving in the office. Spoke to House [employer]. the situation. Will continue to follow up.
[2020-03-24 20:00] VITALS: BP 150/79
--- NOTE | 2020-03-24 20:00 | NUR ---
NURSE NOTES: Spoke to pt's son on the phone and explained for the process. He verbalized understanding. Will continue to follow up. After hung up the phone, pt said that she would not take out money from saving after all.
--- NOTE | 2020-03-24 20:01 | NUR ---
NURSE NOTES: Patient requests breathing tx, RT called. Addendum: 03/24/20 at 2047 by Zainab Rock RN Patient back in bed, no SOB noted. VSS. physician called for renewal of breathing tx
--- NOTE | 2020-03-24 20:30 | NUR ---
NURSE NOTES: Receive a call from security desk that pt's son comes to picking tech money. Explained for the situation. Spoke to [employer]. Security came up to nursing station for the receipt.
--- NOTE | 2020-03-24 20:50 | NUR ---
NURSE NOTES: Systems Eng and security came up with envelope of money from saving and counted money in front of pt. Took out $100 out and given to son by security and the rest of money is saved in the saving. Pt signed the paper and kept yellow receipt with her.
[2020-03-24] MEDS: LORazepam 0.5mg tab ORAL SCH (21:09)
--- NOTE | 2020-03-24 21:25 | NUR ---
NURSE NOTES: Breathing treatment order got discontinued. Spoke to Dr. Jim and receive renewal order. Order noted and carried out.
--- NOTE | 2020-03-24 21:30 | NUR ---
NURSE NOTES: Linen and gown changed due to urine incontinence, pericare done. No redness noted on sacrum, skin is intact. Encouraged to turn often in bed, encouraged to call if she needs assistance. Patient able to move well in bed on her own. Will continue to monitor.
[2020-03-24] MEDS: OLANZapine 2.5mg tab ORAL PRN (23:56)
[2020-03-24] MEDS: Acetaminophen 650mg/20.3ml ORAL PRN (23:57)
[2020-03-25] VITALS: BP 111/54
--- NOTE | 2020-03-25 02:05 | NUR ---
NURSE NOTES: Patient asleep, resp unlabored.
[2020-03-25 04:00] VITALS: BP 118/75
--- NOTE | 2020-03-25 05:55 | NUR ---
NURSE NOTES: Patient states was able to sleep well after medication. Incontinent of urine, linen and gown changed, alejo care done. No distress noted, no complaints of pain. Will continue to monitor.
--- NOTE | 2020-03-25 07:15 | NUR ---
HAND-OFF: Report given to JERRY Lancaster. Rounds done, patient dozing off.
--- NOTE | 2020-03-25 07:55 | NUR ---
NURSE NOTES: Received report from Zainab EDWARDS, rounds made pt sleeping with no s/s of distress on O2 1L via NC, ,bed in low locked position, side rails upX2, call light with in reach , will continue with plan of care
[2020-03-25 08:00] VITALS: BP 132/79
[2020-03-25] MEDS: Amiodarone 200mg tab ORAL SCH (08:55)
[2020-03-25] MEDS: Metoprolol Succinate XL 25mg tab ORAL SCH (08:55)
--- NOTE | 2020-03-25 10:57 | Cardiac Electrophysiology PN ---
Assessment/Plan Assessment/Plan 1. Atrial fibrillation with episodes of bradycardia down to 30s. On Xarelto 20 mg daily. On amiodarone 200 mg daily and Toprol-XL 25 mg daily HR stable 2. History of congestive heart failure, on Lasix 20 iv b.i.d. and Toprol 25 mg daily. EF 65% 3. Altered mental status with substance abuse including urine tox that was positive for amphetamine. Patient is on Ativan and Neurontin. 4. Hyperlipidemia, on Pravachol. Subjective Subjective Comfortable in NAD.VSS. No new events on iv Abx Objective Last 24 Hour Vital Signs Date Time Temp Pulse Resp B/P (MAP) Pulse Ox O2 Delivery O2 Flow Rate FiO2 03/25/20 09:00 Room Air 03/25/20 08:55 78 132/79 03/25/20 08:00 98.1 78 18 132/79 (96) 98 03/25/20 04:00 97.2 73 18 118/75 (89) 95 03/25/20 00:00 97.2 79 18 111/54 (73) 98 03/24/20 21:36 76 18 99 Nasal Cannula 2.0 28 78 20 98 03/24/20 21:00 Room Air 03/24/20 20:00 97.3 78 18 150/79 (102) 95 03/24/20 16:00 97.3 71 18 153/75 (101) 97 03/24/20 12:00 97.1 58 20 112/60 (77) 97 Intake and Output 03/24/20 03/25/20 19:00 07:00 Intake Total 320 ml 800 ml Output Total 1300 ml Balance -980 ml 800 ml Intake Oral 320 ml 800 ml Output Urine Total 1300 ml Objective HEAD AND NECK: No JVD. LUNGS: Clear. CARDIOVASCULAR: Regular S1 and S2 with no gallop. ABDOMEN: Soft. EXTREMITIES: No pitting edema. Gregory Wu MD Mar 25, 2020 10:57
[2020-03-25] MEDS: cefTRIAXone 1 GM in D5W 55 ML IVPB SCH (11:47)
[2020-03-25] MEDS: Acetaminophen 650mg/20.3ml ORAL PRN (11:47)
[2020-03-25 12:00] VITALS: BP 105/71
--- NOTE | 2020-03-25 13:06 | NUR ---
SUBSTATION SUPERINTENDENT NOTES PT DISCHARGED HOME WITH HOME HEALTH, SPOKE WITH PT'S SON KENZIE HE WILL PICK PT UP IN 2 HOURS.INFORMED KENZIE OF THE SERVICES PT WILL RECEIVE. KENZIE AGREES WITH [facility] @ THIS TIME.
--- NOTE | 2020-03-25 14:45 | NUR ---
*-* INSURANCE *-* UPDATED CLINICALS AND REVIEWS HAVE BEEN FAXED TO: [facility]: DARYL REF [id number] P: [phone] F: [phone]
[2020-03-25] MEDS: Albuterol/Ipratropium 3ml neb HHN PRN (14:52)
[2020-03-25 16:00] VITALS: BP 133/80
[2020-03-25] MEDS ORDERED: NS 275ml ONE (16:15)
[2020-03-25] MEDS ORDERED: Tubing IV Secondary IV ONE (16:15)
--- NOTE | 2020-03-25 16:28 | NUR ---
*-*DISCHARGE PLANNING*-* PATIENT HAS BEEN REFERRED TO: [facility] P: [phone] Addendum: 03/25/20 at 1632 by REEMA MURRY CM *-*DISCHARGE PLANNING*-* PATIENT HAS BEEN REFERRED TO: [facility] P: [phone] S/W JAMES, INTAKE IS BUSY AT THE MOMENT, WILL CALL BACK AFTER REVIEW.
[2020-03-25] MEDS: Xarelto 10mg tab ORAL SCH (16:44)
--- NOTE | 2020-03-25 17:15 | NUR ---
NURSE NOTES: pt d/c, belongings verified and signed by pt , escorted to the front in wheel chair by TECHNOLOGY EDUCATION INSTRUCTOR in stable condition, no s/s of distress at room air
--- NOTE | 2020-03-25 17:30 | NUR ---
*-*DISCHARGE PLANNING*-* PATIENT HAS BEEN REFERRED TO: [facility] P: [phone] S/W ALCON, REQUESTED D.C ORDER AND COVID TEST . ~~~~~ FAXED D.C ORDER, COVID TEST UNAVAILABLE, WILL FOLLOW UP TOMORROW 03/26/2020~~~~~~~~~~~~~
--- NOTE | 2020-03-25 18:30 | NUR ---
NURSE NOTES: Pt was given her d/c papers and signed for them in the room at 1700, pt stopped by the nurses station and i asked to remove writs i.d band but pt refused. I noticed that pt left her packet at the station at 1830. Family was called to notify about pt leaving her D/c papers and did not Answer , no option for vice mail
--- NOTE | 2020-03-25 20:00 | NUR ---
NURSE NOTES: family was called again to notify about pt leaving her D/c papers and did not Answer , no option for vice mail
--- NOTE | 2020-03-25 23:16 | Psych Consult Progress Note ---
Psychiatry Progress Note Psychiatry Progress Note Subjective the pt is calm dec agitation Neurological/Psychiatric: Reports: anxiety, depressed, emotional problems Allergies: Coded Allergies: CODEINE (Verified Allergy, Unknown, 09/03/16) MORPHINE (Unverified Allergy, Unknown, 05/01/19) Objective Data Height (Feet): 5 Height (Inches): 0.00 Weight (Pounds): 214 General Appearance: WD/WN, no apparent distress, alert, obese Additional Comments: Alert and oriented times self, place. Mood is anxious. Affect is flat. Thought process is a paucity of thought content. Thought content, no suicidal or homicidal ideation. Cognition is impaired. Insight and judgment is impaired. Assessment/Plan Status: stable Assessment/Plan: ASSESSMENT: [place] I Acute encephalopathy most likely due to opiates and medical condition. Anxiety disorder. PLAN: 1. Continue Ativan 0.5 mg at bedtime. 2. Zyprexa as needed. Janice Shoemaker MD Mar 25, 2020 23:16
--- NOTE | 2020-03-26 00:45 | Progress Note ---
DATE: 03/25/2020 SUBJECTIVE: This is an 79-year-old female who came to the emergency room for having shortness of breath, acute bronchitis, and coronary artery disease. The patient's workup is negative. Cardiology consult was obtained. The patient is physically doing better. PHYSICAL EXAMINATION: GENERAL: More awake, alert, and comfortable. VITAL SIGNS: Blood pressure 105/71, pulse 77, no fever. CHEST: Bilateral decreased breath sounds. CARDIOVASCULAR: Regular rhythm. ABDOMEN: Soft. EXTREMITIES: CCE. NEUROLOGICAL: Generalized weakness. ASSESSMENT: 1. Acute bronchitis is resolved. 2. Atypical chest pain. 3. Hypertension. 4. Obesity. 5. Possible substance abuse. PLAN: We will DC antibiotic. Discharge home with p.o. antibiotics, p.o. Lasix, amiodarone. Continue Xarelto and metoprolol. Recommended followup as outpatient with primary care. Hayder Jim M.D. DR: Luke JOB#: [id number] CC:
--- NOTE | 2020-03-26 10:20 | Discharge Summary ---
Discharge Summary Discharge Summary _ DATE OF ADMISSION: DATE OF DISCHARGE: 03/25/2020 DISCHARGED BY: REASON FOR ADMISSION: 79 years old female with past medical history of atrial fibrillation, COPD, congestive heart failure, osteoporosis, was brought by paramedics due to altered mental status, possible drug overdose. Patient received Narcan prior to arrival. Upon evaluation patient was afebrile, pulse oximetry was stable on room air. Laboratory work-up revealed no leukocytosis, stable hemoglobin, hematocrit and platelet count. Urinalysis revealed no evidence of urinary tract infection . Urine toxicology screen was positive for amphetamine . Chemistry revealed stable electrolytes. BUN 14, creatinine 1.1. AST 31 ALT 20 . Troponin negative , ECG with atrial fibrillation with controlled response. ABG on room air was table, no hypercapnia. Chest x-ray demonstrated no acute cardiopulmonary pathology. CT of the head revealed no acute intracranial pathology. Mild chronic senescent findings noted. In emergency department patient received Narcan. Patient started on the IV fluids. Patient subsequently admitted for further management CONSULTANTS: switch technician Dr. Melendrez psychiatrist [facility]: Patient admitted and provided with IV fluids. Supplemental oxygen was on board as needed to keep pulse oximetry above 92%. Echocardiogram demonstrated preserved ejection fraction of 65 to 70%. Mild left ventricular hypertrophy. Moderate to severe left atrial enlargement and moderate right atrial enlargement. Moderate aortic insufficiency. Moderate tricuspid regurgitation. Telemetry showed episodes of atrial fibrillation with bradycardia down to 30s. Anticoagulation with Xarelto continued. Amiodarone frequency decreased to once daily, and metoprolol dose was decreased as per switch technician recommendation. Heart rate stabilized. Serial troponin were negative. EKG revealed no acute ischemic changes. Patient was ruled out for acute myocardial infarction. Medical treatment for congestive heart failure with beta blockage and diuretic continued. Statin continued. Altered mental status was likely due to substance abuse /amphetamine. Neurontin was discontinued as a possible contributor to altered mental status as well. Patient was working with physical therapist. Mental status improved to baseline . Patient remained afebrile. No leukocytosis. Blood culture came back negative. Per psychiatrist patient had acute encephalopathy most likely due to drug abuse. Anxiolytic provided as needed. Patient also started on Zyprexa. Patient clinically stabilized and was ready for discharge home with home health services. FINAL DIAGNOSES: Acute encephalopathy, most likely due to substance abuse/amphetamine Atrial fibrillation with episodes of bradycardia-resolved Congestive heart failure Atypical chest pain Hyperlipidemia Hypertension Obesity Anxiety disorder DISCHARGE MEDICATIONS: See Medication Reconciliation list. DISCHARGE INSTRUCTIONS: Patient was discharged to the halfway facility. Follow up with medical doctor at the facility. I have been assigned to dictate discharge summary for this account. I was not involved in the patient's management. Lorie Manuel NP Mar 26, 2020 10:20
--- NOTE | 2020-03-26 10:30 | NUR ---
*-*DISCHARGE PLANNED*-* [facility] P: [phone] S/W LEONORA, WILL SERVICE PATIENT UPON DISCHARGE.
--- NOTE | 2020-03-26 16:11 | NUR ---
*-* INSURANCE *-* DISCHARGE SUMMARY HAS BEEN FAXED TO: [facility]: DARYL REF [id number] P: [phone] F: [phone]
== END 2020-03-25 17:10 | disposition home health service (06) | DRG 776 ==
LOC: EDBD 19:33 → EMR 20:45 → 2E 23:00 → EDBEDREQTM 23:25 → EDBEDREQ 23:25 → EDBEDREQSVC 23:25 → EDBEDREQ 23:32 → 3E 03-20 22:39
DX: F15.10 Other stimulant abuse, uncomplicated (principal); G92 Toxic encephalopathy; I48.91 Unspecified atrial fibrillation; E66.9 Obesity, unspecified; Z68.41 Body mass index [BMI] 40.0-44.9, adult; Z88.6 Allergy status to analgesic agent; Z79.01 Long term (current) use of anticoagulants; R00.1 Bradycardia, unspecified; R07.89 Other chest pain; E78.5 Hyperlipidemia, unspecified; I11.0 Hypertensive heart disease with heart failure; F41.9 Anxiety disorder, unspecified; F03.90 Unspecified dementia, unspecified severity, without behavioral disturbance, psychotic disturbance, mood disturbance, and anxiety; I25.10 Atherosclerotic heart disease of native coronary artery without angina pectoris; I24.9 Acute ischemic heart disease, unspecified; J20.9 Acute bronchitis, unspecified
CPT/HCPCS: 36415; 36600; 70450; 71045; 80053; 80307; 81003; 82550; 82553; 82803; 83605; 83735; 84100; 84484; 85025; 87040; 93005; 93306; 94640; 96365; 96368; 96375; 99285; J2310; J7030; J7620

== ENCOUNTER 2020-04-07 19:52 | Inpatient (IN) | payer MEDICARE, MEDICAID ==
[~2020-04-07] VITALS: Ht 162.6 cm; Wt 97.6 kg
[2020-04-07 19:55] VITALS: BP 149/85
--- NOTE | 2020-04-07 19:55 | NUR ---
ED Nurse Note: Patient brought in by ambulance with complaints of increased dizziness but no new onset of pain. Patient is A&Ox4, able to speak macedonian and reports weakness with ambulation. Will continue to monitor.
--- NOTE | 2020-04-07 20:27 | NUR ---
ED Nurse Note: IV started at right lateral AC, blood drawn and taken to lab. Will continue to monitor patient for urine collection.
[2020-04-07 20:34] LABS: BASOPHILS % (AUTO) 0.9 % (0.0-2.0); EOSINOPHILS % (AUTO) 0.6 % (0.0-3.0); HEMATOCRIT 42.7 % (37.0-47.0); HEMOGLOBIN 12.7 G/DL (12.0-16.0); LYMPHOCYTES % (AUTO) 27.6 % (20.0-45.0); MEAN CORPUSCULAR VOLUME 78 FL (80-99); MONOCYTES % (AUTO) 6.4 % (1.0-10.0); NEUTROPHILS % (AUTO) 64.6 % (45.0-75.0); PLATELET COUNT 232 K/UL (150-450); RED CELL DISTRIBUTION WIDTH 18.2 % (11.6-14.8); WHITE BLOOD COUNT 8.5 K/UL (4.8-10.8)
--- NOTE | 2020-04-07 20:36 | Emergency Room Report ---
History of Present Illness General Chief Complaint: Dyspnea/Respdistress Source: Patient Present Illness HPI 79-year-old female presents for shortness of breath. brought in by EMS from home. History of COPD and CHF. States she feels short of breath. Denies chest pain. Denies fevers or chills. Denies cough. States she is on home oxygen. Admits to smoking. No other aggravating relieving factors. Denies any other associated symptoms Allergies: Coded Allergies: CODEINE (Verified Allergy, Unknown, 09/03/16) MORPHINE (Unverified Allergy, Unknown, 05/01/19) COVID-19 Screening Contact w/high risk pt: No Recent Travel to affected area: No Experienced COVID-19 symptoms?: No COVID-19 Testing performed VENEER GLUE JOINTER FEEDBACK: No Patient History Past Medical History: HTN, CHF, AFib, asthma, COPD Past Surgical History: none Pertinent Family History: none Social History: Denies: smoking, alcohol use, drug use Now: No Immunizations: UTD Reviewed Nursing Documentation: PMH: Agreed; PSxH: Agreed Nursing Documentation-PMH Hx Cardiac Problems: Yes - CHF, A Fib Hx Hypertension: Yes Hx Asthma: Yes Hx COPD: Yes Hx Cancer: No Hx Gastrointestinal Problems: Yes Hx Neurological Problems: No Review of Systems All Other Systems: negative except mentioned in HPI Physical Exam Vital Signs Date Time Temp Pulse Resp B/P (MAP) Pulse Ox O2 Delivery O2 Flow Rate FiO2 04/07/20 19:55 75 20 Room Air 04/07/20 19:55 98.1 149/85 (106) 97 Sp02 EP Interpretation: reviewed, normal General Appearance: no apparent distress, alert, GCS 15, non-toxic, obese Head: normocephalic, atraumatic Eyes: bilateral eye normal inspection, bilateral eye PERRL ENT: hearing grossly normal, normal pharynx, no angioedema, normal voice Neck: full range of motion, supple/symm/no masses Respiratory: chest non-tender, lungs clear, normal breath sounds, speaking full sentences Cardiovascular #1: regular rate, rhythm, no edema Cardiovascular #2: 2+ carotid (R), 2+ carotid (L), 2+ radial (R), 2+ radial (L) , 2+ dorsalis pedis (R), 2+ dorsalis pedis (L) Gastrointestinal: normal bowel sounds, non tender, soft, non-distended, no guarding, no rebound Rectal: deferred Genitourinary: normal inspection, no CVA tenderness Musculoskeletal: back normal, normal range of motion, gait/station normal, non- tender Neurologic: alert, motor strength/tone normal, oriented x3, sensory intact, responsive, speech normal Psychiatric: judgement/insight normal, memory normal, mood/affect normal, no suicidal/homicidal ideation Reflexes: 3+ bicep (R), 3+ bicep (L), 3+ tricep (R), 3+ tricep (L), 3+ knee (R) , 3+ knee (L) Skin: other - See nursing skin notes Lymphatic: no adenopathy Medical Decision Making Diagnostic Impression: Primary Impression: CHF (congestive heart failure) Qualified Codes: I50.9 - Heart failure, unspecified Additional Impressions: COPD (chronic obstructive pulmonary disease) Qualified Codes: J44.9 - Chronic obstructive pulmonary disease, unspecified Dyspnea Qualified Codes: R06.00 - Dyspnea, unspecified ER Course Hospital Course 79-year-old female presents ED complaining of shortness of breath, history of COPD and CHF Differential diagnoses include: PR/unstable angina, contusion, muscle strain, PTX, rib fracture Clinical course Patient placed on stretcher. on hall monitor. After initial history and physical I ordered labs, EKG, chest x-ray, ABG labs reviewed- no leukocytosis, hemoglobin/hematocrit stable, electrolytes ok, troponins negative, BNP elevated. Utox + amphetamines and opiates ABG -no significant hypercapnia or acidosis. O2 sat somewhat low but improving on oxygen. Patient showing no signs of respiratory distress. EKG - afib no acute ischemic changes interpreted by me Chest x-ray- pulmonary congestion Case discussed with Dr. Jim and he agreed to accept the patient to his service for further care and support I. I feel this is a highly complex case requiring extensive working including EKG/Rhythm strip, Xray/CT/US, Blood/urine lab work, repeat exams while in ED, and administration of strong opiates/narcotics for pain control, admission to hospital or close patient follow up. Diagnosis - CHF exacerbation, COPD, dyspnea admitted to telemetry in serious condition Labs Test 04/07/20 20:07 04/07/20 20:18 04/07/20 21:15 Arterial Blood pH 7.371 (7.350-7.450) Arterial Blood Partial Pressure CO2 50.6 mmHg (35.0-45.0) Arterial Blood Partial Pressure O2 43.8 mmHg (75.0-100.0) Arterial Blood HCO3 28.7 mmol/L (22.0-26.0) Arterial Blood Oxygen Saturation 79.6 % (95-100) Arterial Blood Base Excess 2.6 (-2-2) Jam Test Positive White Blood Count 8.5 K/UL (4.8-10.8) Red Blood Count 5.50 M/UL (4.20-5.40) Hemoglobin 12.7 G/DL (12.0-16.0) Hematocrit 42.7 % (37.0-47.0) Mean Corpuscular Volume 78 FL (80-99) Mean Corpuscular Hemoglobin 23.0 PG (27.0-31.0) Mean Corpuscular Hemoglobin Concent 29.7 G/DL (32.0-36.0) Red Cell Distribution Width 18.2 % (11.6-14.8) Platelet Count 232 K/UL (150-450) Mean Platelet Volume 7.9 FL (6.5-10.1) Neutrophils (%) (Auto) 64.6 % (45.0-75.0) Lymphocytes (%) (Auto) 27.6 % (20.0-45.0) Monocytes (%) (Auto) 6.4 % (1.0-10.0) Eosinophils (%) (Auto) 0.6 % (0.0-3.0) Basophils (%) (Auto) 0.9 % (0.0-2.0) Sodium Level 142 MMOL/L (136-145) Potassium Level 4.0 MMOL/L (3.5-5.1) Chloride Level 105 MMOL/L (98-107) Carbon Dioxide Level 30 MMOL/L (21-32) Anion Gap 7 mmol/L (5-15) Blood Urea Nitrogen 20 mg/dL (7-18) Creatinine 1.1 MG/DL (0.55-1.30) Estimat Glomerular Filtration Rate 47.8 mL/min (>60) Glucose Level 90 MG/DL (74-106) Calcium Level 9.2 MG/DL (8.5-10.1) Total Bilirubin 0.4 MG/DL (0.2-1.0) Aspartate Amino Transf (AST/SGOT) 33 U/L (15-37) Alanine Aminotransferase (ALT/SGPT) 19 U/L (12-78) Alkaline Phosphatase 99 U/L (46-116) Troponin I 0.000 ng/mL (0.000-0.056) Pro-B-Type Natriuretic Peptide 1503 pg/mL (0-125) Total Protein 8.1 G/DL (6.4-8.2) Albumin 3.5 G/DL (3.4-5.0) Globulin 4.6 g/dL Albumin/Globulin Ratio 0.8 (1.0-2.7) Urine Opiates Screen Positive (NEGATIVE) Urine Barbiturates Screen Negative (NEGATIVE) Phencyclidine (PCP) Screen Negative (NEGATIVE) Urine Amphetamines Screen Positive (NEGATIVE) Urine Benzodiazepines Screen Negative (NEGATIVE) Urine Cocaine Screen Negative (NEGATIVE) Urine Marijuana (THC) Screen Negative (NEGATIVE) EKG Diagnostic Results Rate: normal Rhythm: other - afib ST Segments: no acute changes Rhythm Strip Diag. Results EP Interpretation: yes Rhythm: no PVC's, no ectopy Chest X-Ray Diagnostic Results Chest X-Ray Diagnostic Results : Chest X-Ray Ordered: Yes # of Views/Limited/Complete: 1 View Indication: Shortness of Breath Interpretation: no consolidation, no pneumothorax, other - Cardiomegaly Impression: No acute disease - CHF Electronically Signed by: Electronically signed by Keo Corona MD Last Vital Signs Date Time Temp Pulse Resp B/P (MAP) Pulse Ox O2 Delivery O2 Flow Rate FiO2 04/07/20 19:55 98.1 87 20 149/85 97 Room Air Status: improved Disposition: ADMITTED INPATIENT Condition: Serious Referrals: NOT CHOSEN IPA/,REFERRING (PCP) Keo Corona MD Apr 07, 2020 20:36
--- NOTE | 2020-04-07 20:44 | Diagnostic Imaging Report ---
EXAM: XR Chest, 1 View CLINICAL HISTORY: SOB TECHNIQUE: Frontal view of the chest. COMPARISON: 03/23/2020 FINDINGS: Lungs: Unremarkable. No consolidation. Pleural space: Unremarkable. No pneumothorax. Heart: Moderate cardiomegaly. Mediastinum: Unremarkable. Bones/joints: Unremarkable. IMPRESSION: Moderate cardiomegaly. Otherwise unremarkable chest with no acute superimposed pathology
[2020-04-07 20:56] LABS: ANION GAP 7 mmol/L (5-15); BLOOD UREA NITROGEN 20 mg/dL (7-18); CALCIUM 9.2 MG/DL (8.5-10.1); CARBON DIOXIDE 30 MMOL/L (21-32); CHLORIDE 105 MMOL/L (98-107); CREATININE 1.1 MG/DL (0.55-1.30); SODIUM 142 MMOL/L (136-145)
[2020-04-07 21:09] LABS: ALANINE AMINOTRANSFERASE 19 U/L (12-78); ALBUMIN 3.5 G/DL (3.4-5.0); ALBUMIN/GLOBULIN RATIO 0.8 (1.0-2.7); ALKALINE PHOSPHATASE 99 U/L (46-116); ASPARTATE AMINO TRANSFERASE 33 U/L (15-37); BILIRUBIN,TOTAL 0.4 MG/DL (0.2-1.0)
--- NOTE | 2020-04-07 21:33 | NUR ---
ED Nurse Note: Called to give report, spoke with Graciela Sweeney RN unavailable.
--- NOTE | 2020-04-07 21:57 | NUR ---
ED Nurse Note: Report rendered to Graciela EDWARDS.
--- NOTE | 2020-04-07 22:03 | NUR ---
ED Nurse Note: Patient transported to floor without incident.
[2020-04-07 23:00] VITALS: BP 137/92
[2020-04-07] MEDS ORDERED: Albuterol/Ipratropium 3ml neb HHN PRN (23:00)
[2020-04-07] MEDS ORDERED: Nitroglycerin Subl 0.4mg tab SL PRN (23:00)
--- NOTE | 2020-04-07 23:10 | NUR ---
NURSE NOTES: Received patient report from VANI Chance RN. Patient was transported from ER to the floor without incidents. She is AO x 4. She shows no signs of distress or pain at the time. She is still complaining of shortness of breath even though she is saturating at 94%, will ask for oxygen. IV is infiltrated will start a new one. Bed is in the lowest position, call light is within reach, side rails up x3, bed alarm on. Will continue plan of care.
[2020-04-08] VITALS: BP 160/72
[2020-04-08] MEDS: cefTRIAXone 1 GM in D5W 55 ML IVPB SCH (00:34)
[2020-04-08] MEDS ORDERED: LORazepam 0.5mg tab ORAL SCH (01:00)
[2020-04-08 04:00] VITALS: BP 160/75
--- NOTE | 2020-04-08 07:30 | NUR ---
NURSE NOTES: Received pt from JERRY Owens, pt is awake and alert, pt has NC 2LMP, pt is on continues heart monitoring, pt has intact iv access LH 24G SL. Pt is eating breakfast by observation. all needs attended, bed is locked and is in the lowest position, call light within easy reach. will continue to monitor.
--- NOTE | 2020-04-08 07:34 | NUR ---
HAND-OFF: Report given to JERRY Stein. Patient shows no signs of distress or pain at the time. Endorsed plan of care.
[2020-04-08 07:59] VITALS: BP 145/92
[2020-04-08] MEDS: Solu-MEDROL 40mg Inj IVP SCH ×2 (08:48→17:08)
[2020-04-08] MEDS: Amiodarone 200mg tab ORAL SCH ×2 (08:48→21:27)
[2020-04-08] MEDS: Xarelto 15mg tab ORAL SCH (08:48)
[2020-04-08] MEDS: Metoprolol Succinate XL 50mg tab ORAL SCH (08:48)
[2020-04-08 12:00] VITALS: BP 148/90
--- NOTE | 2020-04-08 12:30 | Consultation ---
DATE OF CONSULTATION: 04/08/2020 PULMONARY CONSULTATION CONSULTING PHYSICIAN: Hugo Ortiz MD HISTORY OF PRESENT ILLNESS: This is an 79-year-old female who came to the hospital with shortness of breath. She lives at home and has a history of COPD and CHF. She denies any chest pain. There was no fever or chills reported. No cough, however, she reports shortness of breath. She is on home oxygen and she is active smoker. The patient is admitted to the hospital for further management and care. PAST MEDICAL HISTORY: CHF, hypertension, atrial fibrillation, asthma, and COPD. PAST SURGICAL HISTORY: None reported. HOME MEDICATIONS: Include Lasix, Neurontin, Ativan, metoprolol, Protonix, pravastatin, and Xarelto. REVIEW OF SYSTEMS: Unreliable. PHYSICAL EXAMINATION: GENERAL: Reveals an 79-year-old female. VITAL SIGNS: Blood pressure 140/90, heart rate 75, respirations . She is afebrile. O2 saturation is 97% on 2 L of oxygen. Weight 81 kg estimated by staff. HEENT: Unremarkable. LUNGS: Shows decreased breath sounds bilaterally. HEART: Normal heart sounds. ABDOMEN: Soft. EXTREMITIES: There is no edema. LABORATORY DATA: Lab testing shows normal CBC and BMP. Troponin is negative. Toxicology is positive for amphetamines and opiates. X-ray chest was obtained, which shows cardiomegaly. IMPRESSION: 1. Decompensated congestive heart failure. 2. COPD exacerbation. 3. Amphetamine and opiate use. 4. Hypertension. 5. Active smoker. DISCUSSION: Admit to the hospital. We will continue steroids, oxygen, and pulmonary hygiene. We will decrease Solu-Medrol to 20 mg IV twice a day. Antibiotics per ID. We will follow as pulmonary supervisor home energy consultant. Rate control per Cardiology and use of amiodarone. Pain treatment as needed. The patient has not been tested for COVID-19. We will order. Hugo Ortiz M.D. DR: NENITA JOB#: [id number] CC:
--- NOTE | 2020-04-08 13:51 | NUR ---
CASE MANAGEMENT:REVIEW 79YR OLD FEMALE VIKY FROM HOME PMH: COPD SI:CHF. COPD. DYSPNEA 98.1 75 20 149/85 97% ON RA BNP+1503 URINE(+) AMPHETAMINES AND OPIATES) IS: CHEST XRAY BLOOD CX : TO TELEMETRY UNIT IS: NEURONTIN PO QHS IV ROCEPHIN Q24 ATIVAN PO QHS IV SOLUMEDROL BID AMIODARONE PO Q12 LASIX PO BID PROTONIX PO QD TOPROL XL PO QD XARELTO PO QD Addendum: 04/08/20 at 1404 by CHIARA DUDLEYN DROP FORGE OPERATOR ABGl PCO2-50.6 PO2-43.8 HCO3+28.7 O2 SAT-79.6
--- NOTE | 2020-04-08 14:07 | NUR ---
INSURANCE CLINICALS AND REVIEW FAXED TO [facility] F: [phone] AUTH #[id number]
[2020-04-08] MEDS ORDERED: LORazepam 1mg tab ORAL PRN (15:00)
[2020-04-08 16:00] VITALS: BP 151/69
--- NOTE | 2020-04-08 16:44 | NUR ---
NURSE NOTES: pt refused SEROQUEL and asked to bed time, Dr Shoemaker is aware and she will F/U, Seroquel is wasted in med room with witness TG BLUM. will continue to monitor.
--- NOTE | 2020-04-08 17:10 | NUR ---
NURSE NOTES: 20mg Solu Medrol wasted in med room.
--- NOTE | 2020-04-08 18:52 | NUR ---
NURSE NOTES: Dr Jim visited pt and is aware about pt asked Seroquel for bed time ordered Seroquel 50mg bed time and D/C Lorazepam bed time, he ordered only lorazepam PRN, noted and carried out.
--- NOTE | 2020-04-08 19:26 | NUR ---
HAND-OFF: Report given to JERRY Owens.pt is awake and stable. Endorsed plan of care.
--- NOTE | 2020-04-08 19:57 | NUR ---
NURSE NOTES: Received patient from JERRY Stein. Patient shows no signs of distress or pain at the time. She is AO x4. IV site is intact, patent and flushed. There are no signs of erythema,infiltration, or bleeding. Bed is in the lowest position, call light is within reach, and side rails up x 3. Will continue plan of care.
[2020-04-08 20:00] VITALS: BP 141/62
[2020-04-09] VITALS: BP 155/98
[2020-04-09] MEDS: cefTRIAXone 1 GM in D5W 55 ML IVPB SCH (01:49)
[2020-04-09 04:00] VITALS: BP 132/78
--- NOTE | 2020-04-09 05:00 | Progress Note ---
DATE: 04/08/2020 SUBJECTIVE: This is an elderly 79-year-old female who came yesterday for having altered mental state, short of breath, and congestive heart failure. The patient is currently in bed. Pulmonary consult was obtained. Cardiology consult was also obtained. The patient is sleeping was given Ativan. PHYSICAL EXAMINATION: VITAL SIGNS: Blood pressure is 130/70, pulse 74, respirations 18, no fever. HEENT: NAD. CHEST: Bilaterally clear. CARDIOVASCULAR: Regular rhythm. No gallop. No murmur. ABDOMEN: Soft, positive bowel sounds, nontender. EXTREMITIES: No edema. GENITOURINARY: Deferred. ASSESSMENT: 1. Short of breath. 2. Acute COPD. 3. CHF. 4. Hypertension. 5. Anxiety. 6. Depression. PLAN: We will admit her on a tele bed. Consider Pulmonary and Cardiology consult. Continue bronchodilator treatments. She is on Lasix, IV Solu-Medrol, Ativan p.r.n. Continue psychotropic behavior therapy, and at this time, I consider also Psych consult. Hayder Jim M.D. DR: KIMBERLY JOB#: [id number] CC:
--- NOTE | 2020-04-09 07:30 | NUR ---
NURSE NOTES: Received report from JERRY Owens. AAO x4, no complaints of pain or discomfort. No signs of distress. Breathing regular, shallow at rest on 2L NC. L hand PIV 24 g saline locked, no redness or infiltration. Bed low and locked, cane at bedside, call light in reach, bed alarm on, fall education provided. Will continue to monitor.
--- NOTE | 2020-04-09 07:39 | NUR ---
HAND-OFF: Report given to JERRY Howell. Patient shows no signs of distress or pain at the time. Endorsed plan of care.
[2020-04-09 08:00] VITALS: BP 121/61
[2020-04-09] MEDS: Xarelto 15mg tab ORAL SCH (08:51)
[2020-04-09] MEDS: Amiodarone 200mg tab ORAL SCH ×2 (08:51→20:41)
[2020-04-09] MEDS: Metoprolol Succinate XL 50mg tab ORAL SCH (08:51)
[2020-04-09] MEDS: Solu-MEDROL 40mg Inj IVP SCH ×2 (08:52→17:09)
--- NOTE | 2020-04-09 11:00 | Pulmonology Progress Note ---
Subjective Interval Events: None new reported Constitutional: Reports: no symptoms HEENT: Repors: no symptoms Respiratory: Reports: no symptoms Cardiovascular: Reports: no symptoms Gastrointestinal/Abdominal: Reports: no symptoms Allergies: Coded Allergies: CODEINE (Verified Allergy, Unknown, 09/03/16) MORPHINE (Unverified Allergy, Unknown, 05/01/19) Objective Last 24 Hour Vital Signs Date Time Temp Pulse Resp B/P (MAP) Pulse Ox O2 Delivery O2 Flow Rate FiO2 04/09/20 09:00 Nasal Cannula 2.0 04/09/20 08:51 74 121/61 04/09/20 08:00 71 04/09/20 08:00 97.0 71 20 121/61 (81) 95 04/09/20 04:00 97.0 69 19 132/78 (96) 98 04/09/20 04:00 76 04/09/20 00:00 97.5 66 18 155/98 (117) 93 04/09/20 00:00 68 04/08/20 21:00 Nasal Cannula 2.0 04/08/20 20:07 72 20 99 Nasal Cannula 2.0 28 04/08/20 20:00 71 04/08/20 20:00 97.3 74 19 141/62 (88) 98 04/08/20 16:00 97.9 69 19 151/69 (96) 100 04/08/20 15:13 72 04/08/20 12:00 99.5 68 20 148/90 (109) 100 04/08/20 11:25 66 Intake and Output 04/08/20 04/09/20 19:00 07:00 Intake Total 720 ml Output Total 1400 ml Balance 720 ml -1400 ml Intake Oral 720 ml Output Urine Total 1400 ml # Voids 4 # Bowel Movements 2 1 General Appearance: no acute distress HEENT: normocephalic Respiratory: chest wall non-tender, lungs clear Cardiovascular: normal peripheral pulses, normal rate Microbiology Date/Time Source Procedure Growth Status 04/07/20 20:18 Blood Not Otherwise Specified Blood Culture - Preliminary NO GROWTH AFTER 24 HOURS Resulted 04/07/20 20:08 Blood Not Otherwise Specified Blood Culture - Preliminary NO GROWTH AFTER 24 HOURS Resulted Current Medications Medications (Trade) Dose Ordered Sig/Hoa Route PRN Reason Start Time Stop Time Status Last Admin Dose Admin Acetaminophen (Tylenol) 650 mg Q4H PRN ORAL Mild Pain (Pain Scale 1-3) 04/07/20 23:00 05/07/20 22:59 04/08/20 08:49 Albuterol/ Ipratropium (Combivent Respimat) 1 puff Q4H PRN INH Shortness of Breath 04/08/20 12:00 05/08/20 11:59 04/09/20 06:36 Amiodarone HCl (Cordarone) 200 mg EVERY 12 HOURS ORAL 04/08/20 09:00 07/07/20 08:59 04/09/20 08:51 Ceftriaxone Sodium 1 gm/ Dextrose 55 ml @ 110 mls/hr Q24H IVPB 04/08/20 01:00 04/15/20 00:59 04/09/20 01:49 Furosemide (Lasix) 20 mg TWICE A DAY ORAL 04/08/20 09:00 05/08/20 08:59 04/09/20 08:51 Gabapentin (Neurontin) 600 mg QHS ORAL 04/09/20 21:00 05/08/20 20:59 UNV Lorazepam (Ativan) 1 mg Q6H PRN ORAL ANXIETY 04/09/20 23:00 04/16/20 22:59 Methylprednisolone Sodium Succinate (Solu-MEDROL) 20 mg BID IVP 04/08/20 09:00 07/07/20 08:59 04/09/20 08:52 Metoprolol Succinate (Toprol XL) 50 mg DAILY ORAL 04/08/20 09:00 07/07/20 08:59 04/09/20 08:51 Nitroglycerin (Ntg) 0.4 mg NEEDED PRN SL CHEST PAIN 04/07/20 23:00 05/07/20 22:59 Pantoprazole (Protonix) 15 mg DAILY ORAL 04/08/20 09:00 05/08/20 08:59 04/09/20 08:51 Pravastatin Sodium (Pravachol) 40 mg BEDTIME ORAL 04/08/20 21:00 05/08/20 20:59 04/08/20 21:27 Quetiapine Fumarate (SEROqueL) 50 mg QHS ORAL 04/08/20 21:00 05/24/20 08:59 04/08/20 21:26 Rivaroxaban (Xarelto) 15 mg DAILY ORAL 04/08/20 09:00 07/07/20 08:59 04/09/20 08:51 Assessment/Plan Assessment/Plan IMPRESSION: 1. Decompensated congestive heart failure. 2. COPD exacerbation. 3. Amphetamine and opiate use. 4. Hypertension. 5. Active smoker. DISCUSSION: Continue steroids, oxygen, and pulmonary hygiene. Now on Solu- Medrol to 20 mg IV twice a day. Antibiotics per ID. I will follow as pulmonary technology sales consultant. Rate control per Cardiology and use of amiodarone. Pain treatment as needed. Await COVID 19 pcr Shayna Adames Omar Syed MD Apr 09, 2020 11:00
--- NOTE | 2020-04-09 11:17 | NUR ---
*-* INSURANCE *-* ALL CLINICALS AND REVIEW HAVE BEEN FAXED TO [facility] AUTH #[id number] F: [phone]
[2020-04-09 12:00] VITALS: BP 141/64
--- NOTE | 2020-04-09 12:50 | NUR ---
NURSE NOTES: Patient was transferred to room 409-[address] Hernán hernandez. Received report from JERRY Thomas. patient a&ox4, verbally responsive. no respiratory distress noted on 2L via NC. no pain at this time. IV on LH 24 intact. checked and counted belongings with patient. refused count money. documented with verifying JERRY Ricci charge nurse. contact and droplet isolation for PUI COVID. result pending. ambulate with cane and assist. fall risk. yellow socks on. bed in the lowest position and locked. call light within reach. will continue to provide plan of care.
--- NOTE | 2020-04-09 12:50 | NUR ---
NURSE NOTES: Patient transfered from 2E 210 to 4E 409-[address] Jim orders. Patient AAO x4, hemodynamically stable, breathing regular and unlabored on 2L NC. stave log ripsaw operator removed. Left hand IV 24 g saline locked, patent, no redness or infiltration. Skin intact. Belongings list acknowledged by myself and JERRY Hawley. Patient refused to allow RNs to count money. automotive tire tester Keiry aware. Transfer orders completed. Chart left with RN. Patient is in stable condition.
[2020-04-09] MEDS ORDERED: Acetaminophen 650mg/20.3ml ORAL PRN (13:15)
[2020-04-09] MEDS ORDERED: Albuterol/Ipratropium 3ml neb HHN PRN (13:15)
--- NOTE | 2020-04-09 13:36 | NUR ---
CASE MANAGEMENT:REVIEW 04/09/20 SI: CHF. COPD EXACERBATION AMPHETAMINE AND OPIATE USE 97.5 76 18 141/64 98% ON 2L/NC IS: SOLUMEDROL Q12 IV ROCEPHIN Q24 TOPROL XL PO QD PROTONIX PO QD XARELTO PO QD : TRANSFER FROM TELEMETRY TO [facility]
[2020-04-09 16:00] VITALS: BP 160/88
--- NOTE | 2020-04-09 16:44 | NUR ---
NURSE NOTES: patient c/o coughing also has had high blood pressure. 160/88 at 1600. notified and received order. norvasc 10mg tab PO daily. robitussin 10ml PO TID PRN for coughing. order noted and carried out.
[2020-04-09] MEDS ORDERED: guaiFENesin 100mg/5ml Liq ud ORAL PRN (16:45)
[2020-04-09] MEDS: guaiFENesin 100mg/5ml Liq ud ORAL PRN (17:09)
--- NOTE | 2020-04-09 19:34 | NUR ---
HAND-OFF: Report given to JERRY polanco.
--- NOTE | 2020-04-09 19:41 | NUR ---
NURSE NOTES: Received report from JERRY Hawley. Pt has coughing and sitting on the chair, AAO x 4, on NC 2L. Walking with assistance. Verbally responsive. Able to make needs known. PUI Covid precaution maintained. Bed locked, lowest position, alarm on, side rails up, call light within reach. Will continue to monitor.
[2020-04-09 20:00] VITALS: BP 141/70
[2020-04-09] MEDS ORDERED: LORazepam 1mg tab ORAL PRN ×3 (20:38→23:00)
--- NOTE | 2020-04-09 22:35 | Psych Consult Progress Note ---
Psychiatry Progress Note Psychiatry Progress Note Subjective dictated h and p not transcribed yet the pt is less agitated today Medications Current Medications Medications (Trade) Dose Ordered Sig/Hoa Route PRN Reason Start Time Stop Time Status Last Admin Dose Admin Acetaminophen (Tylenol) 650 mg Q4H PRN ORAL Mild Pain (Pain Scale 1-3) 04/09/20 15:00 05/07/20 22:59 04/09/20 17:09 Acetaminophen (Tylenol) 650 mg Q6H PRN ORAL PRNH/TEMP 04/09/20 13:15 05/09/20 13:14 Albuterol/ Ipratropium (Albuterol/ Ipratropium) 3 ml Q4HR PRN HHN Shortness of Breath 04/09/20 13:15 04/14/20 13:14 Albuterol/ Ipratropium (Combivent Respimat) 1 puff Q4H PRN INH Shortness of Breath 04/09/20 16:00 05/08/20 11:59 Amiodarone HCl (Cordarone) 200 mg EVERY 12 HOURS ORAL 04/09/20 21:00 07/07/20 20:59 04/09/20 20:41 Amlodipine Besylate (Norvasc) 10 mg DAILY ORAL 04/09/20 16:45 05/09/20 16:44 04/09/20 17:09 Ceftriaxone Sodium 1 gm/ Dextrose 55 ml @ 110 mls/hr Q24H IVPB 04/10/20 01:00 04/15/20 00:59 Furosemide (Lasix) 20 mg TWICE A DAY ORAL 04/09/20 18:00 05/08/20 17:59 04/09/20 17:08 Gabapentin (Neurontin) 600 mg QHS ORAL 04/09/20 21:00 05/08/20 20:59 04/09/20 20:41 Guaifenesin (Robitussin) 200 mg TIDPRN PRN ORAL For Cough 04/09/20 16:52 07/08/20 16:51 04/09/20 17:09 Ibuprofen (Motrin) 600 mg Q6H PRN ORAL MODERATE PAIN 04/09/20 13:30 05/09/20 13:14 Lorazepam (Ativan) 1 mg Q6H PRN ORAL ANXIETY 04/09/20 20:38 04/16/20 20:37 04/09/20 20:48 Methylprednisolone Sodium Succinate (Solu-MEDROL) 20 mg BID IVP 04/09/20 18:00 07/07/20 17:59 04/09/20 17:09 Metoprolol Succinate (Toprol XL) 50 mg DAILY ORAL 04/10/20 09:00 07/09/20 08:59 Nitroglycerin (Ntg) 0.4 mg NEEDED PRN SL CHEST PAIN 04/09/20 23:00 05/07/20 22:59 Pantoprazole (Protonix) 15 mg DAILY ORAL 04/10/20 09:00 05/10/20 08:59 Pravastatin Sodium (Pravachol) 40 mg BEDTIME ORAL 04/09/20 21:00 05/08/20 20:59 04/09/20 20:41 Quetiapine Fumarate (SEROqueL) 50 mg QHS ORAL 04/09/20 21:00 05/24/20 08:59 04/09/20 21:50 Rivaroxaban (Xarelto) 15 mg DAILY ORAL 04/10/20 09:00 07/09/20 08:59 Neurological/Psychiatric: Reports: anxiety, depressed, emotional problems Allergies: Coded Allergies: CODEINE (Verified Allergy, Unknown, 09/03/16) MORPHINE (Unverified Allergy, Unknown, 05/01/19) Objective Data Height (Feet): 5 Height (Inches): 4.00 Weight (Pounds): 180 General Appearance: alert, agitated, obese, alert oriented x3 Behavior Mannerisms: good eye contact Mental Status Exam - Mood: irritable, anxious Mental Status Exam - Thought P: illogical Mental Status Exam - Suicidal: not present Assessment/Plan Problem List: (1) Anxiety ICD Codes: F41.9 - Anxiety disorder, unspecified SNOMED: 09310746 [place] I: dementia Assessment/Plan: cont seroquel rock nurse Janice Shoemaker MD Apr 09, 2020 22:35
[2020-04-09] MEDS ORDERED: Nitroglycerin Subl 0.4mg tab SL PRN (23:00)
[2020-04-10] VITALS: BP 138/76
--- NOTE | 2020-04-10 00:30 | NUR ---
NURSE NOTES: Pt c/o SOB and O2 sat 94% noted. Applied simple mask with 5L. O2 sat 97% now.
[2020-04-10] MEDS ORDERED: cefTRIAXone 1 GM in D5W 55 ML IVPB SCH (01:00)
[2020-04-10 04:00] VITALS: BP 147/80
--- NOTE | 2020-04-10 06:45 | Consultation ---
DATE OF CONSULTATION: 04/08/2020 HISTORY OF PRESENT ILLNESS: This is an 79-year-old female with a history of dementia and anxiety disorder, who has been admitted to the hospital for medical stabilization. The patient at [facility] in the past month. Has been treated for medical complication. She is returning for possible COVID as well as difficulty breathing. During the examination, the patient was hard of hearing. She was screaming, yelling, irritable, asking for . The patient also insists that she needs to take 200 mg of Seroquel at night. Upon screaming that she wants . PAST PSYCHIATRIC HISTORY: Anxiety disorder, dementia. PAST MEDICAL HISTORY: CHF, hypertension, atrial fibrillation, asthma, COPD. ALLERGIES: Codeine and morphine. SUBSTANCE ABUSE HISTORY: No known history of illicit drug use or alcohol. MENTAL STATUS EXAMINATION: The patient is alert and oriented times self, place, situation, did not know the date. Mood is irritable. Affect is constricted. Congruent mood. Thought process is concrete. Thought content, no suicidal or homicidal ideation. Cognition is impaired. Insight and judgment, impaired. ASSESSMENT: [place] 1 Dementia with behavior disturbance. Anxiety disorder. [place] II Deferred. [place] III As above. [place] IV . [place] V . PLAN: 1. Seroquel 50 mg at bedtime. 2. Ativan p.r.n. 3. Provide the patient with reality orientation and supportive therapy. Janice Shoemaker M.D. DR: RICHA JOB#: [id number] CC:
--- NOTE | 2020-04-10 07:07 | NUR ---
HAND-OFF: Report given to Chandan/JERRY Cobian
--- NOTE | 2020-04-10 07:30 | NUR ---
NURSE NOTES: Received report from Mindy Vyas. Patient is AAO x4, ambulatory with unsteady gait, cane at bedside. RN instructed patient to use call light before ambulating. No complaints of pain or discomfort. No signs of distress. Breathing regular, on 2L NC. L hand IV 24 g saline locked, no redness or infiltration. Bed low and locked, cane at bedside, call light in reach, bed alarm on, fall education provided. Will continue to monitor.
[2020-04-10 08:00] VITALS: BP 126/74
[2020-04-10] MEDS: Solu-MEDROL 40mg Inj IVP SCH (08:35)
[2020-04-10] MEDS: Amiodarone 200mg tab ORAL SCH (08:35)
[2020-04-10] MEDS ORDERED: Metoprolol Succinate XL 50mg tab ORAL SCH (09:00)
[2020-04-10] MEDS ORDERED: Xarelto 15mg tab ORAL SCH (09:00)
[2020-04-10] MEDS: guaiFENesin 100mg/5ml Liq ud ORAL PRN (09:26)
--- NOTE | 2020-04-10 09:58 | Pulmonology Progress Note ---
Subjective Interval Events: None new reported Constitutional: Reports: no symptoms HEENT: Repors: no symptoms Respiratory: Reports: no symptoms Cardiovascular: Reports: no symptoms Gastrointestinal/Abdominal: Reports: no symptoms Allergies: Coded Allergies: CODEINE (Verified Allergy, Unknown, 09/03/16) MORPHINE (Unverified Allergy, Unknown, 05/01/19) Objective Last 24 Hour Vital Signs Date Time Temp Pulse Resp B/P (MAP) Pulse Ox O2 Delivery O2 Flow Rate FiO2 04/10/20 09:00 Nasal Cannula 2.0 04/10/20 08:37 75 126/74 04/10/20 08:35 75 126/74 04/10/20 08:00 97.0 75 19 126/74 (91) 99 04/10/20 04:00 97.9 72 23 147/80 (102) 97 04/10/20 00:00 98.2 76 22 138/76 (96) 97 04/09/20 21:00 Nasal Cannula 2.0 04/09/20 20:00 100 Nasal Cannula 2.0 28 04/09/20 20:00 74 20 100 Nasal Cannula 2.0 28 04/09/20 20:00 97.0 73 22 141/70 (93) 100 04/09/20 17:09 81 160/88 04/09/20 16:00 97.2 81 19 160/88 (112) 97 04/09/20 12:00 97.5 76 18 141/64 (89) 96 04/09/20 12:00 76 Intake and Output 04/09/20 04/10/20 19:00 07:00 Intake Total 720 ml Balance 720 ml Intake Oral 720 ml # Voids 4 2 # Bowel Movements 1 1 General Appearance: no acute distress HEENT: normocephalic Respiratory: chest wall non-tender, lungs clear Cardiovascular: normal peripheral pulses, normal rate Microbiology Date/Time Source Procedure Growth Status 04/07/20 20:18 Blood Not Otherwise Specified Blood Culture - Preliminary NO GROWTH AFTER 48 HOURS Resulted 04/07/20 20:08 Blood Not Otherwise Specified Blood Culture - Preliminary NO GROWTH AFTER 48 HOURS Resulted 04/08/20 11:58 Nasopharynx Coronavirus COVID-19 PCR (ROBE) - Final Complete Current Medications Medications (Trade) Dose Ordered Sig/Hoa Route PRN Reason Start Time Stop Time Status Last Admin Dose Admin Acetaminophen (Tylenol) 650 mg Q4H PRN ORAL Mild Pain (Pain Scale 1-3) 04/09/20 15:00 05/07/20 22:59 04/10/20 08:34 Acetaminophen (Tylenol) 650 mg Q6H PRN ORAL PRNH/TEMP 04/09/20 13:15 05/09/20 13:14 Albuterol/ Ipratropium (Albuterol/ Ipratropium) 3 ml Q4HR PRN HHN Shortness of Breath 04/09/20 13:15 04/14/20 13:14 Albuterol/ Ipratropium (Combivent Respimat) 1 puff Q4H PRN INH Shortness of Breath 04/09/20 16:00 05/08/20 11:59 04/10/20 00:50 Amiodarone HCl (Cordarone) 200 mg EVERY 12 HOURS ORAL 04/09/20 21:00 07/07/20 20:59 04/10/20 08:35 Amlodipine Besylate (Norvasc) 10 mg DAILY ORAL 04/09/20 16:45 05/09/20 16:44 04/09/20 17:09 Ceftriaxone Sodium 1 gm/ Dextrose 55 ml @ 110 mls/hr Q24H IVPB 04/10/20 01:00 04/15/20 00:59 04/10/20 00:43 Furosemide (Lasix) 20 mg TWICE A DAY ORAL 04/09/20 18:00 05/08/20 17:59 04/10/20 08:32 Gabapentin (Neurontin) 600 mg QHS ORAL 04/09/20 21:00 05/08/20 20:59 04/09/20 20:41 Guaifenesin (Robitussin) 200 mg TIDPRN PRN ORAL For Cough 04/09/20 16:52 07/08/20 16:51 04/10/20 09:26 Ibuprofen (Motrin) 600 mg Q6H PRN ORAL MODERATE PAIN 04/09/20 13:30 05/09/20 13:14 Lorazepam (Ativan) 1 mg Q6H PRN ORAL ANXIETY 04/09/20 20:38 04/16/20 20:37 04/09/20 20:48 Methylprednisolone Sodium Succinate (Solu-MEDROL) 20 mg BID IVP 04/09/20 18:00 07/07/20 17:59 04/10/20 08:35 Metoprolol Succinate (Toprol XL) 50 mg DAILY ORAL 04/10/20 09:00 07/09/20 08:59 04/10/20 08:37 Nitroglycerin (Ntg) 0.4 mg NEEDED PRN SL CHEST PAIN 04/09/20 23:00 05/07/20 22:59 Pantoprazole (Protonix) 15 mg DAILY ORAL 04/10/20 09:00 05/10/20 08:59 Pravastatin Sodium (Pravachol) 40 mg BEDTIME ORAL 04/09/20 21:00 05/08/20 20:59 04/09/20 20:41 Quetiapine Fumarate (SEROqueL) 50 mg QHS ORAL 04/09/20 21:00 05/24/20 08:59 04/09/20 21:50 Rivaroxaban (Xarelto) 15 mg DAILY ORAL 04/10/20 09:00 07/09/20 08:59 04/10/20 08:35 Assessment/Plan Assessment/Plan IMPRESSION: 1. Decompensated congestive heart failure. 2. COPD exacerbation. 3. Amphetamine and opiate use. 4. Hypertension. 5. Active smoker. DISCUSSION: Continue steroids, oxygen, and pulmonary hygiene. Now on Solu- Medrol to 20 mg IV twice a day. Antibiotics per ID. I will follow as pulmonary client development consultant. Rate control per Cardiology and use of amiodarone. Pain treatment as needed. Negative COVID 19 pcr Shayna Adames Omar Syed MD Apr 10, 2020 09:58
--- NOTE | 2020-04-10 09:58 | NUR ---
RD ASSESSMENT & RECOMMENDATIONS SEE CARE ACTIVITY FOR COMPLETE ASSESSMENT DAILY ESTIMATED NEEDS: Needs based on cardiac, pulmoary, obese/ 58kg abw 25-28 kcals/kg [id number] total kcals 1-1.5 g protein/kg 58-87 g total protein Fluid per MD. On lasix. NUTRITION DIAGNOSIS: Decreased sodium and fat intake needs R/T cardiac hx, obesity as evidenced by h/o CHF, pt on diuretics therapy, BMI >40. CURRENT DIET:REGULAR PO DIET RECOMMENDATIONS--->>> CARDIAC/ texture as tolerated or per [facility] ADDITIONAL RECOMMENDATIONS: 1) Calibrated bedscale wt 2) Monitor lytes w/ diuretics, replete as needed 3) Consider [facility]CR[facility]OOKER eval for appropriate texture -> seen by SCR[facility] HOOKER last April 2019, w/ rec for pureed moist w/ NTL 4) Monitor BG w/ solumedrol, need for niss
[2020-04-10 12:00] VITALS: BP 118/67
--- NOTE | 2020-04-10 13:18 | NUR ---
CASE MANAGEMENT:REVIEW SI;AMS. CHF. COPD EXACERBATION. AMPHETAMINE AND OPIATE USE 97.0 78 23 147/80 97% 2L NC FIO2 @ 28% IS;PROTONIX PO QS ROCEPHIN IV Q24 AMIODARONE PO Q12 SOLU-MEDROL IV BID LASIX PO BID COMBIVENT INH Q4 PRN KESHAV NEB HHN Q4 PRN MED SURG STATUS DCP;PATIENT IS FROM HOME
--- NOTE | 2020-04-10 14:25 | NUR ---
HAND-OFF: Report given to JERRY Alfaro.
--- NOTE | 2020-04-10 14:30 | NUR ---
NURSE NOTES: RECEIVED PATIENT SITTING IN A CHAIR. VERBALLY RESPONSIVE. NO ACUTE RESP DISTRESS NOTED. IV ACCESS PATENT AND INTACT. YELLOW GOWN AND SOCKS WORN FOR FALL RISK PRECAUTION. KEEP BED IN THE LOWEST POSITION. CALL LIGHT IS WITHIN REACH. WILL CONT TO MONITOR.
--- NOTE | 2020-04-10 14:59 | NUR ---
HAND-OFF: Report given to DEBI.
--- NOTE | 2020-04-10 15:00 | NUR ---
NURSE NOTES: INFORMED DR ORONA REGARDING PATIENT CONCERNS THAT SHE WANTED TO GO HOME. AWAITING FOR RESPONSE FROM PMD. WILL CONT TO MONITOR.
[2020-04-10 15:37] VITALS: BP 107/66
--- NOTE | 2020-04-10 16:03 | NUR ---
NURSE NOTES received report from Seen by Dr Garcia with order noted discharge today, patient and son at bedside ready to leave or go home, discharge instruction packet handed to patient, discharge teaching done, patient and son verbalized understanding 1603 discharged in stable condition with all belongings taken accompanied by family member wheeled by OPERATIONS ADMINISTRATOR to the parking area, discharged via private car carrie tucker
--- NOTE | 2020-04-10 18:39 | Psych Consult Progress Note ---
Psychiatry Progress Note Psychiatry Progress Note Neurological/Psychiatric: Reports: anxiety, depressed, emotional problems Allergies: Coded Allergies: CODEINE (Verified Allergy, Unknown, 09/03/16) MORPHINE (Unverified Allergy, Unknown, 05/01/19) Objective Data Height (Feet): 5 Height (Inches): 4.00 Weight (Pounds): 215 General Appearance: WD/WN, no apparent distress, alert Additional Comments: alert and oriented times self, place, situation, did not know the date. Mood is irritable. Affect is constricted. Congruent mood. Thought process is concrete. Thought content, no suicidal or homicidal ideation. Cognition is impaired. Insight and judgment, impaired. Assessment/Plan Problem List: (1) Anxiety ICD Codes: F41.9 - Anxiety disorder, unspecified SNOMED: [id number] Assessment/Plan: ASSESSMENT: [place] 1 Dementia with behavior disturbance. Anxiety disorder. PLAN: 1. Seroquel 50 mg at bedtime. 2. Ativan p.r.n. 3. Provide the patient with reality orientation and supportive therapy. Janice Shoemaker MD Apr 10, 2020 18:39
--- NOTE | 2020-04-10 21:15 | Progress Note ---
DATE: 04/10/2020 SUBJECTIVE: This is an elderly female, currently sitting in the chair, comfortable, happy, short of breath is improved. PHYSICAL EXAMINATION: VITAL SIGNS: Blood pressure 118/67, pulse 78, no fever. CHEST: Bilaterally clear. CARDIOVASCULAR: Regular rhythm. ABDOMEN: Soft. EXTREMITIES: CCE. ASSESSMENT: 1. Acute COPD. 2. Hypertension. 3. Anxiety. 4. Substance abuse. 5. Depression. PLAN: We will currently continue current treatment. The patient will continue Xarelto. Discontinue antibiotics. Continue nitroglycerin, amiodarone, gabapentin, pravastatin, Seroquel, and continue PPI. The patient is asking for antibiotics as well for chronic bronchitis, also asking Xanax for anxiety. We will also add albuterol inhaler for home. Discharge home with home health. Followup as outpatient. Hayder Jim M.D. DR: Luke JOB#: [id number] CC:
--- NOTE | 2020-04-11 12:45 | Discharge Summary ---
Discharge Summary Discharge Summary _ DATE OF ADMISSION: 04/07/2020 DATE OF DISCHARGE: 04/10/2020 DISCHARGED BY: Dr. Jim REASON FOR ADMISSION: 79 years old female with past medical history of hypertension, congestive heart failure, COPD,/asthma, atrial fibrillation, was brought by paramedics from home. Patient reported being short of breath. Patient was hypoxic , but improved with supplemental oxygen. She denied fever or chills. She denied chest pain. She denied cough. Patient reported using at home oxygen. Patient admitted to smoking. Laboratory work-up revealed no leukocytosis , stable hemoglobin, hematocrit and platelet count. Stable electrolytes . Troponin negative , proBNP 1503. EKG revealed atrial fibrillation with controlled ventricular response. Urine toxicology screen was positive for amphetamine and opiates. ABG revealed mild hypercapnia and hypoxia In emergency department patient received bronchodilator, empiric antibiotic, analgesic and admitted for further management CONSULTANTS: pulmonary psychiatrist [facility] COURSE: Patient admitted. Blood cultures were negative. SHAILESH COV 2 by PCR was not detected. Patient started on IV steroids with gradual tapering. Antitussive provided as needed. Patient also started on IV diuresis with close monitoring of volumes and cardiorenal parameters. Heart rate was controlled with amiodarone and beta toni. Anticoagulation with Xarelto continued. GI prophylaxis continued. Supplemental oxygen provided and titrated to keep pulse oximetry above 90%. Pulmonary toilet provided. Pain management was addressed as needed. Per psychiatrist patient had dementia with behavioral disturbances and anxiety disorder . Seroquel started on the bedtime , and anxiolytic were on board as needed . Reality orientation and supportive therapy provided.. Patient was counseled on abstinence from illicit street drugs and smoking. Patient clinically stabilized and was ready for discharge . FINAL DIAGNOSES: Decompensated congestive heart failure COPD exacerbation Hypertension Active smoker Amphetamine and opiate user Dementia with behavioral disturbances Anxiety disorder DISCHARGE MEDICATIONS: See Medication Reconciliation list. DISCHARGE INSTRUCTIONS: She was discharged home. Follow-up with a primary care provider in 1 week. I have been assigned to dictate discharge summary for this account. I was not involved in the patient's management. Lorie Manuel NP Apr 11, 2020 12:45
--- NOTE | 2020-04-11 17:04 | NUR ---
*-* INSURANCE *-* discharge summary faxed [facility] AUTH #[id number] F: [phone]
--- NOTE | 2020-04-15 07:30 | History and Physical Report ---
HISTORY OF PRESENT ILLNESS: This is a young female who came to the emergency room for short of breath, hypoxia. The patient was found has a COPD exacerbation and mild CHF. Patient is short of breath for last few days and cough not getting better. PAST MEDICAL HISTORY: Significant for history of asthma, COPD, smoker, hypertension. MEDICATIONS: See the list. ALLERGIES: NKA. FAMILY HISTORY: Noncontributory. SOCIAL HISTORY: Lives at home. 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 REVIEW OF SYSTEMS: Generalized weakness, tired, fatigue, short of breath, cough with sputum production. PHYSICAL EXAMINATION: VITAL SIGNS: Blood pressure is 112/70, pulse 100, respirations 18 to 24, temperature, no fever. HEENT: NAD. CHEST: Bilateral decreased breath sounds. Scattered wheezing and crackles. CARDIOVASCULAR: Regular rhythm. Tachycardia. ABDOMEN: Soft. Positive bowel sounds. Nontender. EXTREMITIES: No edema. GENITOURINARY: Deferred. ASSESSMENT: 1. Acute COPD exacerbation. 2. CHF. 3. Hypertension. PLAN: We will admit on telemetry bed. Start IV steroids, bronchodilator treatments, antibiotics. Consider Pulmonary consult. Hayder Jim M.D. DR: PREETI JOB#: [id number] CC:
--- NOTE | 2020-04-16 15:54 | Coder Physician Query ---
Clarification is required for compliance, coding accuracy, and to reflect severity of illness for this patient Dear Dr. ORONA Date: 04/16/20 Creative Art Director/CDS Name: GEO MOELLER "Heart Failure / CHF" QUERY - HISTORY OF PRESENT ILLNESS: This is an 79-year-old female who came to the hospital with shortness of breath. She lives at home and has a history of COPD and CHF. She denies any chest pain. There was no fever or chills reported. No cough, however, she reports shortness of breath. She is on home oxygen and she is active smoker. Toxicology is positive for amphetamines and opiates. X-ray chest was obtained, which shows cardiomegaly. Troponin negative , proBNP 1503. EKG revealed atrial fibrillation with controlled ventricular response FINAL DIAGNOSES: Decompensated congestive heart failure ------ Please Clarify CHF: Acuity: [] Acute [] Chronic [] Acute on Chronic Type: [] Systolic [] Diastolic [] Systolic & Diastolic (Combined) [] Other: [ ] Unable to determine Physician signature Date Please also document in your Progress Notes and/or Discharge Summary and indicate if the condition was present on admission. RAUL
== END 2020-04-10 16:00 | disposition home or self-care (01) | DRG 194 ==
LOC: EDBD 19:52 → EMR 20:08 → 2E 20:17 → EDBEDREQ 20:59 → 4E 04-09 12:53
DX: I11.0 Hypertensive heart disease with heart failure (principal); J44.1 Chronic obstructive pulmonary disease with (acute) exacerbation; I50.9 Heart failure, unspecified; F15.90 Other stimulant use, unspecified, uncomplicated; F17.200 Nicotine dependence, unspecified, uncomplicated; F15.10 Other stimulant abuse, uncomplicated; F11.10 Opioid abuse, uncomplicated; F03.91 Unspecified dementia, unspecified severity, with behavioral disturbance; F41.9 Anxiety disorder, unspecified; Z88.6 Allergy status to analgesic agent; I48.91 Unspecified atrial fibrillation; Z79.01 Long term (current) use of anticoagulants
CPT/HCPCS: 36415; 36600; 71045; 80053; 80307; 82803; 83880; 84484; 85025; 87040; 93005; 94640; 94664; 99285; J7620